=== PATIENT | male | born 1955 | race Caucasian/White ===

== ENCOUNTER → 2017-08-30 14:03 | Outpatient (CLI) | payer OTHER, SELFPAY ==
[2017-08-30 15:52] LABS: AST(SGOT) 28 U/L (15-37); Alanine Aminotransfer ALT/SGPT 42 U/L (16-61); Albumin, Serum 3.8 g/dL (3.2-5.0); Alkaline Phosphatase 78 U/L (45-117); Bilirubin, Direct 0.15 mg/dL (0.00-0.30); Cholesterol 113 mg/dL (200); Globulin 3.4 g/dL (2.2-4.2); High Density Lipoprotein 55 mg/dL; Protein, Total 7.2 g/dL (6.4-8.2); Triglycerides 67 mg/dL; Very Low Density Lipoprotein 13 mg/dL (5-40)
== END ==
PROVIDERS: Family Provider Family Medicine; PCP Family Medicine; Visit Provider Internal Medicine Cardiovascular Disease
DX: E78.5 Hyperlipidemia, unspecified (principal); Z79.899 Other long term (current) drug therapy
CPT/HCPCS: 36415; 80061; 80076

== ENCOUNTER → 2017-11-05 12:56 | Outpatient (CLI) | payer OTHER, SELFPAY ==
--- NOTE | 2017-11-05 12:56 | DT_ITS ---
This patient was seen during an EMR downtime November 01, 2017 - November 08, 2017. This patient may have a combination of paper and electronic documentation or all paper documentation. All documentation is viewable within the e-chart portion of [facility] for each patient visit.
== END ==
PROVIDERS: Family Provider Family Medicine; PCP Family Medicine; Visit Provider Family Medicine
DX: R19.7 Diarrhea, unspecified (principal)
CPT/HCPCS: 87493; 87506

== ENCOUNTER → 2017-11-12 08:32 | Outpatient (CLI) | payer OTHER, SELFPAY ==
[2017-11-12 10:51] LABS: Anion Gap 6 (5-15); BUN 17 mg/dL (7-18); BUN/Creat Ratio 18.3 RATIO (10-20); Calcium,Total 8.8 mg/dL (8.5-10.1); Chloride 107 mmol/L (98-107); Creatinine, Serum 0.93 mg/dL (0.70-1.30); EST Glomerular Filtration Rate 88 mL/min (>60); Est Glom Filt Rate - Afr Amer 106 mL/min (>60); Glucose 110 mg/dL (74-106); Potassium 4.4 mmol/L (3.5-5.1); Sodium Level 142 mmol/L (136-145)
== END ==
PROVIDERS: Family Provider Family Medicine; PCP Family Medicine; Visit Provider Family Medicine
DX: E11.9 Type 2 diabetes mellitus without complications (principal)
CPT/HCPCS: 36415; 80048

== ENCOUNTER → 2018-05-12 08:37 | Outpatient (CLI) | payer OTHER, SELFPAY ==
[2018-04-25 08:34] VITALS: BMI 31.2
[2018-05-12 10:44] LABS: Anion Gap 7 (5-15); BUN 20 mg/dL (7-18); BUN/Creat Ratio 24.1 RATIO (10-20); Calcium,Total 8.5 mg/dL (8.5-10.1); Chloride 107 mmol/L (98-107); Cholesterol 136 mg/dL (200); Creatinine, Serum 0.83 mg/dL (0.70-1.30); EST Glomerular Filtration Rate 100 mL/min (>60); Est Glom Filt Rate - Afr Amer 121 mL/min (>60); Glucose 116 mg/dL (74-106); High Density Lipoprotein 52 mg/dL; Potassium 4.1 mmol/L (3.5-5.1); Sodium Level 140 mmol/L (136-145); Triglycerides 75 mg/dL; Very Low Density Lipoprotein 15 mg/dL (5-40)
--- OUTSIDE RECORDS SUMMARY | 2018-06-28 01:50 | XMS RPT_ITS ---
:1955 Author Organization OHIP Care Team Providers Name Role Phone Duglas Smith Attending Unavailable Smith, Duglas Primary Care Unavailable Brian Espinoza Attending Unavailable Smith, Duglas Primary Care Unavailable Elizabeth, Florence Attending Unavailable Alexis, Brian Attending Unavailable Smith, Duglas Referring Unavailable Smith, Duglas Primary Care Unavailable Brian Espinoza Attending Unavailable Smith, Duglas Referring Unavailable Smith, Duglas Primary Care Unavailable Jolliff, Meghan Attending Unavailable Jolliff, Meghan Referring Unavailable Smith, Duglas Primary Care Unavailable Smith, Duglas Attending Unavailable Smith, uDglas Primary Care Unavailable Alexis, Brian Attending Unavailable Smith, Duglas Referring Unavailable PROBLEMS PROBLEMS DATE TYPE CONDITION / CODE ATTENDING STATUS SOURCE 04/25/2018 Unknown E78.5 - Brian Espinoza Active [place] Hyperlipidemia, Community unspecified / Hospital E78.5(ICD-10) Repository 04/25/2018 Unknown I25.10 - Brian Espinoza Active [place] Atherosclerotic heart Community disease of [facility] coronary artery Repository without angina pectoris / I25.10(ICD-10) 11/12/2017 Unknown E11.9 - Type 2 Duglas Smith Active [place] diabetes mellitus [facility] without complications Hospital / E11.9(ICD-10) Repository 10/04/2017 Unknown I10 - Essential Brian Espinoza (primary) Community hypertension / Hospital I10(ICD-10) Repository PROCEDURES PROCEDURES No Procedure Records FoundRESULTS RESULTS BASIC METABOLIC Collected: 05/12/2018 Status: F Source: [place] PROFILE (BMP) 8:[address] [facility]PITAL REPOSITORY TYPE CODE TESTS RESULT OUT OF RANGE REFERENCE UNITS LAB L501.0100 74-106 mg/dL High GLU 116 Result Comment: Fasting Glucose result from 100 to 125 mg/dL suggests IMPAIRED HOMEOSTASIS per A.D.A. criteria. Please note revised GLUCOSE reference range effective 2017. LAB L501.1000 7-18 mg/dL High BUN 20 LAB L501.1100 0.70-1.30 mg/dL Normal CREAT,SERUM 0.83 Result Comment: The validity of the calculated GFR AND GFRAA in patients over 70 years has not been determined. Clinical correlation is essential. LAB L501.1110 >60 mL/min Normal EST GFR 100 Result Comment: Non- GFR Calc LAB L501.1115 >60 mL/min Normal EST GFR - AA 121 Result Comment: GFR Calc LAB L501.1300 10-20 RATIO High BUN/CRE 24.1 LAB L501.2200 8.5-10.1 mg/dL CA Normal 8.5 LAB L501.5300 136-145 mmol/L NA Normal 140 LAB L501.5600 3.5-5.1 mmol/L K Normal 4.1 LAB L501.5900 98-107 mmol/L CL Normal 107 LAB L501.6100 21.0-32.0 mmol/L Normal CO2 26.0 LAB L501.6200 5-15 Normal GAP 7 Performed By: #### L500.2500, L500.4100 #### [facility] [address] [place], [place], [address] LIPID PROFILE Collected: 05/12/2018 Status: F Source: [place] 8:38 AM [facility] REPOSITORY TYPE CODE TESTS RESULT OUT OF RANGE REFERENCE UNITS LAB L501.4900 200 mg/dL Normal CHOL 136 Result Comment: <200 mg/dL Desirable 200-240 mg/dL Borderline >240 mg/dL High Risk LAB L501.5000 mg/dL Normal TRIG 75 Result Comment: The drugs N-Acetylcysteine and Metamizole may falsely depress this assay. Serum Triglycerides Reference Interval Normal <150 mg/dL Borderline high 150 - 199 mg/dL High 200 - 499 mg/dL Very High > or = 500 mg/dL LAB L501.6400 mg/dL Normal HDL 52 Result Comment: The drugs N-Acetylcysteine and Metamizole may falsely depress this assay. Reference Range HDL <40 mg/dL Low HDL Cholesterol HDL >or= 60 mg/dL High HDL Cholesterol LAB L501.6500 0-130 mg/dL Normal LDL 69 LAB L501.6600 5-40 mg/dL Normal VLDL 15 Performed By: #### L500.2500, L500.4100 #### [facility] [address] [place], [place], [address] CARDIOLOGY VISIT Observed: 04/25/2018 Status: F Source: [place] REPORT 8:59 AM [facility] REPOSITORY [facility] [address] [place] [address] OFFICE VISIT Date of Service: 04/25/18 MR#: [id number] Acct: [id number] Name: FLORES CURRY Rep #: [id number] : 1955 Provider: Brian Espinoza MD Age/Sex: 62/M Location: [facility] Status: Signed HPI HPI Chief Complaint: Routine f/u Details: Mr. Curry Is a very pleasant 62-year-old gentleman, non diabetic, with hypertension, hypercholesterolemia, positive premature coronary artery history in his father and paternal uncle, who presented to [facility] on 08/20/13 with acute anterior lateral myocardial infarction. Patient was emergently transported to [facility] where he underwent successful thrombectomy and bare metal stenting of the proximal LAD with 4.50 x 20 bare-metal vision stent. In addition he was found to have a critical lesion in his mid right coronary artery. He returned several weeks later electively to [facility] and underwent successful angioplasty and stenting of the mid RCA with a 4.0X 23 bare-metal stent. His LVEF obtained at the time of his anterior GA demonstrated this to be [id number]%, but repeat echocardiogram done in December 2013 demonstrates an ejection fraction of 65% post-GA. Both procedures were done via the right radial. Patient is taking care of his convalescing ill who recently had a seizure, and is slowly getting back to normal with a walker. He is dissipating stress by walking, exercising, and working on his [employer] truck. He reports that she is getting better, and participating more at home which is improving his stress. His blood pressure is as recorded on his iPhone, are in the 1 teens to 120s on a regular basis. The patient denies any chest pain, angina, shortness of breath or dyspnea on exertion. He is taking and tolerating his medicines well. interoffice today's blood pressure is 140/90 and pulse is 80 and regular. His physical exam is as below. His lipids as of 03/07/16 showed HDL of 49 and LDL of 45. His lipids as of 09/04/16 showed LDL of 46 and an HDL of 57. His lipids as of 02/23/17 showed LDL 37 and HDL of 54. Lipids as of 08/30/17 show an HDL of 55 and LDL of 45. Intake Vital Signs04/25/18 Height 5 ft 8.75 in 04/25/18 Weight: 210 lb 04/25/18 Body Mass Index (BMI) 31.2 04/25/18 Blood Pressure 140/90 H Intake Visit Reasons: 6 M [employer] Developer Required: No Is patient in pain?: No Allergies Tetanus Vaccines and Toxoid [Tetanus Vaccines AND Toxoid] Allergy (Verified 04/19/18 11:06) Unknown Medications Aspirin [Aspirin EC] 81 mg PO DAILY 03/14/14 [History Confirmed 04/25/18] nitroglycerin 0.4 mg sublingual tablet 0.4 mg SUBLINGUAL Q5- 15M PRN 10/01/17 [History Confirmed 04/25/18] atorvastatin 80 mg tablet 80 mg PO QDAY #90 tab 10/04/17 [Rx Confirmed 04/25/18] carvedilol 12.5 mg tablet 12.5 mg PO BID #180 tab 10/04/17 [Rx Confirmed 04/25/18] lisinopril 20 mg tablet 20 mg PO BID #180 tab 10/04/17 [Rx Confirmed 04/25/18] PFS Medical History Obesity (Chronic) Nonsustained ventricular tachycardia (Chronic) Anterolateral myocardial infarction (Chronic) Hypertension (Chronic) Hyperlipidemia (Chronic) Atherosclerotic heart disease of [place] coronary artery without angina pectoris (Chronic) Surgical History History of coronary artery stent placement (Chronic 08/2013) History of tonsillectomy (Resolved) History of vasectomy (Resolved) Family History Father CAD (coronary artery disease) Myocardial infarction Social History Smoking Status: Never smoker alcohol intake: never substance use type: does not use ROS Const Const: Positive for other (Feels well); negative for fatigue, weakness, body ache, fever(s), headache(s), chills, frequent falls, night sweats, daytime sleepiness, difficulty sleeping, excessive sweating, weight gain, weight loss, increased appetite, poor appetite or anorexia Eyes Eyes: Negative for blind spots, loss of peripheral vision, transient loss of vision, blurry vision, change in vision, double vision, floaters, tunnel vision or other ENT ENT: Negative for headache(s), dizziness, hearing loss, tinnitus, Nosebleed/epistaxis, balance problems, post nasal drip, lip swelling, tongue swelling, bleeding gums, hoarseness, neck pain, dry mouth or other Cardio Chest Pain: No Resp Respiratory: Negative for SOB with activity, SOB at rest, SOB orthopnea\SOB lying down, Coughing up blood/hemoptysis, chest congestion, pain on inspiration, snoring, stridor, wheezing, crackles, paroxysmal nocturnal dyspnea or other GI GI: Negative nausea, vomiting, heartburn, constipation, belching, bloating, cramping, vomiting blood/hematemesis, bright, red blood in stools, black,tarry stools, loose stools, Difficulty Swallowing or other : Negative for hematuria, frequent nighttime urination/ nocturia, erectile dysfunction or abnormal vaginal bleeding Musc Musc: Negative for balance problems, muscle aches/ myalgia, muscle weakness or joint pain Skin Skin: Negative redness, non-healing lesions, rash, unusual bruising, skin ulcer, wounds, jaundice or other Neuro Neuro: Negative for weakness, headache(s), frequent falls, blurry vision, double vision, dizziness, lightheadedness, near syncope, syncope, orthostatic symptoms, confusion, memory loss, restless legs, vertigo, seizures, lack of coordination or other [place]ashi Hematologic/Lymphatic: Negative for easy bleeding, easy bruising, enlarged lymph nodes or other Endo Endo: Negative for fatigue, excessive sweating, cold intolerance, heat intolerance, flushing, increased thirst/drinking, increased hunger, hair loss, hair growth or other Psych Psych: Negative for anxiety, depression, thoughts of harming anyone, thoughts of harming yourself, visual hallucinations, panic attacks or audible hallucinations Allergy Allergy/Immunology: Negative for lip swelling, Negative for tongue swelling, Negative for rash, Negative for throat swelling, Negative for hives Cardiology Exam Const Appearance: cooperative, healthy appearing and no acute distress Nutritional Appearance: well nourished Orientation: alert, oriented x3 and oriented to person Head Head: normal to inspection, atraumatic and normocephalic Nose: external nose normal Face and Sinus: face symmetric Mouth: oral mucosae normal Eyes General: appearance normal, both eyes and all related structures Eyelids: eyelids normal Conjunctivae: conjunctivae normal Pupils: PERRL and normal by confrontation EOM: EOM intact bilaterally Neck Neck: normal visual inspection and full ROM Carotids: normal carotid upstroke Chest Chest inspection: normal inspection of the chest Auscultation: Bilateral: Clear to Auscultation Cardio Palpation: normal PMI Rate: regular rate Rhythm: regular rhythm Heart sounds: S1 normal and S2 normal GI GI: normal to inspection, no hepatosplenomegaly and bowel sounds present Neuro General: alert, oriented x3, awake, CN's II-XI intact bilaterally and moves all extremities Skin Skin: no rashes or lesions noted Extremities Pulses: Normal: Right Femoral Pulse, Left Femoral Pulse, Right Dorsalis Pedis Pulse, Left Dorsalis Pedis Pulse, Right Posterior Tibial Pulse, Left Posterior Tibial Pulse, Right Radial Pulse, Left Radial Pulse Lower Extremity Edema: None: Bilateral Psych Psychological: normal affect Assessment AND Plan 1. Atherosclerotic heart disease of [place] coronary artery without angina pectoris I25.10 Thrombectomy w/BMS to Prox-Mid LAD 4.5 x 20 mm VeriFlex 08/20/13; and BMS to RCA w/ 4 x 23 mm Vision 09/06/13 @ [facility] Plan 1. Coronary artery disease: No exertional anginal symptoms at this time. No indication for any additional testing. His blood pressure for the most part at home as recorded on his iPhone is under very good control. He is consistently elevated when he comes to see the doctor, but it is actually getting better. Recommend he continue his baby aspirin, Coreg, lisinopril. No indication for stress testing at this time. 2. Hyperlipidemia E78.5 Plan 2. Hyperlipidemia: His LDL and HDL cholesterol are at goal. Continue Lipitor. 3. Return office in 6 months. This note was generated using a voice recognition system and there may be incorrect words, spelling or punctuation that were not noted when reviewing the office note prior to saving. Plan Detail Follow Up +6M (Espinoza) Coding Level of Care Code Off vis,est,level 3 Diagnoses Atherosclerotic heart disease of [place] coronary artery without angina pectoris I25.10 Hyperlipidemia E78.5 Coding Level of Care Code Off vis,est,level 3 Diagnoses Atherosclerotic heart disease of [place] coronary artery without angina pectoris I25.10 Hyperlipidemia E78.5 04/25/18 0859 <Electronically signed by Brian Espinoza MD> Date Brian Espinoza MD [facility] Signature: Date (if applicable) CC: Duglas Smith MD DOWNTIME REPORT Observed: 11/18/2017 Status: F Source: [place] 2:33 PM [facility] REPOSITORY [facility] Medical Records Department [address] [place] [address] Downtime Report MR#: [id number] Acct: [id number] Name: FLORES CURRY Rep #: [id number] : 1955 62 From: Zafar Horton PCP: Duglas Smith MD Status: REG CLI This patient was seen during an EMR downtime November 01, 2017 - November 08, 2017. This patient may have a combination of paper and electronic documentation or all paper documentation. All documentation is viewable within the e-chart portion of [facility] for each patient visit. BASIC METABOLIC Collected: 11/12/2017 Status: F Source: [place] PROFILE (BMP) 8:34 AM [facility] REPOSITORY TYPE CODE TESTS RESULT OUT OF RANGE REFERENCE UNITS LAB L501.0100 74-106 mg/dL High GLU 110 Result Comment: Fasting Glucose result from 100 to 125 mg/dL suggests IMPAIRED HOMEOSTASIS per A.D.A. criteria. Please note revised GLUCOSE reference range effective 2017. LAB L501.1000 7-18 mg/dL Normal BUN 17 LAB L501.1100 0.70-1.30 mg/dL Normal CREAT,SERUM 0.93 Result Comment: The validity of the calculated GFR AND GFRAA in patients over 70 years has not been determined. Clinical correlation is essential. LAB L501.1110 >60 mL/min Normal EST GFR 88 Result Comment: Non- GFR Calc LAB L501.1115 >60 mL/min Normal EST GFR - AA 106 Result Comment: GFR Calc LAB L501.1300 10-20 RATIO Normal BUN/CRE 18.3 LAB L501.2200 8.5-10.1 mg/dL CA Normal 8.8 LAB L501.5300 136-145 mmol/L NA Normal 142 LAB L501.5600 3.5-5.1 mmol/L K Normal 4.4 LAB L501.5900 98-107 mmol/L CL Normal 107 LAB L501.6100 21.0-32.0 mmol/L Normal CO2 29.0 LAB L501.6200 5-15 Normal GAP 6 Performed By: #### L500.2500 #### [facility] [address] [place], [address] Observed: 11/05/2017 Status: C Source: [place] ENTERIC PATHOGEN 12:40 PM [facility] PANEL STOOL REPOSITORY PANEL STOOL FINAL REPORT [facility] IDENTIFICATION Salmonella I 4,[5],12:i:-- TESTING PERFORMED AT [facility]. ORIGINAL REPORT ON FILE IN LAB CONTAINS ADDITIONAL TEST SITE INFORMATION. * This is an amended result. * A prior result that was reported as final has been changed. 11/12/17 1526 by KAMILAH Previously reported as: [facility] REPORT WAS ADDED * This is an amended result. * A prior result that was reported as final has been changed. 12/01/17 1406 by KAMILAH Previously reported as: [facility] REPORT RECIEVED 11/30/17 Salmonella species detected. Susceptibility testing not routinely performed but can be completed at the request by the ordering physician. Treatment is often not needed in many cases. This is an amplified DNA test which makes it both specific and sensitive. Copy of report sent to Infection Control Printer [id number] 11/06/17 0906 [place]TON. RESULTS CALLED TO [place] OFFICE - 11/06/17 0906 Ewelina Castorena. REPORT READ BACK BY SAME. . Normal Reference Range = Not Detected FINAL [facility] REPORT IDENTIFICATION SALMONELLA 4,5,12:i.-- TESTING PERFORMED AT [facility]. ORIGINAL REPORT ON FILE IN LAB CONTAINS ADDITIONAL TEST SITE INFORMATION. CAMPYLOBACTER Not Detected Salmonella Salmonella sp. Detected Shigella sp. Not Detected Shiga Toxin Not Detected Yersinia Not Detected VIBRIO Not Detected Norovirus Not Detected Rotavirus Not Detected ORGANISM 1: Salmonella Sp. Performed By: #### M100.637, M100.6796 #### [facility] [address] [place], [address] Observed: 11/05/2017 Status: F Source: [place] CAPELLAN (MOLECULAR) 12:40 PM [facility] REPOSITORY Cdiff-Molecular C. Diff DNA Negative- No toxigenic C. Diff DNA Detected NAAT METHOD Testing was performed using nucleic acid amplification Performed By: #### M100.637, M100.6796 #### [facility] [address] [place], [address] OFFICE VISIT REPORT Observed: 10/19/2017 Status: F Source: [place] 12:12 PM [facility] REPOSITORY [facility] [address] [address] OFFICE VISIT Date of Service: 10/19/17 MR#: [id number] Acct: [id number] Patient: FLORES CURRY Rep #: [id number] : 1955 Provider: Brian Espinoza MD Age/Sex: 61/M [place] [facility] [place]: Signed Intake Intake Visit Reasons: 2 wk bp ck per DJN Allergies Tetanus Vaccines and Toxoid [Tetanus Vaccines AND Toxoid] Allergy (Verified 10/04/17 08:21) Unknown Medications Aspirin [Aspirin EC] 81 mg PO DAILY 03/14/14 [History Confirmed 10/04/17] nitroglycerin 0.4 mg sublingual tablet 0.4 mg SUBLINGUAL Q5- 15M PRN 10/01/17 [History Confirmed 10/04/17] atorvastatin 80 mg tablet 80 mg PO QDAY #90 tab 10/04/17 [Rx Confirmed 10/04/17] carvedilol 12.5 mg tablet 12.5 mg PO BID #180 tab 10/04/17 [Rx Confirmed 10/04/17] lisinopril 20 mg tablet 20 mg PO BID #180 tab 10/04/17 [Rx Confirmed 10/04/17] Nursing Note During Office Visit 10/04/2017 pt BP was 148/94, Dr. Espinoza instructed pt to 1.) increase Lisinopril to 20 mg po twice daily, 2.) continue Coreg 12.5 mg po twice daily. Pt denies SOB, chest discomfort, dizziness, no lower extremity edema present. BP 148/94, HR 72, RR 18, home BP readings average 110/72. Reviewed the following with Zbigniew Cutler NP pt is to 1.) continue current medication therapy, 2.) bring BP cuff to next Office visit for correlation. 10/19/17 1212 <Electronically signed by Zbigniew ULLOAC> Date Zbigniew Newberry Omayra FRANCO-C Janeenigner Signature: Date (if applicable) CC: Geetha Bowers CARDIOLOGY VISIT Observed: 10/04/2017 Status: F Source: [place] REPORT 9:07 AM [facility] REPOSITORY [facility] [address] [place] [address] OFFICE VISIT Date of Service: 10/04/17 MR#: [id number] Acct: [id number] Name: FLORES CURRY Rep #: [id number] : 1955 Provider: Brian Espinoza MD Age/Sex: 61/M Location: [facility] Status: Signed HPI HPI Chief Complaint: Routine f/u Details: Mr. Curry Is a very pleasant 61-year-old gentleman, non diabetic, with hypertension, hypercholesterolemia, positive premature coronary artery history in his father and paternal uncle, who presented to [facility] on 08/20/13 with acute anterior lateral myocardial infarction. Patient was emergently transported to [facility] where he underwent successful thrombectomy and bare metal stenting of the proximal LAD with 4.50 x 20 bare-metal vision stent. In addition he was found to have a critical lesion in his mid right coronary artery. He returned several weeks later electively to [facility] and underwent successful angioplasty and stenting of the mid RCA with a 4.0X 23 bare-metal stent. His LVEF obtained at the time of his anterior GA demonstrated this to be [id number]%, but repeat echocardiogram done in December 2013 demonstrates an ejection fraction of 65% post-GA. Both procedures were done via the right radial. Patient is taking care of his convalescing ill who recently had a seizure, and is slowly getting back to normal with a walker. He is dissipating stress by walking, exercising, and working on his [employer] truck. Nonetheless he is quite stressed out, and is looking forward for her illness to be over. interoffice today's blood pressure is 160/98 and recheck it finding it to be 142/92. And pulse is 72 and regular. His physical exam is as below. His lipids as of 03/07/16 showed HDL of 49 and LDL of 45. His lipids as of 09/04/16 showed LDL of 46 and an HDL of 57. His lipids as of 02/23/17 showed LDL 37 and HDL of 54. Lipids as of 08/30/17 show an HDL of 55 and LDL of 45 Intake Vital Signs10/04/17 Blood Pressure 142/92 10/04/17 Pulse Rate 70 Intake Visit Reasons: 6 M FU Allergies Tetanus Vaccines and Toxoid [Tetanus Vaccines AND Toxoid] Allergy (Verified 10/04/17 08:21) Unknown Medications Aspirin [Aspirin EC] 81 mg PO DAILY 03/14/14 [History Confirmed 10/04/17] nitroglycerin 0.4 mg sublingual tablet 0.4 mg SUBLINGUAL Q5- 15M PRN 10/01/17 [History Confirmed 10/04/17] atorvastatin 80 mg tablet 80 mg PO QDAY #90 tab 10/04/17 [Rx Confirmed 10/04/17] carvedilol 12.5 mg tablet 12.5 mg PO BID #180 tab 10/04/17 [Rx Confirmed 10/04/17] lisinopril 20 mg tablet 20 mg PO BID #180 tab 10/04/17 [Rx Confirmed 10/04/17] [facility] Medical History Obesity (Chronic) Nonsustained ventricular tachycardia (Chronic) Anterolateral myocardial infarction (Chronic) Hypertension (Chronic) Hyperlipidemia (Chronic) Atherosclerotic heart disease of te[place] coronary artery without angina pectoris (Chronic) Surgical History History of coronary artery stent placement (Chronic 08/2013) History of tonsillectomy (Resolved) History of vasectomy (Resolved) Family History Father CAD (coronary artery disease) Myocardial infarction Social History Smoking Status: Never smoker alcohol intake: never substance use type: does not use ROS Const Const: Positive for other (Admits to being under a lot of stress); negative for fatigue, weakness, difficulty sleeping, frequent falls, headache(s) or excessive sweating Eyes Eyes: Negative for loss of peripheral vision, transient loss of vision, blurry vision or double vision ENT ENT: Negative for headache(s), dizziness, Nosebleed/epistaxis or balance problems Cardio Chest Pain: No Edema: None Muscle aches with walking: None Resp Respiratory: Negative for SOB with activity, SOB at rest, SOB orthopnea\SOB lying down or paroxysmal nocturnal dyspnea GI GI: Negative nausea or heartburn : Negative for hematuria Musc Musc: Negative for muscle aches/ myalgia, muscle weakness, joint pain or balance problems Skin Skin: Negative non-healing lesions, unusual bruising or rash Neuro Neuro: Negative for weakness, frequent falls, blurry vision, headache(s), dizziness, lightheadedness, orthostatic symptoms or double vision Tashi Hematologic/Lymphatic: Negative for easy bruising Endo Endo: Negative for fatigue, excessive sweating or increased thirst/drinking Psych Psych: Negative for anxiety or depression Allergy Allergy/Immunology: Negative for hives, Negative for rash Cardiology Exam Const Appearance: cooperative, healthy appearing and no acute distress Nutritional Appearance: well nourished Orientation: alert, oriented x3 and oriented to person Head Head: normal to inspection, atraumatic and normocephalic Nose: external nose normal Face and Sinus: face symmetric Mouth: oral mucosae normal Eyes General: appearance normal, both eyes and all related structures Eyelids: eyelids normal Conjunctivae: conjunctivae normal Pupils: PERRL and normal by confrontation EOM: EOM intact bilaterally Neck Neck: normal visual inspection and full ROM Carotids: normal carotid upstroke Chest Chest inspection: normal inspection of the chest Auscultation: Bilateral: Clear to Auscultation Cardio Palpation: normal PMI Rate: regular rate Rhythm: regular rhythm Heart sounds: S1 normal and S2 normal GI GI: normal to inspection, no hepatosplenomegaly and bowel sounds present Neuro General: alert, oriented x3, awake, CN's II-XI intact bilaterally and moves all extremities Skin Skin: no rashes or lesions noted Extremities Pulses: Normal: Right Femoral Pulse, Left Femoral Pulse, Right Dorsalis Pedis Pulse, Left Dorsalis Pedis Pulse, Right Posterior Tibial Pulse, Left Posterior Tibial Pulse, Right Radial Pulse, Left Radial Pulse Lower Extremity Edema: None: Bilateral Psych Psychological: normal affect Assessment AND Plan 1. Atherosclerotic heart disease of tejon coronary artery without angina pectoris I25.10 Thrombectomy w/BMS to Prox-Mid LAD 4.5 x 20 mm VeriFlex 08/20/13; and BMS to RCA w/ 4 x 23 mm Vision 09/06/13 @ [facility] Plan 1. Coronary artery disease: No exertional anginal symptoms at this time. No indication for any additional testing. Recommend he continue baby aspirin, Coreg and lisinopril. 2. Hypertension I10 Plan 2. Hypertension: His blood pressure is not optimized and has not been optimized on each visit. Although he is somewhat stressed out, I am concerned about uncontrolled hypertension at home. I recommended increasing his lisinopril to 20 mrem p.o. twice daily, continue Coreg 12.5 mg p.o. twice daily, and returning in 2 weeks for a blood pressure check. If his blood pressure is still elevated, would recommend hydrochlorothiazide 12.5 mg p.o. daily. 3. Hyperlipidemia E78.5 Plan 3. Hyperlipidemia: His LDL and HDL cholesterol are at goal. Continue Lipitor. 4. Return office in 6 months. This note was generated using a voice recognition system and there may be incorrect words, spelling or punctuation that were not noted when reviewing the office note prior to saving. 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 Hypertension I10 Hyperlipidemia E78.5 Coding Level of Care Code Off vis,est,level 3 Diagnoses Atherosclerotic heart disease of [place] coronary artery without angina pectoris I25.10 Hypertension I10 Hyperlipidemia E78.5 10/04/17 0907 <Electronically signed by Brian Espinoza MD> Date Brian Espinoza MD Cosigner Signature: Date (if applicable) CC: Duglas Smith MD LIVER PROFILE Collected: 08/30/2017 Status: F Source: LEXI 2:04 PM [facility] Order Comment: Order Date: 02/27/17 Order Info: [id number] - *Hepatic Function Panel Order Info: [id number] - *Lipid Profile CC PCP Comments: 12 hours fasting, may have water. TYPE CODE TESTS RESULT OUT OF RANGE REFERENCE UNITS LAB L501.1500 6.4-8.2 g/dL Normal T PROT 7.2 LAB L501.1800 3.2-5.0 g/dL Normal ALB 3.8 LAB L501.1950 2.2-4.2 g/dL Normal GLOB 3.4 LAB L501.4100 15-37 U/L Normal AST 28 LAB L501.4305 45-117 U/L Normal ALK P 78 LAB L501.4405 16-61 U/L Normal ALT 42 Result Comment: Please note revised ALT reference range effective 2017. LAB L501.4600 0.20-1.00 mg/dL Normal T BILI 0.70 LAB L501.4700 0.00-0.30 mg/dL Normal D BILI 0.15 Performed By: #### L500.3400 #### [facility] [address] [place], [place], [address] LIPID PROFILE Collected: 08/30/2017 Status: F Source: LEXI 2:04 PM [facility] Order Comment: Order Date: 02/27/17 Order Info: [id number] - *Hepatic Function Panel Order Info: [id number] - *Lipid Profile CC PCP Comments: 12 hours fasting, may have water. TYPE CODE TESTS RESULT OUT OF RANGE REFERENCE UNITS LAB L501.4900 200 mg/dL Normal CHOL 113 Result Comment: <200 mg/dL Desirable 200-240 mg/dL Borderline >240 mg/dL High Risk LAB L501.5000 mg/dL Normal TRIG 67 Result Comment: The drugs N-Acetylcysteine and Metamizole may falsely depress this assay. Serum Triglycerides Reference Interval Normal <150 mg/dL Borderline high 150 - 199 mg/dL High 200 - 499 mg/dL Very High > or = 500 mg/dL LAB L501.6400 mg/dL Normal HDL 55 Result Comment: The drugs N-Acetylcysteine and Metamizole may falsely depress this assay. Reference Range HDL <40 mg/dL Low HDL Cholesterol HDL >or= 60 mg/dL High HDL Cholesterol LAB L501.6500 0-130 mg/dL Normal LDL 45 LAB L501.6600 5-40 mg/dL Normal VLDL 13 Performed By: #### L500.4100 #### [facility] [address] [place], [address] ALLERGIES ALLERGIES DATE TYPE / CODE NAME / CODE REACTION SEVERITY SOURCE 04/19/2018 Drug Tetanus Unknown Unknown [facility] Allergy/[facility] 972391(SNOM Toxoid/[id number] Repository ED CT) 19(RXNORM) ENCOUNTERS ENCOUNTERS ADMIT/DISCHARGE ACCOUNT ADMITTING ENCOUNTER LOCATION SOURCE NUMBER CLASS 05/12/2018 [id number] Ambulatory [facility] 6 [facility] ing:MFPLAB Repository 04/25/2018/ [id number] Ambulatory BMSBuilding:B [place] 8 3 [facility] Repository 11/12/2017 [id number] Ambulatory [facility] 3 [facility] ing:MFPLAB Repository 11/05/2017 [id number] Ambulatory [facility] 2 [facility] ing:LAB Repository 10/19/2017/ [id number] Ambulatory BMSBuilding:B [place] 8 1 [facility] Repository 10/04/2017/ [id number] Ambulatory BMSBuilding:B [place] 8 1 [facility] Repository 10/01/2017 [id number] Ambulatory BMSBuilding:B [place] 1 [facility] Repository 08/30/2017 [id number] Ambulatory [facility] 5 [facility] ing:MFPLAB Repository PAYERS PAYERS ENCOUNTER GUARANTOR PAYER SUBSCRIBER SOURCE 05/12/2018 FLORES [id number] Primary Insurance:MED FLORES KRISHNA: [place] [facility]ON [facility] [id number] Number: [facility] [address]Sdz: [phone]) [id number] Repository [phone] () Date:1155-90-86[address] [address], [place] [address]EV: CHECK WEBSITE 05/12/2018 Secondary NOT GIVENUNK [place] Insurance:SELF PAY [facility]: Effective Repository Date:2018-05-12 04/25/2018 FLORES Jaspal [id number] Primary Insurance:MED FLORES Jaspal MIRELLADOB: Lexi CHIVO [employer] TPAPolicy [id number], [place] Number: [facility] [address]Lug: 330 [id number] Repository [phone] () Date:1148-78-64IE [address] [address], [place] [address]CJ: CHECK WEBSITE 04/25/2018 Secondary NOT GIVENUNK [place] Insurance:SELF PAY [facility] Number: Effective Repository Date:2018-04-25 11/12/2017 FLORES Jaspal [id number] Primary Insurance:MED FLORES JENNINGSB: [place] CHIVO [employer] TPAP[employer]icy [id number], [place] Number: Hospital [address]Xdh: 330 [id number] Repository [phone] () Date:1801-97-40CU [address] [address]DSVGXLPD[place], [place] [address]GI: CHECK WEBSITE 11/12/2017 Secondary NOT GIVENUNK [place] Insurance:SELF PAY [facility] Number: Effective Repository Date:2017-11-12 11/05/2017 FLORES Jaspal [id number] Primary Insurance:MED FLORES Jaspal MIRELLADOB: Lexi CHIVO [employer] TP[employer] [id number], [place] Number: [facility] [address]Ljs: 330 [id number] Repository [phone] () Date:1404-50-96SY [address] [address], [place] [address]DK: CHECK WEBSITE 11/05/2017 Secondary NOT GIVENUNK [place] Insurance:SELF PAY [facility] Number: Effective Repository Date:2017-11-05 10/19/2017 FLORES [id number] Primary Insurance:MED FLORES CURRYDOB: [place] CHIVO M[employer] TPAP[employer]icy [id number] [place] Number: Hospital [address]Tui: [phone] [id number] Repository [phone] (HP) Date:6571-74-71RY [address] [address], [place] [address]VR: CHECK WEBSITE 10/19/2017 Secondary NOT GIVENUNK [place] Insurance:SELF PAY [facility] Number: Effective Repository Date:2017-10-19 10/04/2017 FLORES [id number] Primary Insurance:MED FLORES CURRYDOB: [place] CHIVO [employer] TPAP[employer] [id number] [place] Number: [facility] [id number]: 330 [id number] Repository [phone] (HP) Date:1123-61-61UI [address] [address], [place] [address]CP: CHECK WEBSITE 10/04/2017 Secondary NOT GIVENUNK [place] Insurance:SELF PAY [facility] Number: Effective Repository Date:2017-05-11 10/01/2017 FLORES [id number] Primary Insurance:MED Flores JenningsB: Lexi SYLVIAN M[employer] TPAP[employer]icy [id number], [place] Number: Hospital [id number]: 330 [id number] Repository [phone] () Date:9667-63-81RT [address] [address]YOUJBX[place], [place] [address]MR: CHECK WEBSITE 10/01/2017 Secondary NOT GIVENUNK [place] Insurance:SELF PAY [facility] Number: Effective Repository Date:2017-10-01 08/30/2017 FLORES [id number] Primary Insurance:MED Flores JenningsB: [place] SYLVIAN MUT[employer] TPAPolicy [id number], [place] Number: Hospital [id number]: 330 [id number] Repository [phone] () Date:0608-33-01PS [address] [address], [place] [address]YX: CHECK WEBSITE 08/30/2017 Secondary NOT GIVENUNK [place] Insurance:SELF PAY [facility] Number: Effective Repository Date:2017-08-30
== END ==
PROVIDERS: Family Provider Family Medicine; PCP Family Medicine; Visit Provider Family Medicine
DX: I10 Essential (primary) hypertension (principal)
CPT/HCPCS: 36415; 80048; 80061

== ENCOUNTER → 2018-11-11 | Outpatient (CLI) | payer OTHER, SELFPAY ==
[2018-04-25 08:34] VITALS: BMI 31.2
[2018-11-11 10:34] LABS: Anion Gap 10 (5-15); BUN 18 mg/dL (7-18); BUN/Creat Ratio 21.9 RATIO (10-20); Calcium,Total 8.6 mg/dL (8.5-10.1); Chloride 108 mmol/L (98-107); Cholesterol 116 mg/dL (200); Creatinine, Serum 0.82 mg/dL (0.70-1.30); EST Glomerular Filtration Rate 101 mL/min (>60); Est Glom Filt Rate - Afr Amer 122 mL/min (>60); Glucose 109 mg/dL (74-106); High Density Lipoprotein 50 mg/dL; Potassium 4.2 mmol/L (3.5-5.1); Sodium Level 143 mmol/L (136-145); Triglycerides 81 mg/dL; Very Low Density Lipoprotein 16 mg/dL (5-40)
== END | disposition home or self-care (01) ==
LOC: MFPLAB 08:32
PROVIDERS: Family Provider Family Medicine; PCP Family Medicine; Referring Provider Family Medicine; Visit Provider Family Medicine
DX: I10 Essential (primary) hypertension (principal)
CPT/HCPCS: 36415; 80048; 80061

== ENCOUNTER → 2019-01-12 | Outpatient (CLI) | payer OTHER, SELFPAY ==
[2018-12-29 08:58] VITALS: BMI 34.1
--- NOTE | 2019-01-12 12:43 | ECHOCS_ITS ---
Reason For Study: CAD Procedure This was a 2D Doppler, Color Flow transthoracic echocardiogram. The study was technically difficult. Contrast injection was performed. Exam performed in department. Left Ventricle Normal size and thickness. The estimated ejection fraction is 65 %. Stage 1 diastolic dysfunction. No regional wall motion abnormalities noted. Right Ventricle Moderately dilated right ventricle. Normal systolic function. Atria Normal left atrium. Normal right atrium. Normal atrial septum. Bubble contrast study negative for right to left interatrial shunt. Mitral Valve The mitral valve is structurally normal. No prolapse or stenosis seen. Tricuspid Valve Normal tricuspid valve. Trivial tricuspid valve insufficiency. Right ventricular systolic pressure estimated to be 20 mmHg. Aortic Valve Normal aortic valve. Trisinus/trileaflet aortic valve. Pulmonic Valve Normal pulmonic valve. Great Vessels Normal aortic root. Normal arch. Normal inferior vena cava. Inferior vena cava collapse with sniff. Pericardium/Pleural No pericardial effusion. Medication 22 gauge I.V. with prn adaptor inserted into right arm. Diluted definity 3.5ml given slow IV push to enhance endocardial definition. MMode/2D Measurements & Calculations LVIDd: 4.6 cm IVSd: 0.71 cm Ao root diam: 3.3 cm LVIDs: 3.2 cm LVPWd: 0.78 cm RVDd: 4.2 cm FS: 30.2 % LAV(MOD-bp): 39.7 ml LVAd ap4: 33.6 cm2 SV(MOD-sp4): 52.3 ml LAV(MOD-bp) Indexed: 19.2 ml/m2 EDV(MOD-sp4): 105.6 ml LAV(MOD-sp2): 30.4 ml EDV(sp4-el): 108.1 ml LAV(MOD-sp4): 48.8 ml LVAs ap4: 22.5 cm2 ESV(MOD-sp4): 53.3 ml ESV(sp4-el): 55.8 ml EF(MOD-sp4): 49.5 % EF(sp4-el): 48.4 % SV(sp4-el): 52.3 ml LA A4 area: 17.1 cm2 LA dimension(2D): 4.0 cm RA A4 area: 10.2 cm2 Time Measurements MV dec time: 0.17 sec Doppler Measurements & Calculations MV E max donavon: 63.2 cm/sec Lat Peak E' Donavon: 7.9 cm/sec Med Peak E' Donavon: 4.8 cm/sec MV A max donavon: 77.1 cm/sec E/E' lat: 8.0 E/E' med: 13.2 MV E/A: 0.82 Ao V2 max: 112.8 cm/sec LV V1 max: 90.3 cm/sec PA V2 max: 124.3 cm/sec Ao max P.1 mmHg LV V1 max P.3 mmHg TR max donavon: 200.4 cm/sec TR max P.1 mmHg Interpretation Summary The estimated ejection fraction is 65 %. Stage 1 diastolic dysfunction. Moderately dilated right ventricle. Bubble contrast study negative for right to left interatrial shunt. Trivial tricuspid valve insufficiency. Right ventricular systolic pressure estimated to be 20 mmHg. Compared to echo report dated 01/17/2014, no appreciable changes noted. The study was technically difficult. Contrast injection was performed. Ordering Physician: Brian Espinoza Referring Physician: Brian Espinoza Performed By: Anitha Bettencourt, LEONARDO, RVT
== END | disposition home or self-care (01) ==
LOC: CVS 12:42
PROVIDERS: Family Provider Family Medicine; PCP Family Medicine; Referring Provider Internal Medicine Cardiovascular Disease; Visit Provider Internal Medicine Cardiovascular Disease
DX: I21.09 ST elevation (STEMI) myocardial infarction involving other coronary artery of anterior wall (principal); I47.2 Ventricular tachycardia; I10 Essential (primary) hypertension; Z95.5 Presence of coronary angioplasty implant and graft
CPT/HCPCS: 93306; Q9957; A4216; C8929

== ENCOUNTER → 2019-01-17 08:50 | Outpatient (CLI) | payer OTHER, SELFPAY ==
[2018-12-29 08:58] VITALS: BMI 34.1
--- NOTE | 2019-01-17 08:51 | STEWCON_ITS ---
Reason For Study: DYSPNEA/SOB Stress Results Protocol: Stress Echocardiogram Maximum Predicted HR: 158 bpm Target HR: 134 bpm % Maximum Predicted HR: 92 % DurationHeart Rate Stage (mm:ss) (bpm) BP Comment BASELINE 83 152/94DILUTED DEFINITY 2 CC USED YVAN PROTOCOL- STAGE 1 3:00 111 150/88NO CP, NO SOB YVAN PROTOCOL- STAGE 2 3:00 125 164/80NO CP, NO SOB YVAN PROTOCOL- STAGE 3 3:00 137 168/84NO CP, SL SOB YVAN PROTOCOL- STAGE 4 0:30 146 / NO CP, SL SOB, LEG FATIGUE RECOVERY 103 120/80 Stress Duration: 9:30 mm:ss Maximum Stress HR: 146 bpm Baseline Echocardiogram Findings The estimated ejection fraction is 65 %. Stress Echo Wall motion Data Resting WM Intermediate WM Stress WM Resting Wall Motion Wall Motion Stress No regional wall motion No regional wall motion abnormalities noted. abnormalities noted. EKG Data The baseline ECG displays normal sinus rhythm. The patient exercised according to the regular Yvan protocol for a total duration of 10:08. The maximum heart rate attained was 146 beats per minute. This was 92% of maximum predicted heart rate. The patient exercised into stage 4 of the Yvan protocol. During stress, there were no ST or T wave changes noted to suggest ischemia. No clinical angina was noted. Interpretation Summary The estimated ejection fraction is 65 %. Normal, adequate, treadmill echocardiogram. Negative for ischemia by EKG and echocardiographic criteria. No anginal symptoms noted. Rare PVC noted. Appropriate blood pressure response to exercise. Average exercise capacity for age. Test terminated due to the attainment target heart rate and leg discomfort. Decreased sensitivity due to poor echo windows requiring Definity agent. Test terminated final LVEF of 75%. No complications. The study was technically difficult. Contrast injection was performed. Ordering Physician: Brian Espinoza Referring Physician: Brian Espinoza Performed By: Cindy Gotti RDCS
== END ==
PROVIDERS: Family Provider Family Medicine; PCP Family Medicine; Referring Provider Internal Medicine Cardiovascular Disease; Visit Provider Internal Medicine Cardiovascular Disease
DX: R06.09 Other forms of dyspnea (principal); R06.02 Shortness of breath; I25.10 Atherosclerotic heart disease of native coronary artery without angina pectoris; I10 Essential (primary) hypertension; E78.5 Hyperlipidemia, unspecified; I25.2 Old myocardial infarction; I47.2 Ventricular tachycardia; Z95.5 Presence of coronary angioplasty implant and graft
CPT/HCPCS: 93017; 93350; Q9957; A4216; C8928

== ENCOUNTER → 2019-05-08 08:35 | Outpatient (CLI) | payer OTHER, SELFPAY ==
[2018-12-29 08:58] VITALS: BMI 34.1
[2019-05-08 10:53] LABS: Anion Gap 6 (5-15); BUN 21 mg/dL (7-18); BUN/Creat Ratio 21.5 RATIO (10-20); Calcium,Total 8.6 mg/dL (8.5-10.1); Chloride 110 mmol/L (98-107); Cholesterol 142 mg/dL (200); Creatinine, Serum 0.98 mg/dL (0.70-1.30); EST Glomerular Filtration Rate 83 mL/min (>60); Est Glom Filt Rate - Afr Amer 100 mL/min (>60); Glucose 119 mg/dL (74-106); High Density Lipoprotein 54 mg/dL; Potassium 4.4 mmol/L (3.5-5.1); Sodium Level 141 mmol/L (136-145); Triglycerides 94 mg/dL; Very Low Density Lipoprotein 19 mg/dL (5-40)
== END ==
PROVIDERS: Family Provider Family Medicine; PCP Family Medicine; Visit Provider Family Medicine
DX: I10 Essential (primary) hypertension (principal)
CPT/HCPCS: 36415; 80048; 80061

== ENCOUNTER → 2020-01-09 09:49 | Outpatient (CLI) | payer OTHER, SELFPAY ==
[2020-01-09 08:13] VITALS: BMI 31.6
[2020-01-09 12:25] LABS: Absolute Lymphocyte Count 1.37 X10^3/uL (0.83-4.51); Absolute Neutrophil Count 4.5 X10^3/uL (2.0-7.7); Basophil# 0.05 X10^3/uL; Basophil% 0.7 % (0-1); Eosinophil# 0.33 X10^3/uL; Eosinophils% 4.8 % (0-5); Hematocrit 47.3 % (40-54); Hemoglobin 15.7 g/dL (13.0-16.5); Lymphocyte # 1.37 X10^3/ul (4.0); Lymphocyte % 19.8 % (19-41); Mean Corp Hgb Conc 33.2 g/dL (32-36); Mean Corpuscular Hgb 30.5 pg (27.0-32.0); Mean Platelet Vol. 10.3 fl (6.2-12.0); Monocyte# 0.61 X10^3/uL; Monocyte% 8.8 % (0-10); NRBC Flagged by Analyzer 0 % (0-5); Neutrophil # 4.54 X10^3/uL (2.7-7.7); Neutrophil % 65.5 % (47-70); Platelet Count 264 K/mm3 (150-450); RBC Distribution Width CV 13.4 % (11.6-14.6); RBC Distribution Width SD 45.9 fl (35.1-43.9); Red Blood Count 5.14 M/mm3 (4.6-6.2); White Blood Count 6.9 K/mm3 (4.4-11.0)
[2020-01-09 12:48] LABS: ALB/GLOB Ratio 1.1 RATIO (0.9-2.4); AST(SGOT) 28 U/L (15-37); Alanine Aminotransfer ALT/SGPT 40 U/L (16-61); Albumin, Serum 3.9 g/dL (3.2-5.0); Alkaline Phosphatase 83 U/L (45-117); Anion Gap 7 (5-15); BUN 22 mg/dL (7-18); BUN/Creat Ratio 24.1 RATIO (10-20); Calcium,Total 9.1 mg/dL (8.5-10.1); Chloride 104 mmol/L (98-107); Cholesterol 144 mg/dL (200); Creatinine, Serum 0.91 mg/dL (0.70-1.30); EST Glomerular Filtration Rate 89 mL/min (>60); Est Glom Filt Rate - Afr Amer 108 mL/min (>60); Globulin 3.6 g/dL (2.2-4.2); Glucose 116 mg/dL (74-106); High Density Lipoprotein 61 mg/dL; Potassium 3.9 mmol/L (3.5-5.1); Protein, Total 7.5 g/dL (6.4-8.2); Sodium Level 138 mmol/L (136-145); Triglycerides 92 mg/dL; Very Low Density Lipoprotein 18 mg/dL (5-40)
[2020-01-09 17:04] LABS: Hemoglobin A1c 6.3 % (3.8-5.6)
== END ==
PROVIDERS: PCP Internal Medicine; Referring Provider Internal Medicine; Visit Provider Internal Medicine
DX: E78.5 Hyperlipidemia, unspecified (principal); I10 Essential (primary) hypertension; R73.9 Hyperglycemia, unspecified
CPT/HCPCS: 36415; 80053; 80061; 83036; 85025

== ENCOUNTER → 2020-04-10 09:55 | Outpatient (CLI) | payer OTHER, SELFPAY ==
[2020-04-10 09:55] VITALS: BMI 31.6
[2020-04-10 12:41] LABS: Anion Gap 4 (5-15); BUN 19 mg/dL (7-18); BUN/Creat Ratio 19.8 RATIO (10-20); Calcium,Total 9.1 mg/dL (8.5-10.1); Chloride 109 mmol/L (98-107); Creatinine, Serum 0.96 mg/dL (0.70-1.30); EST Glomerular Filtration Rate 84 mL/min (>60); Est Glom Filt Rate - Afr Amer 102 mL/min (>60); Glucose 117 mg/dL (74-106); Potassium 3.9 mmol/L (3.5-5.1); Sodium Level 140 mmol/L (136-145)
[2020-04-10 12:47] LABS: Hemoglobin A1c 6.3 % (3.8-5.6)
== END ==
PROVIDERS: PCP Internal Medicine; Referring Provider Internal Medicine; Visit Provider Internal Medicine
DX: I10 Essential (primary) hypertension (principal); R73.03 Prediabetes
CPT/HCPCS: 36415; 80048; 83036

== ENCOUNTER → 2020-08-30 08:59 | Outpatient (CLI) | payer OTHER, SELFPAY ==
[2020-08-30 08:08] VITALS: BMI 31.7
[2020-08-30 12:29] LABS: Hemoglobin A1c 6.1 % (3.8-5.6)
[2020-08-30 12:46] LABS: ALB/GLOB Ratio 1.1 RATIO (0.9-2.4); AST(SGOT) 30 U/L (15-37); Alanine Aminotransfer ALT/SGPT 51 U/L (16-61); Albumin, Serum 3.9 g/dL (3.2-5.0); Alkaline Phosphatase 81 U/L (45-117); Anion Gap 5 (5-15); BUN 19 mg/dL (7-18); BUN/Creat Ratio 20.7 RATIO (10-20); Calcium,Total 9.2 mg/dL (8.5-10.1); Chloride 104 mmol/L (98-107); Creatinine, Serum 0.92 mg/dL (0.70-1.30); EST Glomerular Filtration Rate 88 mL/min (>60); Est Glom Filt Rate - Afr Amer 107 mL/min (>60); Globulin 3.6 g/dL (2.2-4.2); Glucose 125 mg/dL (74-106); Potassium 4.1 mmol/L (3.5-5.1); Protein, Total 7.5 g/dL (6.4-8.2); Sodium Level 137 mmol/L (136-145)
== END ==
PROVIDERS: PCP Internal Medicine; Referring Provider Internal Medicine; Visit Provider Internal Medicine
DX: I10 Essential (primary) hypertension (principal); R73.03 Prediabetes
CPT/HCPCS: 36415; 80053; 83036

== ENCOUNTER → 2020-11-29 09:04 | Outpatient (CLI) | payer OTHER, SELFPAY ==
[2020-11-29 08:21] VITALS: BMI 31.7
[2020-11-29 12:21] LABS: Absolute Lymphocyte Count 1.34 X10^3/uL (0.83-4.51); Absolute Neutrophil Count 4.3 X10^3/uL (2.0-7.7); Basophil# 0.06 X10^3/uL; Basophil% 0.9 % (0-1); Eosinophil# 0.37 X10^3/uL; Eosinophils% 5.5 % (0-5); Hematocrit 47.5 % (40-54); Hemoglobin 15.8 g/dL (13.0-16.5); Lymphocyte # 1.34 X10^3/ul (0.83-4.51); Lymphocyte % 19.9 % (19-41); Mean Corp Hgb Conc 33.3 g/dL (32-36); Mean Corpuscular Hgb 30.2 pg (27.0-32.0); Mean Corpuscular Volume 90.6 fL (80-94); Mean Platelet Vol. 10.1 fl (6.2-12.0); Monocyte# 0.63 X10^3/uL; Monocyte% 9.3 % (0-10); NRBC Flagged by Analyzer 0 % (0-5); Neutrophil # 4.33 X10^3/uL (2.7-7.7); Neutrophil % 64.1 % (47-70); Platelet Count 269 K/mm3 (150-450); RBC Distribution Width CV 13.3 % (11.6-14.6); RBC Distribution Width SD 44.4 fl (35.1-43.9); Red Blood Count 5.24 M/mm3 (4.6-6.2); White Blood Count 6.8 K/mm3 (4.4-11.0)
[2020-11-29 12:32] LABS: Hemoglobin A1c 6.4 % (3.8-5.6)
[2020-11-29 12:44] LABS: ALB/GLOB Ratio 1.1 RATIO (0.9-2.4); AST(SGOT) 25 U/L (15-37); Alanine Aminotransfer ALT/SGPT 37 U/L (16-61); Albumin, Serum 3.8 g/dL (3.2-5.0); Alkaline Phosphatase 87 U/L (45-117); Anion Gap 7 (5-15); BUN 20 mg/dL (7-18); BUN/Creat Ratio 20.4 RATIO (10-20); Calcium,Total 9.2 mg/dL (8.5-10.1); Chloride 106 mmol/L (98-107); Cholesterol 138 mg/dL (200); Creatinine, Serum 0.98 mg/dL (0.70-1.30); EST Glomerular Filtration Rate 82 mL/min (>60); Est Glom Filt Rate - Afr Amer 99 mL/min (>60); Globulin 3.5 g/dL (2.2-4.2); Glucose 116 mg/dL (74-106); High Density Lipoprotein 53 mg/dL; Potassium 4.1 mmol/L (3.5-5.1); Protein, Total 7.3 g/dL (6.4-8.2); Sodium Level 140 mmol/L (136-145); Triglycerides 92 mg/dL; Very Low Density Lipoprotein 18 mg/dL (5-40)
== END ==
PROVIDERS: PCP Internal Medicine; Referring Provider Internal Medicine; Visit Provider Internal Medicine
DX: E11.9 Type 2 diabetes mellitus without complications (principal); I10 Essential (primary) hypertension
CPT/HCPCS: 36415; 80053; 80061; 83036; 85025

== ENCOUNTER → 2020-12-03 16:01 | Outpatient (CLI) | payer OTHER, SELFPAY ==
[2020-11-29 08:21] VITALS: BMI 31.7
--- NOTE | 2020-12-03 16:02 | RAD_ITS ---
STUDY: X-RAY - PELVIS AND RIGHT HIP REASON FOR EXAM: Male, 65 years old. Right hip pain. TECHNIQUE: 3 views of the pelvis and hip. COMPARISON: None. FINDINGS: There is a non-specific bowel gas pattern. Phleboliths. Mild generalized osteopenia. Normal bilateral iliac wings, sacroiliac joints and visualized sacrum. Normal bilateral superior and inferior pubic rami. Normal pubic symphysis. Normal bilateral ischial tuberosities. Normal visualized femoral head. Normal acetabulum. Normal hip joint. RAD/HIP, UNI W/ Pelvis 2-3 Views IMPRESSION: Osteopenia with no abnormality of the pelvis or either hip. Electronically Signed: Abraham Espino MD at 10:21 EDT , Service support ,
== END ==
PROVIDERS: PCP Internal Medicine; Referring Provider Internal Medicine; Visit Provider Internal Medicine
DX: M25.551 Pain in right hip (principal)
CPT/HCPCS: 73502

== ENCOUNTER → 2020-12-26 09:03 | Outpatient (CLI) | payer OTHER, SELFPAY ==
[2020-11-29 08:21] VITALS: BMI 31.7
--- NOTE | 2020-12-26 09:15 | BD_ITS ---
STUDY: DUAL ENERGY X-RAY ABSORPTIOMETRY / DXA REASON FOR EXAM: Male, 65 years old. Osteopenia TECHNIQUE: Bone Mineral Density (BMD) measurements of lumbar spine and bilateral hips were obtained. COMPARISON: None. FINDINGS: Lumbar Spine (L1-L4): g/cm2 (1.015) / T-score (-0.3) / Z-score (0.4) Findings are suggestive of normal bone density with a low fracture risk. Left Femur Total: g/cm2 (0.769) / T-score (-1.7) / Z-score (-1.3) Left Femoral Neck: g/cm2 (0.722) / T-score (-1.5) / Z-score (-0.5) Right Femur Total: g/cm2 (0.889) / T-score (-1.0) / Z-score (-0.5) Right Femoral Neck: g/cm2 (0.893) / T-score (-0.3) / Z-score (0.7) BD/Dexa Bone Density Study IMPRESSION: The patient is considered osteopenic as outlined below according to World [place] Organization (WHO) criteria with a moderate fracture risk. Reference Information: The T-score is the number of standard deviations above or below the standard which is normal for young adults at their peak bone mineral density. The World Health Organization (WHO) interprets the T-scores as follows: Above -1 Normal bone density Between -1 and -2.5 Osteopenia Equal to / or below -2.5 Osteoporosis As a practical clinical guideline, osteopenia may be graded as follows: Mild -1 through -1.5 Moderate -1.6 through -2.0 Severe -2.1 through -2.4 The Z-score is the number of standard deviations above or below age-matched controls. A Z-score of less than -1.5 would be considered abnormal. References: 1. NIH Osteoporosis and Related Bone Diseases www osteo.org 2. International Society for Clinical Densitometry www iscd.org 3. National Osteoporosis Foundation www nof.org Electronically Signed: Amrit Weaver MD at 14:23 EDT , Service support ,
== END ==
PROVIDERS: PCP Internal Medicine; Referring Provider Internal Medicine; Visit Provider Internal Medicine
DX: M85.80 Other specified disorders of bone density and structure, unspecified site (principal)
CPT/HCPCS: 77080

== ENCOUNTER → 2021-10-14 | Outpatient (CLI) | payer OTHER, SELFPAY ==
[2021-10-14 12:20] LABS: Absolute Neutrophil Count 4.7 X10^3/uL (2.0-7.7); Basophil# 0.07 X10^3/uL; Eosinophil# 0.39 X10^3/uL; Eosinophils% 5.5 % (0-5); Hematocrit 46.9 % (40-54); Hemoglobin 15.3 g/dL (13.0-16.5); Lymphocyte % 19.6 % (19-41); Mean Corp Hgb Conc 32.6 g/dL (32-36); Mean Corpuscular Hgb 30.2 pg (27.0-32.0); Mean Corpuscular Volume 92.7 fL (80-94); Mean Platelet Vol. 10.7 fl (6.2-12.0); Monocyte# 0.57 X10^3/uL; NRBC Flagged by Analyzer 0 % (0-5); Neutrophil % 65.6 % (47-70); Platelet Count 255 K/mm3 (150-450); RBC Distribution Width CV 13.1 % (11.6-14.6); RBC Distribution Width SD 44.7 fl (35.1-43.9); Red Blood Count 5.06 M/mm3 (4.6-6.2); White Blood Count 7.2 K/mm3 (4.4-11.0)
[2021-10-14 12:41] LABS: AST(SGOT) 27 U/L (15-37); Alanine Aminotransfer ALT/SGPT 38 U/L (16-61); Albumin, Serum 3.5 g/dL (3.2-5.0); Alkaline Phosphatase 77 U/L (45-117); Anion Gap 5 (5-15); BUN 17 mg/dL (7-18); Chloride 105 mmol/L (98-107); Cholesterol 135 mg/dL (200); Creatinine, Serum 1.06 mg/dL (0.70-1.30); EST Glomerular Filtration Rate 75 mL/min (>60); Est Glom Filt Rate - Afr Amer 90 mL/min (>60); Globulin 3.5 g/dL (2.2-4.2); Glucose 129 mg/dL (74-106); High Density Lipoprotein 51 mg/dL; PSA,Total - Annual Screen 3.84 ng/mL (0.00-4.00); Potassium 4.2 mmol/L (3.5-5.1); Sodium Level 138 mmol/L (136-145); Triglycerides 102 mg/dL; Very Low Density Lipoprotein 20 mg/dL (5-40)
== END | disposition home or self-care (01) ==
LOC: BIMLAB 09:02
PROVIDERS: PCP Internal Medicine; Referring Provider Internal Medicine; Visit Provider Internal Medicine
DX: Z00.00 Encounter for general adult medical examination without abnormal findings (principal); Z12.5 Encounter for screening for malignant neoplasm of prostate
CPT/HCPCS: 36415; 80053; 80061; 84153; 85025; G0103

== ENCOUNTER → 2022-04-10 | Outpatient (CLI) | payer OTHER, SELFPAY ==
[2022-04-10 10:59] LABS: AST(SGOT) 39 U/L (15-37); Alanine Aminotransfer ALT/SGPT 51 U/L (16-61); Albumin, Serum 3.5 g/dL (3.2-5.0); Alkaline Phosphatase 75 U/L (45-117); Bilirubin, Direct 0.21 mg/dL (0.00-0.30); Cholesterol 143 mg/dL (200); Globulin 3.5 g/dL (2.2-4.2); High Density Lipoprotein 59 mg/dL; Triglycerides 109 mg/dL; Very Low Density Lipoprotein 22 mg/dL (5-40)
== END | disposition home or self-care (01) ==
PROVIDERS: PCP Internal Medicine; Referring Provider Internal Medicine Cardiovascular Disease; Visit Provider Internal Medicine Cardiovascular Disease
DX: E78.00 Pure hypercholesterolemia, unspecified (principal)
CPT/HCPCS: 36415; 80061; 80076

== ENCOUNTER → 2022-09-16 | Outpatient (CLI) | payer OTHER, SELFPAY ==
[2022-09-16 12:43] LABS: Absolute Lymphocyte Count 1.44 X10^3/uL (0.83-4.51); Absolute Neutrophil Count 4.7 X10^3/uL (2.0-7.7); Basophil# 0.06 X10^3/uL; Basophil% 0.8 % (0-1); Eosinophil# 0.36 X10^3/uL; Hematocrit 44.1 % (40-54); Lymphocyte # 1.44 X10^3/ul (0.83-4.51); Mean Corpuscular Hgb 31.4 pg (27.0-32.0); Mean Corpuscular Volume 92.3 fL (80-94); Mean Platelet Vol. 10.2 fl (6.2-12.0); Monocyte# 0.63 X10^3/uL; Monocyte% 8.8 % (0-10); NRBC Flagged by Analyzer 0 % (0-5); Neutrophil # 4.69 X10^3/uL (2.7-7.7); Neutrophil % 65.1 % (47-70); Platelet Count 262 K/mm3 (150-450); RBC Distribution Width CV 13.8 % (11.6-14.6); RBC Distribution Width SD 47.1 fl (35.1-43.9); Red Blood Count 4.78 M/mm3 (4.6-6.2); White Blood Count 7.2 K/mm3 (4.4-11.0)
[2022-09-16 13:49] LABS: ALB/GLOB Ratio 1.1 RATIO (0.9-2.4); AST(SGOT) 48 U/L (15-37); Alanine Aminotransfer ALT/SGPT 70 U/L (16-61); Albumin, Serum 3.7 g/dL (3.2-5.0); Alkaline Phosphatase 73 U/L (45-117); Anion Gap 5 (5-15); BUN 20 mg/dL (7-18); BUN/Creat Ratio 21.5 RATIO (10-20); Calcium,Total 8.8 mg/dL (8.5-10.1); Chloride 107 mmol/L (98-107); Cholesterol 146 mg/dL (200); Creatinine, Serum 0.93 mg/dL (0.70-1.30); EST Glomerular Filtration Rate 86 mL/min (>60); Est Glom Filt Rate - Afr Amer 104 mL/min (>60); Globulin 3.5 g/dL (2.2-4.2); Glucose 129 mg/dL (74-106); High Density Lipoprotein 52 mg/dL; Potassium 4.1 mmol/L (3.5-5.1); Protein, Total 7.2 g/dL (6.4-8.2); Sodium Level 137 mmol/L (136-145); Thyroid Stim Hormone (TSH) 3.04 uIU/mL (0.358-3.74); Triglycerides 130 mg/dL; Very Low Density Lipoprotein 26 mg/dL (5-40)
== END | disposition home or self-care (01) ==
LOC: BIMLAB 08:56
PROVIDERS: PCP Internal Medicine; Referring Provider Nurse Practitioner Family; Visit Provider Nurse Practitioner Family
DX: Z00.00 Encounter for general adult medical examination without abnormal findings (principal)
CPT/HCPCS: 36415; 80053; 80061; 84443; 85025

== ENCOUNTER → 2022-12-19 | Outpatient (CLI) | payer OTHER, SELFPAY ==
[2022-12-19 08:28] LABS: AST(SGOT) 28 U/L (15-37); Alanine Aminotransfer ALT/SGPT 47 U/L (16-61); Albumin, Serum 3.4 g/dL (3.2-5.0); Alkaline Phosphatase 76 U/L (45-117); Anion Gap 4 (5-15); BUN 20 mg/dL (7-18); BUN/Creat Ratio 20.6 RATIO (10-20); Calcium,Total 8.6 mg/dL (8.5-10.1); Chloride 107 mmol/L (98-107); Creatinine, Serum 0.97 mg/dL (0.70-1.30); EST Glomerular Filtration Rate 82 mL/min (>60); Est Glom Filt Rate - Afr Amer 100 mL/min (>60); Globulin 3.4 g/dL (2.2-4.2); Glucose 135 mg/dL (74-106); Protein, Total 6.8 g/dL (6.4-8.2); Sodium Level 138 mmol/L (136-145)
== END | disposition home or self-care (01) ==
LOC: LAB 07:17
PROVIDERS: PCP Internal Medicine; Referring Provider Nurse Practitioner Family; Visit Provider Nurse Practitioner Family
DX: R79.89 Other specified abnormal findings of blood chemistry (principal)
CPT/HCPCS: 36415; 80053

== ENCOUNTER → 2023-07-03 | Outpatient (CLI) | payer OTHER, SELFPAY ==
--- OUTSIDE RECORDS SUMMARY | 2023-07-03 08:43 | XMS RPT_ITS | CCD ---
Author Name Unknown Address [address] [place] [address] Organization [facility] Care Team Providers Care Mobile Battery Technician Name Role Phone DeFinis, Harumi Y Unavailable Unavailable DeFinis, Harumi Y Unavailable Unavailable DeFinis, Harumi Y Unavailable Unavailable ABE Carr Phyllis M Unavailable Unavailabl e DeFinis, Harumi Y Unavailable Unavailable DeFinis, Harumi Y Unavailable Unavailable Mary Jo Grace Unavailable Unavailable Clara FISH, Florence Oro Unavailable [phone] Mary Jo Grace Unavailable Unavailable DeFinis, Harumi Y Unavailable Unavailable DeFinis, Harumi Y Unavailable Unavailable Allergies Allergy Classification Reported Allergen(s) Allergy Type Date of Onset Reaction(s) Facility (11 sources) TETNUS drug allergy 09-18-2013 Nausea [facility] Work Phone: Medications Completed/Discontinued Medications Medication Drug Class(es) Dates Sig (Normalized) Sig (Original) aspirin (20 sources) Nonsteroidal Anti-inflammatory Drug Start: 09-15-2013 ADULT ASPIRIN EC LOW STRENGTH 81 MG [employer] [facility] [employer] ASPIRIN [phone] Dayan Parra RN Problems Active Problems Problem Classification Problem Date Documented Date Episodic/Chronic Acute myocardial infarction (20 sources) Myocardial infarction; Translations: [ST elevation (STEMI) myocardial infarction involving other coronary artery of anterior wall] Onset: 09-15-2013 03-19-2015 Chronic Coronary atherosclerosis and other heart disease (17 sources) Coronary arteriosclerosis in saxman artery; Translations: [Coronary arteriosclerosis] Onset: 03-19-2015 03-19-2015 Chronic Disorders of lipid metabolism (11 sources) Hyperlipidemia; Translations: [Hyperlipidemia, unspecified] Onset: 09-15-2013 09-15-2013 Chronic Essential hypertension (11 sources) Hypertensive disorder; Translations: [Essential (primary) hypertension] Onset: 09-15-2013 09-15-2013 Chronic Unclassified (18 sources) Long-term drug therapy; Translations: [Long-term (current) use of other medications] Onset: 10-04-2013 Resolved: 03-12-2015 10-04-2013 Past or Other Problems Problem Classification Problem Date Documented Da te Episodic/Chronic Coronary atherosclerosis and other heart disease (20 sources) Presence of coronary angioplasty implant and graft; Translations: [Coronary angioplasty status] Onset: 09-15-2013 03-19-2015 Episodic Other aftercare (15 sources) Long-term (current) use of other medications; Translations: [Other longterm (current) drug therapy] Onset: 10-04-2013 Resolved: 03-12-2015 10-04-2013 Episodic Other nutritional; endocrine; and metabolic disorders (11 sources) Body mass index (BMI) 27.0-27.9, adult; Translations: [Body mass index (BMI) 27.0-27.9, adult] Onset: 03-20-2014 03-20-2014 Episodic Results Test Name Value Interpretation Reference Range Facil ity Vital Signs Date Time Vital Sign Value Performing Clinician Delisa marroquin 03-22-2017 08:51-0400 BP Di[facility] 88 mm[Hg] [facility] 03-22-2017 08:51-0400 BP Systolic 130 mm[Hg] [facility] Work Phone: 03-22-2017 08:51-0400 Pulse (Heart Rate) 72 /min [facility] Work Phone: 03-22-2017 08:51-0400 Respiratory Rate 16 /min [facility] Work Phone: 03-08-2017 14:32-0400 BMI (Body Mass Index) 31.01 kg/m2 [facility] Work Phone: 03-08-2017 14:32-0400 BP Diastolic 100 mm[Hg] [facility] Work Phone: 03-08-2017 14:32-0400 BP Systolic 146 mm[Hg] Mary Joramu Grace [facility] Work Phone: 03-08-2017 14:32-0400 Height 170.18 cm [facility] Work Phone: 03-08-2017 14:32-0400 Pulse (Heart Rate) 80 /min [facility] Work Phone: 03-08-2017 14:32-0400 Respiratory Rate 18 /min [facility] Work Phone: 03-08-2017 14:32-0400 Weight 89.81 kg [facility] Work Phone: 09-21-2016 15:35-0400 BMI (Body Mass Index) 30.73 kg/m2 [facility] Work Phone: 09-21-2016 15:35-0400 BP Diastolic 70 mm[Hg] [facility] Work Phone: 09-21-2016 15:35-0400 BP Systolic 140 mm[Hg] [facility] Work Phone: 09-21-2016 15:35-0400 Height 170.18 cm [facility] Work Phone: 09-21-2016 15:35-0400 Pulse (Heart Rate) 84 /min [facility] Work Phone: 09-21-2016 15:35-0400 Respiratory Rate 20 /min [facility] Work Phone: 09-21-2016 15:35-0400 Weight 89 kg [facility] Work Phone: 03-17-2016 09:40-0400 BSA (Body Surface Area) 2 m2 [facility] Work Phone: 09-18-2013 11:10-0400 Heart rate 75 /min [facility] Work Phone: 09-18-2013 11:10-0400 Heart rate 348 ms Florence Elizabeth RN [facility] Work Phone: Procedures Date Procedure Procedure Detail Performing Clinician Start: 03-08-2017 End: 03-08-2017 HYUN Espinoza MD Work Phone: Start: 03-08-2017 End: 03-08-2017 Follow Up Appt 6 months Brian Espinoza MD Work Phone: Start: 03-08-2017 End: 03-08-2017 Follow Up BP Check Brian Espinoza MD Work Phone: Start: 12-21-2016 End: 12-21-2016 *Hepatic Function Panel Brian Espinoza MD Work Phone: Start: 12-21-2016 End: 12-21-2016 Lipid 1996 panel - Serum or Plasma Brian Espinoza MD Work Phone: Start: 12-21-2016 End: 12-21-2016 *Hepatic Function Panel Brian Espinoza MD Work Phone: Start: 12-21-2016 End: 12-21-2016 Lipid panel [AGGREGATE] Brian Espinoza MD Work Phone: Start: 09-21-2016 End: 09-21-2016 HYUN Espinoza MD Work Phone: Start: 09-21-2016 End: 09-21-2016 Follow Up Appt 6 months Brian Espinoza MD Work Phone: Start: 09-21-2016 End: 09-21-2016 HYUN Espinoza MD Work Phone: Start: 09-21-2016 End: 09-21-2016 Follow Up Appt 6 months Brian Espinoza MD Work Phone: Start: 09-04-2016 End: 09-04-2016 *CMP Complete Metabolic Panel Brian diana MD Work Phone: Start: 09-04-2016 End: 09-04-2016 Hemoglobin A1c/Hemoglobin.total in Blood Brian Espinoza MD Work Phone: Start: 09-04-2016 End: 09-04-2016 Lipid 1996 panel - Serum or Plasma Brian Espinoza MD Work Phone: Start: 09-04-2016 End: 09-04-2016 *CMP Complete Metabolic Panel Brian diana MD Work Phone: Start: 09-04-2016 End: 09-04-2016 HbA1c Brian Espinoza MD Work Phone: Start: 09-04-2016 End: 09-04-2016 Lipid panel [AGGREGATE] Brian Espinoza MD Work Phone: Start: 03-17-2016 End: 03-18-2016 *CMP Complete Metabolic Panel Brian diana MD Work Phone: Start: 03-17-2016 End: 03-17-2016 DJN Brian Espinoza MD Work Phone: Start: 03-17-2016 End: 03-17-2016 Follow Up Appt 6 months Brian Espinoza MD Work Phone: Start: 03-17-2016 End: 03-18-2016 Hemoglobin A1c/Hemoglobin.total in Blood Brian Espinoza MD Work Phone: Start: 03-17-2016 End: 03-18-2016 *CMP Complete Metabolic Panel Brian diana MD Work Phone: Start: 03-17-2016 End: 03-17-2016 DJN Brian Espinoza MD Work Phone: Start: 03-17-2016 End: 03-17-2016 Follow Up Appt 6 months Brian Espinoza MD Work Phone: Start: 03-17-2016 End: 03-18-2016 HbA1c Brian Espinoza MD Work Phone: Start: 03-02-2016 End: 03-12-2016 *Hepatic Function Panel Brian Espinzoa MD Work Phone: Start: 03-02-2016 End: 03-12-2016 Lipid 1996 panel - Serum or Plasma Brian Espinoza MD Work Phone: Start: 03-02-2016 End: 03-12-2016 *Hepatic Function Panel Brian Espinoza MD Work Phone: Start: 03-02-2016 End: 03-12-2016 HbA1c Brian Espinoza MD Work Phone: Start: 03-02-2016 End: 03-12-2016 Lipid panel [AGGREGATE] Brian Espinoza MD Work Phone: Start: 09-11-2015 End: 09-13-2015 *Hepatic Function Panel Brian Espinoza MD Work Phone: Start: 09-11-2015 End: 09-13-2015 Lipid 1996 panel - Serum or Plasma Brian Espinoza MD Work Phone: Start: 09-11-2015 End: 09-13-2015 *Hepatic Function Panel Brian Espinoza MD Work Phone: Start: 09-11-2015 End: 09-13-2015 Lipid panel [AGGREGATE] Brian Espinoza MD Work Phone: Start: 03-25-2015 End: 03-25-2015 DJN Brian Espinoza MD Work Phone: Start: 03-25-2015 End: 03-25-2015 Follow Up Appt 1 year Gasper Forrest Work Phone: Start: 03-25-2015 End: 03-25-2015 Dietary management education, guidance, and counseling Florence Elizabeth RN Start: 03-25-2015 End: 03-25-2015 HYUN Espinoza MD Work Phone: Start: 03-25-2015 End: 03-25-2015 Follow Up Appt 1 year Gasper Forrest Work Phone: Start: 03-12-2015 End: 03-12-2015 *Hepatic Function Panel Brian Espinoza MD Work Phone: Start: 03-12-2015 End: 03-12-2015 Lipid 1996 panel - Serum or Plasma Brian Espinoza MD Work Phone: Start: 03-12-2015 End: 03-12-2015 *Hepatic Function Panel Brian Espinoza MD Work Phone: Start: 03-12-2015 End: 03-12-2015 Lipid panel [AGGREGATE] Brian Espinoza MD Work Phone: Start: 09-18-2014 End: 09-24-2014 *Hepatic Function Panel Brian Espinoza MD Work Phone: Start: 09-18-2014 End: 09-24-2014 Lipid 1996 panel - Serum or Plasma Brian Espinoza MD Work Phone: Start: 09-18-2014 End: 09-24-2014 *Hepatic Function Panel Brian Espinoza MD Work Phone: Start: 09-18-2014 End: 09-24-2014 Lipid panel [AGGREGATE] Brian Espinoza MD Work Phone: Start: 03-20-2014 End: 03-20-2014 RONYN Brian Espinoza MD Work Phone: Start: 03-20-2014 End: 03-20-2014 Follow Up Appt 1 year Gasper Forrest Work Phone: Start: 03-20-2014 End: 03-20-2014 HYUN Espinoza MD Work Phone: Start: 03-20-2014 End: 03-20-2014 Follow Up Appt 1 year Gasper Forrest Work Phone: Start: 02-28-2014 End: 03-20-2014 *Hepatic Function Panel Brian Espinoza MD Work Phone: Start: 02-28-2014 End: 03-20-2014 Lipid 1996 panel - Serum or Plasma Brian Espinoza MD Work Phone: Start: 02-28-2014 End: 03-20-2014 *Hepatic Function Panel Brian Espinoza MD Work Phone: Start: 02-28-2014 End: 03-20-2014 Lipid panel [AGGREGATE] Brian Espinoza MD Work Phone: Start: 12-29-2013 End: 01-17-2014 Echocardiography Brian Espinoza MD Work Phone: Start: 12-29-2013 End: 01-17-2014 Echocardiography Brian Espinoza MD Work Phone: Start: 09-18-2013 End: 12-11-2013 Cardiac Rehab Brian Espinoza MD Work Phone: Start: 09-18-2013 End: 09-18-2013 RONYN Brian Espinoza MD Work Phone: Start: 09-18-2013 End: 03-20-2014 Echocardiography Brian Espinoza MD Work Phone: Start: 09-18-2013 End: 09-18-2013 Follow Up Appt 1 year Gasper Forrest Work Phone: Start: 09-18-2013 End: 03-20-2014 Lipid 1996 panel - Serum or Plasma Brian Espinoza MD Work Phone: Start: 09-18-2013 End: 12-11-2013 Cardiac Rehab Brian Espinoza MD Work Phone: Start: 09-18-2013 End: 09-18-2013 HYUN Espinoza MD Work Phone: Start: 09-18-2013 End: 03-20-2014 Echocardiography Brian Espinoza MD Work Phone: Start: 09-18-2013 End: 09-18-2013 Follow Up Appt 1 year Gasper Forrest Work Phone: Start: 09-18-2013 End: 03-20-2014 Lipid panel [AGGREGATE] Brian Espinoza MD Work Phone: Plan of Treatment Date Care Activity Detail Author Start: 10-04-2017 End: 10-04-2017 Appointment Appointment [facility] Work Phone: Start: 08-23-2017 End: 02-27-2017 *Hepatic Function Panel *Hepatic Function Panel [facility] Work Phone: Start: 08-23-2017 End: 02-27-2017 Lipid panel [AGGREGATE] *Lipid Profile CC PCP [facility] Work Phone: Start: 08-23-2017 End: 02-27-2017 *Hepatic Function Panel *Hepatic Function Panel [facility] Work Phone: Start: 08-23-2017 End: 02-27-2017 Lipid panel [AGGREGATE] *Lipid Profile CC PCP [facility] Work Phone: Start: 06-21-2017 End: 12-30-2016 *Hepatic Function Panel *Hepatic Function Panel [facility] Work Phone: Start: 06-21-2017 End: 12-30-2016 Lipid panel [AGGREGATE] *Lipid Profile CC PCP [facility] Work Phone: Start: 03-22-2017 End: 03-22-2017 Appointment Appointment [facility] Work Phone: Start: 03-08-2017 End: 03-08-2017 Appointment Appointment [facility] Work Phone: Start: 03-08-2017 End: 12-21-2016 *Hepatic Function Panel *Hepatic Function Panel [facility] Work Phone: Start: 03-08-2017 End: 03-08-2017 RONYN RONYN [facility] Work Phone: Start: 03-08-2017 End: 03-08-2017 Follow Up Appt 6 months Follow Up Appt 6 months [facility] Work Phone: Start: 03-08-2017 End: 03-08-2017 Follow Up BP Check Follow Up BP Check [facility] Work Phone: Start: 03-08-2017 End: 12-21-2016 Lipid panel [AGGREGATE] *Lipid Profile CC PCP [facility] Work Phone: Start: 03-08-2017 End: 12-21-2016 *Hepatic Function Panel *Hepatic Function Panel [facility] Work Phone: Start: 03-08-2017 End: 12-21-2016 Lipid panel [AGGREGATE] *Lipid Profile CC PCP [facility] Work Phone: Start: 09-21-2016 End: 09-21-2016 DJN DJN [facility] Work Phone: Start: 09-21-2016 End: 09-21-2016 Follow Up Appt 6 months Follow Up Appt 6 months [facility] Work Phone: Start: 09-21-2016 End: 09-21-2016 DJN DJN [facility] Work Phone: Start: 09-21-2016 End: 09-21-2016 Follow Up Appt 6 months Follow Up Appt 6 months [facility] Work Phone: Start: 09-07-2016 End: 09-04-2016 *CMP Complete Metabolic Panel *CMP Complete Metabolic Panel [facility] Work Phone: Start: 09-07-2016 End: 09-04-2016 Hemoglobin A1c/Hemoglobin.total mass fraction (Bld) *HgA1C [facility] Work Phone: Start: 09-07-2016 End: 09-04-2016 Lipid panel [AGGREGATE] *Lipid Profile CC PCP [facility] Work Phone: Start: 09-07-2016 End: 09-04-2016 *CMP Complete Metabolic Panel *CMP Complete Metabolic Panel [facility] Work Phone: Start: 09-07-2016 End: 09-04-2016 HbA1c *HgA1C [facility] Work Phone: Start: 09-07-2016 End: 09-04-2016 Lipid panel [AGGREGATE] *Lipid Profile CC PCP [facility] Work Phone: Start: 03-17-2016 End: 03-18-2016 *CMP Complete Metabolic Panel *CMP Complete Metabolic Panel [facility] Work Phone: Start: 03-17-2016 End: 03-17-2016 DJN DJN [facility] Work Phone: Start: 03-17-2016 End: 03-17-2016 Follow Up Appt 6 months Follow Up Appt 6 months [facility] Work Phone: Start: 03-17-2016 End: 03-18-2016 Hemoglobin A1c/Hemoglobin.total mass fraction (Bld) *HgA1C [facility] Work Phone: Start: 03-17-2016 End: 03-18-2016 *CMP Complete Metabolic Panel *CMP Complete Metabolic Panel [facility] Work Phone: Start: 03-17-2016 End: 03-17-2016 DJN DJN [facility] Work Phone: Start: 03-17-2016 End: 03-17-2016 Follow Up Appt 6 months Follow Up Appt 6 months [facility] Work Phone: Start: 03-17-2016 End: 03-18-2016 HbA1c *HgA1C [facility] Work Phone: Start: 03-02-2016 End: 03-12-2016 *Hepatic Function Panel *Hepatic Function Panel [facility] Work Phone: Start: 03-02-2016 End: 03-12-2016 Lipid panel [AGGREGATE] *Lipid Profile CC PCP [facility] Work Phone: Start: 03-02-2016 End: 03-12-2016 *Hepatic Function Panel *Hepatic Function Panel [facility] Work Phone: Start: 03-02-2016 End: 03-12-2016 Lipid panel [AGGREGATE] *Lipid Profile CC PCP [facility] Work Phone: Start: 09-11-2015 End: 09-13-2015 *Hepatic Function Panel *Hepatic Function Panel [facility] Work Phone: Start: 09-11-2015 End: 09-13-2015 Lipid panel [AGGREGATE] *Lipid Profile CC PCP [facility] Work Phone: Start: 09-11-2015 End: 09-13-2015 *Hepatic Function Panel *Hepatic Function Panel [facility] Work Phone: Start: 09-11-2015 End: 09-13-2015 Lipid panel [AGGREGATE] *Lipid Profile CC PCP [facility] Work Phone: Start: 03-26-2015 End: 03-12-2015 *Hepatic Function Panel *Hepatic Function Panel [facility] Work Phone: Start: 03-26-2015 End: 03-12-2015 Lipid panel [AGGREGATE] *Lipid Profile CC PCP [facility] Work Phone: Start: 03-26-2015 End: 03-12-2015 *Hepatic Function Panel *Hepatic Function Panel [facility] Work Phone: Start: 03-26-2015 End: 03-12-2015 Lipid panel [AGGREGATE] *Lipid Profile CC PCP [facility] Work Phone: Start: 03-25-2015 End: 03-25-2015 RONYN DJN [facility] Work Phone: Start: 03-25-2015 End: 03-25-2015 Follow Up Appt 1 year Follow Up Appt 1 year [facility] Work Phone: Start: 03-25-2015 End: 03-25-2015 DJN DJN [facility] Work Phone: Start: 03-25-2015 End: 03-25-2015 Follow Up Appt 1 year Follow Up Appt 1 year [facility] Work Phone: Start: 09-18-2014 End: 09-24-2014 *Hepatic Function Panel *Hepatic Function Panel [facility] Work Phone: Start: 09-18-2014 End: 09-24-2014 Lipid panel [AGGREGATE] *Lipid Profile CC PCP [facility] Work Phone: Start: 09-18-2014 End: 09-24-2014 *Hepatic Function Panel *Hepatic Function Panel [facility] Work Phone: Start: 09-18-2014 End: 09-24-2014 Lipid panel [AGGREGATE] *Lipid Profile CC PCP [facility] Work Phone: Start: 03-20-2014 End: 03-20-2014 RONYN DJN [facility] Work Phone: Start: 03-20-2014 End: 03-20-2014 Follow Up Appt 1 year Follow Up Appt 1 year [facility] Work Phone: Start: 03-20-2014 End: 03-20-2014 HYUN PURVIS [facility] Work Phone: Start: 03-20-2014 End: 03-20-2014 Follow Up Appt 1 year Follow Up Appt 1 year [facility] Work Phone: Start: 02-28-2014 End: 03-20-2014 *Hepatic Function Panel *Hepatic Function Panel [facility] Work Phone: Start: 02-28-2014 End: 03-20-2014 Lipid panel [AGGREGATE] *Lipid Profile CC PCP [facility] Work Phone: Start: 02-28-2014 End: 03-20-2014 *Hepatic Function Panel *Hepatic Function Panel [facility] Work Phone: Start: 02-28-2014 End: 03-20-2014 Lipid panel [AGGREGATE] *Lipid Profile CC PCP [facility] Work Phone: Start: 12-29-2013 End: 09-18-2013 Echocardiography Echocardiogram (complete) [facility] Work Phone: Start: 12-29-2013 End: 09-18-2013 Echocardiography Echocardiogram (complete) [facility] Work Phone: Start: 09-18-2013 End: 09-19-2013 *Hepatic Function Panel *Hepatic Function Panel [facility] Work Phone: Start: 09-18-2013 End: 09-18-2013 Cardiac Rehab Cardiac Rehab [facility] Work Phone: Start: 09-18-2013 End: 09-18-2013 HYUN PURVIS [facility] Work Phone: Start: 09-18-2013 End: 09-18-2013 Follow Up Appt 1 year Follow Up Appt 1 year [facility] Work Phone: Start: 09-18-2013 End: 09-19-2013 Lipid panel [AGGREGATE] *Lipid Profile CC PCP [facility] Work Phone: Start: 09-18-2013 End: 09-19-2013 *Hepatic Function Panel *Hepatic Function Panel [facility] Work Phone: Start: 09-18-2013 End: 09-18-2013 Cardiac Rehab Cardiac Rehab [facility] Work Phone: Start: 09-18-2013 End: 09-18-2013 DJN DJN [facility] Work Phone: Start: 09-18-2013 End: 09-18-2013 Follow Up Appt 1 year Follow Up Appt 1 year [facility] Work Phone: Start: 09-18-2013 End: 09-19-2013 Lipid panel [AGGREGATE] *Lipid Profile CC PCP [facility] Work Phone: [facility] Education [facility] Work Phone: Additional Source Comments FOR RECORDS PERTAINING TO PATIENTS WHO ARE OR HAVE BEEN ENROLLED IN A CHEMICAL DEPENDENCY/SUBSTANCEABUSE PROGRAM, SOME INFORMATION MAY BE OMITTED. This clinical summary was aggregated from multiple sources. Caution should be exercised in using it in the provision of clinical care. This summary normalizes information from multiple sources, and as a consequence, information in this document may materially change the coding, format and clinical context of patient data. In addition, data may be omitted in some cases. CLINICAL DECISIONS SHOULD BE BASED ON THE PRIMARY CLINICAL RECORDS. [facility]. provides no warranty or guarantee of the accuracy or completeness of information in this document.
[2023-07-03 09:18] LABS: Absolute Lymphocyte Count 1.43 X10^3/uL (0.83-4.51); Absolute Neutrophil Count 4.7 X10^3/uL (2.0-7.7); Basophil# 0.06 X10^3/uL; Basophil% 0.8 % (0-1); Eosinophil# 0.34 X10^3/uL; Eosinophils% 4.7 % (0-5); Hematocrit 46.6 % (40-54); Hemoglobin 15.4 g/dL (13.0-16.5); Lymphocyte # 1.43 X10^3/ul (0.83-4.51); Lymphocyte % 19.6 % (19-41); Mean Corpuscular Hgb 30.7 pg (27.0-32.0); Mean Platelet Vol. 9.7 fl (6.2-12.0); Monocyte% 9.6 % (0-10); NRBC Flagged by Analyzer 0 % (0-5); Neutrophil # 4.74 X10^3/uL (2.7-7.7); Platelet Count 248 K/mm3 (150-450); RBC Distribution Width CV 13.3 % (11.6-14.6); RBC Distribution Width SD 45.1 fl (35.1-43.9); Red Blood Count 5.01 M/mm3 (4.6-6.2); White Blood Count 7.3 K/mm3 (4.4-11.0)
[2023-07-03 10:07] LABS: AST(SGOT) 30 U/L (15-37); Alanine Aminotransfer ALT/SGPT 42 U/L (16-61); Albumin, Serum 3.5 g/dL (3.2-5.0); Alkaline Phosphatase 70 U/L (45-117); Anion Gap 5 (5-15); BUN 15 mg/dL (7-18); BUN/Creat Ratio 15.8 RATIO (10-20); Chloride 107 mmol/L (98-107); Cholesterol 134 mg/dL (200); Creatinine, Serum 0.95 mg/dL (0.70-1.30); EST Glomerular Filtration Rate 84 mL/min (>60); Est Glom Filt Rate - Afr Amer 102 mL/min (>60); Globulin 3.5 g/dL (2.2-4.2); Glucose 123 mg/dL (74-106); High Density Lipoprotein 57 mg/dL; PSA,Total - Annual Screen 3.57 ng/mL (0.00-4.00); Potassium 4.2 mmol/L (3.5-5.1); Sodium Level 139 mmol/L (136-145); Triglycerides 92 mg/dL; Very Low Density Lipoprotein 18 mg/dL (5-40)
[2023-07-03 11:11] LABS: Hemoglobin A1c 6.6 % (3.8-5.6)
== END | disposition home or self-care (01) ==
LOC: LAB 08:41
PROVIDERS: PCP Internal Medicine; Referring Provider Internal Medicine; Visit Provider Internal Medicine
DX: N40.0 Benign prostatic hyperplasia without lower urinary tract symptoms (principal); E11.9 Type 2 diabetes mellitus without complications; E78.5 Hyperlipidemia, unspecified
CPT/HCPCS: 36415; 80053; 80061; 83036; 84153; 85025; G0103

== ENCOUNTER → 2024-01-19 | Outpatient (CLI) | payer OTHER, SELFPAY ==
[2024-01-19 17:21] LABS: Anion Gap 5 (5-15); BUN 16 mg/dL (7-18); BUN/Creat Ratio 17.9 RATIO (10-20); Chloride 106 mmol/L (98-107); Creatinine, Serum 0.89 mg/dL (0.70-1.30); EST Glomerular Filtration Rate 90 mL/min (>60); Est Glom Filt Rate - Afr Amer 109 mL/min (>60); Glucose 134 mg/dL (74-106); Potassium 4.2 mmol/L (3.5-5.1); Sodium Level 139 mmol/L (136-145)
== END | disposition home or self-care (01) ==
LOC: BIMLAB 08:22
PROVIDERS: PCP Internal Medicine; Referring Provider Internal Medicine; Visit Provider Internal Medicine
DX: I10 Essential (primary) hypertension (principal)
CPT/HCPCS: 36415; 80048

== ENCOUNTER → 2024-04-10 | Outpatient (CLI) | payer OTHER, SELFPAY ==
[2024-04-10 10:32] LABS: Hemoglobin A1c 6.8 % (3.8-5.6)
== END | disposition home or self-care (01) ==
PROVIDERS: PCP Internal Medicine; Referring Provider Internal Medicine; Visit Provider Internal Medicine
DX: E11.9 Type 2 diabetes mellitus without complications (principal)
CPT/HCPCS: 36415; 83036

== ENCOUNTER → 2024-05-11 | Outpatient (CLI) | payer OTHER, SELFPAY ==
[2024-05-11 12:19] LABS: AST(SGOT) 32 U/L (15-37); Alanine Aminotransfer ALT/SGPT 44 U/L (16-61); Albumin, Serum 3.6 g/dL (3.2-5.0); Alkaline Phosphatase 73 U/L (45-117); Bilirubin, Direct 0.18 mg/dL (0.00-0.30); Cholesterol 140 mg/dL (200); Globulin 3.9 g/dL (2.2-4.2); High Density Lipoprotein 55 mg/dL; Protein, Total 7.5 g/dL (6.4-8.2); Triglycerides 105 mg/dL; Very Low Density Lipoprotein 21 mg/dL (5-40)
== END | disposition home or self-care (01) ==
LOC: MTLAB 09:31
PROVIDERS: PCP Internal Medicine; Referring Provider Internal Medicine Cardiovascular Disease; Visit Provider Internal Medicine Cardiovascular Disease
DX: E78.5 Hyperlipidemia, unspecified (principal)
CPT/HCPCS: 36415; 80061; 80076

== ENCOUNTER → 2024-05-25 | Outpatient (CLI) | payer OTHER, SELFPAY ==
--- NOTE | 2024-05-25 06:04 | ECHOCS_ITS ---
Version 2 Reason For Study: CAD Procedure This was a 2D Doppler, Color Flow transthoracic echocardiogram. The study was technically difficult. Exam performed in department. Left Ventricle Normal LV size. Left ventricular systolic function is normal. The left ventricular ejection fraction is 55 %. No regional wall motion abnormalities noted. Right Ventricle Normal RV size. Normal systolic function. Atria Normal left atrium. Normal right atrium. Mitral Valve Normal mitral valve. Tricuspid Valve Normal tricuspid valve. Aortic Valve Trisinus/trileaflet aortic valve. Pulmonic Valve Normal pulmonic valve. Great Vessels Normal aortic root. The pulmonary artery is normal size. Normal inferior vena cava. Pericardium/Pleural No pericardial effusion. Medication Diluted definity 1.5ml given slow IV push to enhance endocardial definition. MMode/2D Measurements & Calculations LVIDd: 3.6 cm IVSd: 0.98 cm Ao root diam: 3.2 cm LVIDs: 2.9 cm LVPWd: 1.1 cm RVDd: 3.4 cm FS: 19.0 % LAV(MOD-bp): 25.5 ml LVAd ap4: 27.1 cm2 LVAd ap2: 26.0 cm2 LAV(MOD-bp) Indexed: 12.0 ml/m2 LVLd ap4: 7.5 cm LVLd ap2: 7.9 cm LAV(MOD-sp2): 22.6 ml EDV(MOD-sp4): 78.5 ml EDV(MOD-sp2): 68.7 ml LAV(MOD-sp4): 27.1 ml EDV(sp4-el): 82.9 ml EDV(sp2-el): 72.4 ml LVAs ap4: 17.2 cm2 LVAs ap2: 18.0 cm2 LVLs ap4: 6.7 cm LVLs ap2: 6.9 cm ESV(MOD-sp4): 37.2 ml ESV(MOD-sp2): 38.9 ml ESV(sp4-el): 37.6 ml ESV(sp2-el): 39.9 ml EF(MOD-sp4): 52.6 % EF(MOD-sp2): 43.3 % EF(sp4-el): 54.7 % SV(MOD-sp4): 41.3 ml SV(MOD-sp2): 29.8 ml SV(sp4-el): 45.3 ml SI(MOD-sp4): 19.4 ml/m2 SI(MOD-sp2): 14.0 ml/m2 LA A4 area: 12.1 cm2 LA dimension(2D): 3.8 cm RA A4 area: 11.8 cm2 TAPSE: 1.6 cm Doppler Measurements & Calculations MV E max donavon: 95.4 cm/sec Lat Peak E' Donavon: 15.6 cm/sec Med Peak E' Donavon: 16.3 cm/sec E/E' lat: 6.1 E/E' med: 5.8 Ao V2 max: 97.1 cm/sec LV V1 max: 82.8 cm/sec PA V2 max: 128.1 cm/sec Ao max P.8 mmHg LV V1 max P.7 mmHg ECHO/Echo Complete W/ Contrast Interpretation Summary Normal LV size. Left ventricular systolic function is normal. The left ventricular ejection fraction is 55 %. Contrast injection was performed. Structurally normal valves. Ordering Physician: Percy Horen Referring Physician: Mena Ragland Performed By: Cindy Gotti RDCS
--- NOTE | 2024-05-25 09:35 | STRESSREP ---
Stress Test Report Exercise myocardial perfusion stress test. 68-year-old male with a history of coronary artery disease Stress protocol: Resting EKG demonstrates normal sinus rhythm with a rate of 67 bpm resting blood pressure is 138/80 mmHg. The patient exercised according to the regular Oli protocol for a total duration of 8 minutes attaining a maximum heart rate of 139 bpm which was 90 of maximum predicted heart rate; the maximum workload was 10.1 metabolic equivalents. At rest there were no ST or T wave changes noted to suggest ischemia and at peak exercise upsloping ST changes only were noted which did not meet the criteria for ischemia. No clinical angina was noted the test was terminated due to the target heart rate being achieved/fatigue. The peak blood pressure was 164/72 mmHg. Rate-pressure product was 20,500. Myocardial perfusion protocol. 13.9 mCi of technetium 99m sestamibi was injected at rest. The patient exercised according to regular Oli protocol for total duration of 8 minutes and at peak exercise 44.1 mCi of technetium 99m sestamibi was injected stress images were obtained stress and rest images were reconstructed in comparing the short axis vertical long and horizontal long axis. Gated images were also obtained. Perfusion SPECT analysis: Review of the stress images demonstrate normal uptake of tracer noted in all areas of the myocardium. The resting images similarly demonstrate normal uptake of tracer noted in all areas of the myocardium. No areas of reversibility are noted to suggest ischemia no previous infarct was noted. Gated SPECT analysis: The gated ejection fraction is 74%. Conclusion: Normal exercise myocardial perfusion stress test at a high workload Preserved ejection fraction.
== END | disposition home or self-care (01) ==
LOC: CVS 06:04
PROVIDERS: PCP Internal Medicine; Referring Provider Internal Medicine Cardiovascular Disease; Visit Provider Internal Medicine Cardiovascular Disease
DX: I25.10 Atherosclerotic heart disease of native coronary artery without angina pectoris (principal); Z95.5 Presence of coronary angioplasty implant and graft
CPT/HCPCS: 78452; 93017; 93306; A9500; Q9957; A4216; C8929

== ENCOUNTER → 2024-08-21 | Outpatient (CLI) | payer OTHER, SELFPAY ==
[2024-08-21 06:40] LABS: Absolute Lymphocyte Count 2.08 X10^3/uL (0.83-4.51); Basophil# 0.11 X10^3/uL; Basophil% 1.1 % (0-1); Eosinophil# 0.39 X10^3/uL; Eosinophils% 3.8 % (0-5); Hematocrit 42.9 % (40-54); Hemoglobin 14.8 g/dL (13.0-16.5); Lymphocyte # 2.08 X10^3/ul (0.83-4.51); Lymphocyte % 20.1 % (19-41); Mean Corp Hgb Conc 34.5 g/dL (32-36); Mean Corpuscular Hgb 31.5 pg (27.0-32.0); Mean Corpuscular Volume 91.3 fL (80-94); Mean Platelet Vol. 9.3 fl (6.2-12.0); Monocyte# 0.75 X10^3/uL; Monocyte% 7.3 % (0-10); NRBC Flagged by Analyzer 0 % (0-5); Neutrophil # 6.95 X10^3/uL (2.7-7.7); Neutrophil % 67.1 % (47-70); Platelet Count 310 K/mm3 (150-450); RBC Distribution Width CV 13.4 % (11.6-14.6); RBC Distribution Width SD 45.5 fl (35.1-43.9); White Blood Count 10.3 K/mm3 (4.4-11.0)
[2024-08-21 07:14] LABS: ALB/GLOB Ratio 1.2 RATIO (0.9-2.4); AST(SGOT) 32 U/L (<=37); Alanine Aminotransfer ALT/SGPT 30 U/L (<=46); Alkaline Phosphatase 68 U/L (40-129); Anion Gap 10 (5-15); BUN 16 mg/dL (4-19); BUN/Creat Ratio 17.1 RATIO (10-20); Calcium,Total 9.4 mg/dL (7.6-11.0); Carbon Dioxide 25.9 mmol/L (21.0-32.0); Chloride 102 mmol/L (98-108); Creatinine, Serum 0.95 mg/dL (0.70-1.20); EST Glomerular Filtration Rate 88 (>60); Globulin 3.2 g/dL (2.2-4.2); Glucose 132 mg/dL (70-99); PSA,Total - Annual Screen 4.26 ng/mL (0.02-4.00); Potassium 4.4 mmol/L (3.3-5.1); Protein, Total 7.2 g/dL (5.9-8.4); Sodium Level 138 mmol/L (133-145); Total Bilirubin 0.62 mg/dL (0.00-1.30)
[2024-08-21 08:16] LABS: Cholesterol 135 mg/dL (<=200); High Density Lipoprotein 51 mg/dL; Low Density Lipoprotein Calc. 67 mg/dL; Triglycerides 85 mg/dL; Very Low Density Lipoprotein 17 mg/dL (5-40); cholesterol:hdl ratio screen 2.65
[2024-08-22 15:29] LABS: Hemoglobin A1c 7.1 % (<=5.6)
== END | disposition home or self-care (01) ==
PROVIDERS: PCP Internal Medicine; Referring Provider Internal Medicine; Visit Provider Internal Medicine
DX: Z00.00 Encounter for general adult medical examination without abnormal findings (principal); E11.9 Type 2 diabetes mellitus without complications; Z12.5 Encounter for screening for malignant neoplasm of prostate
CPT/HCPCS: 36415; 80053; 80061; 83036; 84153; 85025; G0103

== ENCOUNTER → 2024-12-08 | Outpatient (CLI) | payer OTHER, SELFPAY ==
--- OUTSIDE RECORDS SUMMARY | 2024-12-08 07:25 | XMS RPT_ITS | CCD ---
Author Organization [facility] Care Team Providers Care Graduate Student Instructor Name Role Phone DeFinis, Harumi Y Unavailable Unavailable DeFinis, Harumi Y Unavailable Unavailable DeFinis, Harumi Y Unavailable Unavailable ABE Carr, Kimberly Jackman Unavailable Unavailabl e DeFinis, Harumi Y Unavailable Unavailable DeFinis, Harumi Y Unavailable Unavailable Mary Jo Grace Unavailable Unavailable Clara FISH, Florence Oro Unavailable Mary Jo Grace Unavailable Unavailable DeFinis, Harumi Y Unavailable Unavailable DeFinis, Harumi Y Unavailable Unavailable Dr. Mena Ragland Primary Care Provider [phone] Dr. Mena Ragland Attending Provider [phone] Dr. Mena Ragland Referring Provider [phone] Dr. Mena Ragland Primary Care Provider [phone] Dr. Mena Ragland Referring Provider [phone] Toya PRODUCTION DESIGNER, PRODUCTION DESIGNER-C Eliot Attending Provider [phone] Omayra PRODUCTION DESIGNER, PRODUCTION DESIGNER-C Zbigniew Newberry Attending Provider [phone] Dr. Mena Ragland Primary Care Provider [phone] Dr. Mena Ragland Attending Provider [phone] Dr. Mena Ragland Referring Provider [phone] Dr. Mena Ragland MD Primary Care Provider Dr. Mena Ragland MD Referring Provider [phone] Coleen SCHROEDER, Dr. Greer Attending Provider [phone] Coleen SCHROEDER, Dr. Greer Referring Provider Navin Marcano Attending Provider [phone] Obie SCHROEDER, Dr. San Attending Provider Oleghe, Efewongbe Primary Care Unavailable Oleghe, Efewongbe Attending Unavailable Oleghe, Efewongbe Referring Unavailable Oleghe, Efewongbe Primary Care Unavailable Oleghe, Efewongbe Attending Unavailable Oleghe, Efewongbe Referring Unavailable Oleghe, Efewongbe Primary Care Unavailable Oleghe, Efewongbe Attending Unavailable Oleghe, Efewongbe Referring Unavailable Oleghe, Efewongbe Primary Care Unavailable Oleghe, Efewongbe Attending Unavailable Oleghe, Efewongbe Referring Unavailable Oleghe, Efewongbe Primary Care Unavailable Navin Marcano Attending Unavailable Oleghe, Efewongbe Referring Unavailable Oleghe, Efewongbe Primary Care Unavailable Coleen, Delbarton Attending Unavailable Oleghe, Efewongbe Primary Care Unavailable Oleghe, Efewongbe Attending Unavailable Oleghe, Efewongbe Referring Unavailable Coleen, Delbarton Attending Unavailable Oleghe, Efewongbe Primary Care Unavailable Oleghe, Efewongbe Referring Unavailable Coleen, Percy Attending Unavailable Coleen, Percy Referring Unavailable Oleghe, Efewongbe Primary Care Unavailable Coleen, Delbarton Attending Unavailable Coleen, Percy Referring Unavailable Oleghe, Efewongbe Primary Care Unavailable Allergies Allergy Classification Reported Allergen(s) Allergy Type Date of Onset Reaction(s) Facility (11 sources) TETNUS drug allergy 09-18-2013 Nausea [facility] Work Phone: (4 sources) Tetanus Vaccines and Toxoid Allergy to substance 09-16-2022 Unknown [facility] (1 source) Tetanus Vaccines and Toxoid Drug allergy (disorder) 08-30-2024 [facility] Repository Medications Current Medications Medication Drug Class(es) Dates Sig (Normalized) Sig (Original) aspirin 81 mg delayed release oral tablet (20 sources) Nonsteroidal Anti-inflammatory Drug Start: 09-15-2013 ADULT ASPIRIN EC LOW STRENGTH 81 MG TBEC ASPIRIN [id number] Dayan Parra RN Start: 09-15-2013 End: 06-09-2024 take 1 tablet by mouth once daily Aspirin 81 mg tablet,delayed release (DR/EC) Active 81 mg PO DAILY June 09, 2024 5:09pm Start: 09-15-2013 take 1 tablet by tito th once daily ASPIRIN 81 MG TABS One tablet by mouth daily ASPIRIN [id number] Florence Rosado PA-C Start: 09-15-2013 take 1 tablet by tito th once daily ADULT ASPIRIN EC LOW STRENGTH 81 MG TBEC One tablet by mouth daily ASPIRIN [id number] Dayan Parra RN atorvastatin 80 mg oral tablet (20 sources) HMG-CoA Reductase Inhibitor Start: 09-09-2017 End: 06-09-2024 take 1 tablet by mouth once daily Atorvastatin 80 mg tablet Active 80 mg PO DAILY June 09, 2024 5:09pm Start: 03-14-2014 End: 09-09-2017 take 1 tablet by mouth at bedtime Atorvastatin 40 MG tablet Discontinued 40 mg PO AT BEDTIME March 14, 2014 12:00am September 09, 2017 10:42am Start: 09-15-2013 take 1 tablet by tito th once daily ATORVASTATIN CALCIUM 80 MG TABS One tablet by mouth daily ATORVASTATIN CALCIUM [id number] Kimberly Carr RN carvedilol 12.5 mg oral tablet (20 sources) alpha-Adrenergic Francisco, beta-Adrenergic Francisco Start: 10-01-2017 End: 06-09-2024 take 1 tablet by mouth twice daily Carvedilol 12.5 mg tablet Active 12.5 mg PO TWICE A DAY June 09, 2024 5:09pm Start: 03-14-2014 End: 10-01-2017 take 1 tablet by mouth once daily Carvedilol 12.5 MG tablet Discontinued 12.5 mg PO DAILY March 14, 2014 12:00am October 01, 2017 10:43am Start: 09-15-2013 take 1 tablet by tito th twice daily COREG 12.5 MG TABS One tablet by mouth twice daily CARVEDILOL [id number] Kimberly Carr RN hydroCHLOROthiazide 12.5 mg / lisinopril 20 mg oral tablet (20 sources) Thiazide Diuretic, Angiotensin Converting Enzyme Inhibitor Start: 12-29-2018 End: 06-09-2024 Lisinopril-Hydrochlorothiazi de 20-12.5 mg tablet Active 2 {tbl} PO DAILY 180 June 09, 2024 5:09pm Start: 12-29-2018 End: 03-09-2023 take 2 tablets by mouth once daily Lisinopril-Hydrochlorothiazide Active 2 TABLET PO DAILY March 09, 2023 8:12am ketorolac tromethamine 5 mg/ml ophthalmic solution (1 source) Nonsteroidal Anti-inflammatory Drug, Cyclooxygenase Inhibitor Start: 08-10-2024 Ketorolac 0.5 % drops Active NMA OPHTHALMIC August 10, 2024 12:00am nitroglycerin 0.4 mg sublingual tablet (20 sources) Nitrate Vasodilator Start: 10-01-2017 End: 05-09-2024 Nitroglycerin 0.4 mg tablet, sublingual Active 0.4 mg SL every 5 to 15 minutes as needed for chest pain May 09, 2024 10:14am Start: 10-01-2017 End: 03-09-2023 Nitroglycerin Active 0.4 MG SL every 5 to 15 minutes March 09, 2023 8:10am Start: 09-15-2013 NITROSTAT 0.4 MG SUBL 1 tablet under tongue every 5 min up to 3 X NITROGLYCERIN [id number] Florence Rosado PA-C ofloxacin 3 mg/ml ophthalmic solution (1 source) Quinolone Antimicrobial Start: 08-10-2024 take 0.3 drop(s) into the eye(s) every six hours Ofloxacin 0.3 % drops Active 2 NMA OPHTHALMIC EVERY 6 HOURS August 10, 2024 12:00am Completed/Discontinued Medications Medication Drug Class(es) Dates Sig (Normalized) Sig (Original) besifloxacin 6 mg/ml ophthalmic suspension (3 sources) Quinolone Antimicrobial Start: 11-22-2022 End: 11-29-2022 Besifloxacin (Besivance) 0.6 % drops,suspension Discontinued 1 NMA OPHTHALMIC THREE TIMES A DAY 5 7 November 22, 2022 12:00am November 28, 2022 12:00am November 29, 2022 12:04am administer doses at least 4 hours apart lisinopril 20 mg oral tablet (20 sources) Angiotensin Converting Enzyme Inhibitor Start: 10-04-2017 End: 12-29-2018 take 1 tablet by mouth twice daily Lisinopril 20 mg tablet Discontinued 20 mg PO TWICE A DAY 180 October 03, 2018 11:23am December 29, 2018 9:02am Start: 10-01-2017 End: 10-04-2017 take 1 tablet by mouth twice daily Lisinopril 10 mg tablet Discontinued 10 mg PO TWICE A DAY 180 October 04, 2017 8:30am October 04, 2017 8:57am Start: 09-15-2013 take 1 tablet by tito th once daily LISINOPRIL 20 MG TABS One tablet by mouth daily LISINOPRIL [id number] Brian Espinoza MD Start: 09-15-2013 take 1 tablet by tito th twice daily LISINOPRIL 10 MG TABS One tablet by mouth twice daily LISINOPRIL [id number] Geetha Bowers Start: 09-15-2013 take 1 tablet by tito th once daily LISINOPRIL 5 MG TABS One tablet by mouth daily LISINOPRIL [id number] Kimberly Carr RN Start: 09-15-2013 take 1 tablet by tito th once daily LISINOPRIL 10 MG TABS One tablet by mouth daily LISINOPRIL [id number] Brian Espinoza MD Start: 08-20-2013 End: 10-01-2017 take 2 tablets by mouth once daily Lisinopril 5 MG tablet Discontinued 10 mg PO DAILY August 20, 2013 12:00am October 01, 2017 10:42am Start: 08-20-2013 End: 10-01-2017 take 10 mg by mouth once daily Lisinopril Discontinued 10 MG PO DAILY August 19, 2013 11:00pm October 01, 2017 9:42am magnesium chloride 535 mg delayed release oral tablet (20 sources) Start: 09-15-2013 End: 10-01-2017 take 1 tablet by mouth once daily Magnesium Chloride 71.5 MG tablet,delayed release (DR/EC) Discontinued 71.5 mg PO DAILY March 14, 2014 12:00am October 01, 2017 10:43am Start: 09-15-2013 take 1 tablet by tito th once daily MAG-SR CR-TABS One tablet by mouth daily MAGNESIUM CHLORIDE CR-TABS [id number] Kimberly Carr RN Start: 09-15-2013 take 1 tablet by tito th once daily MAG-SR CR-TABS One tablet by mouth daily MAGNESIUM CHLORIDE CR-TABS [id number] Kimberly Carr RN MAGNESIUM CHLORIDE CR-TABS (2 sources) Start: 09-15-2013 take 1 tablet by mouth once daily MAG-SR CR-TABS One tablet by mouth daily MAGNESIUM CHLORIDE CR-TABS [id number] Kimberly Carr RN MAGNESIUM CHLORIDE-CALCIUM (10 sources) Start: 09-15-2013 End: 03-20-2014 take 1 tablet by mouth once daily SLOW MAGNESIUM/CALCIUM 64-106 MG TBEC One tablet by mouth daily MAGNESIUM CHLORIDE-CALCIUM [id number] Sita Pal RN Start: 09-15-2013 take 1 tablet by tito th once daily SLOW MAGNESIUM/CALCIUM 64-106 MG TBEC One tablet by mouth daily MAGNESIUM CHLORIDE-CALCIUM [id number] Brian Espinoza MD MAGNESIUM CHLORIDE-CALCIUM (4 sources) Start: 09-15-2013 take 1 tablet by mouth once daily SLOW MAGNESIUM/CALCIUM 64-106 MG TBEC One tablet by mouth daily MAGNESIUM CHLORIDE-CALCIUM [id number] Brian Espinoza MD Start: 09-15-2013 End: 03-20-2014 take 1 tablet by mouth once daily SLOW MAGNESIUM/CALCIUM 64-106 MG TBEC One tablet by mouth daily MAGNESIUM CHLORIDE-CALCIUM [id number] Sita Pal RN metFORMIN hydrochloride 500 mg oral tablet (20 sources) Biguanide Start: 09-15-2013 End: 03-20-2014 take 1 tablet by mouth once daily METFORMIN HCL 500 MG TABS One tablet by mouth daily METFORMIN HCL [id number] Brian Espinoza MD ticagrelor 90 mg oral tablet (20 sources) Start: 09-15-2013 End: 03-17-2016 take 1 tablet by mouth twice daily BRILINTA 90 MG TABS One tablet by mouth twice daily TICAGRELOR [id number] Brian Espinoza MD Problems Active Problems Problem Classification Problem Date Documented Date Episodic/Chronic Acute myocardial infarction (20 sources) Myocardial infarction; Translations: [ST elevation (STEMI) myocardial infarction involving other coronary artery of anterior wall] Onset: 09-15-2013 03-19-2015 Chronic Cardiac dysrhythmias (5 sources) Nonsustained ventricular tachycardia ; Translations: [Ventricular tachycardia] 02-28-2021 Chronic Comment on above: Post PCI-LAD Coronary atherosclerosis and other heart disease (20 sources) Coronary arteriosclerosis in [place] artery; Translations: [Coronary arteriosclerosis] Onset: 08-20-2013 03-19-2015 Chronic Diabetes mellitus without complication (7 sources) Type 2 diabetes mellitus; Translations: [Type 2 diabetes mellitus without complications] Onset: 08-30-2024 05-28-2021 Chronic Disorders of lipid metabolism (19 sources) Hyperlipidemia; Translations: [Hyperlipidemia, unspecified] Onset: 09-15-2013 09-15-2013 Chronic Essential hypertension (19 sources) Hypertensive disorder; Translations: [Essential hypertension] Onset: 09-15-2013 09-15-2013 Chronic Hyperplasia of prostate (3 sources) Benign prostatic hyperplasia; Translations: [Benign prostatic hyperplasia without lower urinary tract symptoms] Onset: 08-30-2024 06-23-2023 Chronic Immunizations and screening for infectious disease (2 sources) Contact with and (suspected) exposure to other viral communicable diseases; Translations: [Contact with or suspected exposure to other viral communicable disease] 08-10-2024 Episodic Other bone disease and musculoskeletal deformities (5 sources) Osteopenia; Translations: [Other specified disorders of bone density and structure, unspecified site] 12-04-2020 Episodic Other circulatory disease (1 source) Elevated blood-pressure reading without diagnosis of hypertension; Translations: [Elevated blood-pressure reading, without diagnosis of hypertension] Episodic Other ear and sense organ disorders (3 sources) Impacted cerumen; Translations: [Impacted cerumen, unspecified ear] 11-22-2022 Episodic Other ear and sense organ disorders (1 source) Impacted cerumen, unspecified ear; Translations: [Impacted cerumen] 11-22-2022 Episodic Other non-traumatic joint disorders (5 sources) Pain in right knee; Translations: [Right knee pain] 03-04-2022 Episodic Other non-traumatic joint disorders (5 sources) Hip pain; Translations: [Pain in right hip] 03-04-2022 Episodic Other nutritional; endocrine; and metabolic disorders (5 sources) Obesity; Translations: [Obesity, unspecified] 10-04-2017 Chronic Other screening for suspected conditions (not mental disorders or infectious disease) (4 sources) Other specified abnormal findings of blood chemistry; Translations: [Elevated liver function tests] 10-20-2022 Episodic Other upper respiratory infections (3 sources) Acute upper respiratory infection; Translations: [Acute upper respiratory infection, unspecified] Onset: 08-10-2024 08-10-2024 Episodic Residual codes; unclassified (5 sources) At risk for injury; Translations: [Other specified personal risk factors, not elsewhere classified] 03-04-2022 Episodic Superficial injury; contusion (4 sources) Corneal abrasion; Translations: [Injury of conjunctiva and corneal abrasion without foreign body, unspecified eye, initial encounter] 11-22-2022 Episodic Unclassified (18 sources) Long-term drug therapy; Translations: [...] (current) use of other medications; Translations: [Other long term care administrator (current) drug therapy] Onset: 10-04-2013 Resolved: 03-12-2015 10-04-2013 Episodic Other nutritional; endocrine; and metabolic disorders (11 sources) Body mass index (BMI) 27.0-27.9, adult; Translations: [Body mass index (BMI) 27.0-27.9, adult] Onset: 03-20-2014 03-20-2014 Episodic Results Test Name Value Interpretation Reference Range Facility Internal Medicine Office Vis tasia 08-30-2024 Internal Medicine Office Visit [facility] [address] [place] [address] A [place], [place] [address] OFFICE VISIT Date of Service: 08/30/24 MR#: [id number] Acct: [id number] Name: MIGEL CURRY Rep #: [id number] : 1955 Provider: Dr. 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 Accompanied by: Self Is patient in pain?: No Allergies Tetanus Vaccines and Toxoid (Tetanus Vaccines Toxoid) Allergy (Verified 08/30/24 14:43) Unknown Medications ???Medication ???Instructions ???Recorded ???Confirmed ???Type nitroglycerin 0.4 mg sublingual 0.4 mg sublingual Q5-15M PRN chest 05/09/24 08/30/24 Rx tablet pain #25 tabs aspirin 81 mg tablet,delayed 81 mg PO DAILY #90 TABLETS 5 08/30/24 Rx release carvedilol 12.5 mg tablet 12.5 mg PO BID #180 TABLETS 08/30/24 Rx lisinopril 20 2 tab PO DAILY #180 TABLETS 08/30/24 Rx mg-hydrochlorothia zide 12.5 mg tablet ketorolac 0.5 % eye drops drp ophthalmic (eye) 08/10/24 04/0 07/25 History ofloxacin 0.3 % eye drops 2 drp ophthalmic (eye) Q6H 5 08/30/24 History atorvastatin 80 mg tablet 80 mg PO DAILY #90 TABLETS 5 08/30/24 Rx metformin 500 mg tablet,extended 500 mg PO BID #60 tabs 08/30/24 Rx release 24 hr Have you fallen in the past year?: No Nurse's Note: refill needed atorvastatin 80mg PFSH Medical History Screening for prostate cancer Health care maintenance BPH (benign prostatic hyperplasia) Elevated LFTs Encounter for preventive health examination Preventative health care Right knee pain Essential hypertension 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) High risk for hip fracture Osteopenia Type 2 diabetes mellitus Right hip pain History of COVID-19 Obesity Nonsustained ventricular tachycardia Hyperlipidemia Atherosclerotic heart disease of [place] coronary artery without angina pectoris Surgical History History of eye surgery History of coronary artery stent placement (09/06/13) History of vasectomy History of tonsillectomy Family History Father CAD (coronary artery disease) Myocardial infarction Other CVA (cerebral vascular accident) Cancer Diabetes Hypertension Social History housing: house Smoking Status: Never smoker alcohol intake: never substance use type: does not use caffeine: Yes Type: coffee what type of physical activity do you participate in: none seatbelt use: always HPI HPI Chief Complaint: physical Details: MIGEL CURRY, is a 68 M who presents to the office today for follow-up/work physical. No acute concerns at this time. A1c is high, up from 6.7- 7.1. Had not been open to medication but is now open to considering/starti ng. He states that he stays active but does not routinely exercise. Blood pressure is stable. Blood pressure today at 122/78 mmHg. Taking his medications consistently. Also on aspirin due to history of CAD. No chest pain, palpitation or shortness of breath. Not open to colon cancer screening. Recent PSA very slightly elevated at 4.26. No significant urinary concerns reported. ROS Const Constitutional: No body ache, excessive sweating, fatigue, fever(s), frequent falls, headache(s), snoring, weakness, weight change, sleep problems or change in appetite Eyes Eyes: No blurry vision, change in vision, floaters, visual disturbances, eye pain or Light sensitivity ENT ENT: No abnormal hearing, ear or mastoid pain, tinnitus, balance problems, nosebleed/epistaxi s, nasal congestion, headache(s), neck pain or sore throat Resp Respiratory: No cough, excessive phlegm production, pain on inspiration, shortness of breath, snoring or wheezing Cardio Cardiology: No chest pain at rest, chest pain with exertion, excessive sweating, shortness of breath, dyspnea on exertion, lightheadedness, orthopnea or palpitations Gastro GI: No abdominal pain, change in bowel habits, constipation, cramping, diarrhea, nausea/dyspepsia or vomiting Genitourinary Male: No burning urination, painful urination, urinary incontinence, urinary frequenc (more content not included)... Normal [facility] Hemoglobin A1con 08-22-2024 HbA1c (Bld) [Mass fraction] 7.1 % Normal <=5.6 [facility] Comment on above: Performed By: #### L 501.9985 #### [facility] [address] [place], [address] Absolute neutrophil countOrd ered By: Mena Ragland on 08-21-2024 Neutrophils (Bld) [#/Vol] 7.0 10*3/uL 2.0-7.7 [facility] Anion gap in Serum or Plasma Ordered By: Mena Ragland on 08-21-2024 Anion gap [Moles/Vol] 10 mmol/L 5-15 [facility] BUN/creatinine ratioOrdered By: Mena Ragland on 08-21-2024 Urea nitrogen/Creatinine [Mass ratio] 17.1 mg/mg 10-20 [facility] Basophil percentageOrdered B y: Mena Ragland on 08-21-2024 Basophils/100 WBC (Bld) 1.1 % High 0-1 [facility] Bilirubin, totalOrdered By: Mena Ragland on 08-21-2024 Bilirubin [Mass/Vol] 0.62 mg/dL 0.00-1.30 [facility] CBC W/Diff, Automatedon 07-30 Absolute Lymph 2.08 X10 3/uL Normal 0.83-4.51 [facility] Comment on above: Performed By: #### L 500.4100, L100.0100, L500.4050, L501.9910 #### [facility] [address] [place], [address] Absolute Neut 7.0 X10 3/uL Normal 2.0-7.7 [facility] Comment on above: Performed By: #### L 500.4100, L100.0100, L500.4050, L501.9910 #### [facility] [address] [place], [address] Basophils/100 WBC (Bld) 1.1 % High 0-1 [facility] Comment on above: Performed By: #### L 500.4100, L100.0100, L500.4050, L501.9910 #### [facility] [address] [place], [address] Eosinophils/100 WBC (Bld) 3.8 % Normal 0-5 [facility] Comment on above: Performed By: #### L 500.4100, L100.0100, L500.4050, L501.9910 #### [facility] [address] [place], [address] Erythrocyte distribution width (RBC) [Ratio] 13.4 % Normal 11.6-14.6 [facility] Comment on above: Performed By: #### L 500.4100, L100.0100, L500.4050, L501.9910 #### [facility] [address] [place], [address] Hematocrit (Bld) [Volume fraction] 42.9 % Normal 40-54 [facility] Comment on above: Performed By: #### L 500.4100, L100.0100, L500.4050, L501.9910 #### [facility] [address] [place], [address] Hemoglobin (Bld) [Mass/Vol] 14.8 g/dL Normal 13.0-16.5 [facility] Comment on above: Performed By: #### L 500.4100, L100.0100, L500.4050, L501.9910 #### [facility] [address] [place], [address] IG% 0.600 Normal 0.0-0.9 [facility] Comment on above: Result Comment: IG% - Immature Granulocytes (promyelocytes, myelocytes and metamyelocytes) > 1% indicates that a LEFT SHIFT is Present. Performed By: #### L 500.4100, L100.0100, L500.4050, L501.9910 #### [facility] [address] [place], [address] Lymphocytes/100 WBC (Bld) 20.1 % Normal 19-41 [facility] Comment on above: Performed By: #### L 500.4100, L100.0100, L500.4050, L501.9910 #### [facility] [address] [place], [address] MCH (RBC) [Entitic mass] 31.5 pg Normal 27.0-32.0 [facility] Comment on above: Performed By: #### L 500.4100, L100.0100, L500.4050, L501.9910 #### [facility] [address] [place], [address] MCHC (RBC) [Mass/Vol] 34.5 g/dL Normal 32-36 [facility] Comment on above: Performed By: #### L 500.4100, L100.0100, L500.4050, L501.9910 #### [facility] [address] [place], [address] MCV (RBC) [Entitic vol] 91.3 fL Normal 80-94 [facility] Comment on above: Performed By: #### L 500.4100, L100.0100, L500.4050, L501.9910 #### [facility] [address] [place], [address] Monocytes/100 WBC (Bld) 7.3 % Normal 0-10 [facility] Comment on above: Performed By: #### L 500.4100, L100.0100, L500.4050, [id number] #### [facility] [address] [place], [address] Neutrophils/100 WBC (Bld) 67.1 % Normal 47-70 [facility] Comment on above: Performed By: #### L 500.4100, L100.0100, L500.4050, [id number] #### [facility] [address] [place], [address] Nucleated RBC (Bld) [#/Vol] 0 10*3/uL Normal 0-5 [facility] Comment on above: Performed By: #### L 500.4100, L100.0100, L500.4050, L501.9910 #### [facility] [address] [place], [address] Platelet mean volume (Bld) [Entitic vol] 9.3 fL Normal 6.2-12.0 [facility] Comment on above: Performed By: #### L 500.4100, L100.0100, L500.4050, L501.9910 #### [facility] [address] [place], [address] Platelets (Bld) [#/Vol] 310 10*3/uL Normal 150-450 [facility] Comment on above: Performed By: #### L 500.4100, L100.0100, L500.4050, L501.9910 #### [facility] [address] [place], [address] RBC (Bld) [#/Vol] 4.70 10*6/uL Normal 4.6-6.2 [facility] Comment on above: Performed By: #### L 500.4100, L100.0100, L500.4050, L501.9910 #### [facility] [address] [place], [address] RDW SD 45.5 fl High 35.1-43.9 [facility] Comment on above: Performed By: #### L 500.4100, L100.0100, L500.4050, L501.9910 #### [facility] [address] [place], [address] WBC (Bld) [#/Vol] 10.3 10*3/uL Normal 4.4-11.0 [facility] Comment on above: Performed By: #### L 500.4100, L100.0100, L500.4050, L501.9910 #### [facility] [address] [place], [address] Calculated very low density lipoprotein (VLDL) cholesterol measurementOrdered By: Mena Ragland on 08-21-2024 VLDL Cholesterol 17 mg/dL 5-40 [facility] Carbon dioxide, total [Moles /volume] in Central venous bloodOrdered By: Mena Ragland on 08-21-2024 CO2 [Moles/Vol] 25.9 mmol/L 21.0-32.0 [facility] Chloride assayOrdered By: Mario Ragland on 08-21-2024 Chloride [Moles/Vol] 102 mmol/L 98-108 [facility] Comprehensive Metabolic Prof ilon 08-21-2024 Albumin [Mass/Vol] 4.0 g/dL Normal 3.4-4.8 [facility] Comment on above: Performed By: #### L 500.4100, L100.0100, L500.4050, L501.9910 #### [facility] [address] [place], [address] Albumin/Globulin [Mass ratio] 1.2 {ratio} Normal 0.9-2.4 [facility] Comment on above: Performed By: #### L 500.4100, L100.0100, L500.4050, L501.9910 #### [facility] [address] [place], [address] ALK PHOS 68 U/L Normal 40-129 [facility] Comment on above: Performed By: #### L 500.4100, L100.0100, L500.4050, L501.9910 #### [facility] [address] [place], [address] ALT [Catalytic activity/Vol] 30 U/L Normal <=46 [facility] Comment on above: Performed By: #### L 500.4100, L100.0100, L500.4050, L501.9910 #### [facility] [address] [place], [address] AST [Catalytic activity/Vol] 32 U/L Normal <=37 [facility] Comment on above: Performed By: #### L 500.4100, L100.0100, L500.4050, L501.9910 #### [facility] [address] [place], [address] Bilirubin [Mass/Vol] 0.62 mg/dL Normal 0.00-1.30 [facility] Comment on above: Performed By: #### L 500.4100, L100.0100, L500.4050, L501.9910 #### [facility] [address] [place], [address] BUN/CRE 17.1 RATIO Normal 10-20 [facility] Comment on above: Performed By: #### L 500.4100, L100.0100, L500.4050, L501.9910 #### [facility] [address] [place], [address] Calcium [Mass/Vol] 9.4 mg/dL Normal 7.6-11.0 [facility] Comment on above: Performed By: #### L 500.4100, L100.0100, L500.4050, L501.9910 #### [facility] [address] [place], [address] Chloride [Moles/Vol] 102 mmol/L Normal 98-108 [facility] Comment on above: Performed By: #### L 500.4100, L100.0100, L500.4050, L501.9910 #### [facility] [address] [place], [address] CO2 [Moles/Vol] 25.9 mmol/L Normal 21.0-32.0 [facility] Comment on above: Performed By: #### L 500.4100, L100.0100, L500.4050, L501.9910 #### [facility] [address] [place], [address] Creatinine [Mass/Vol] 0.95 mg/dL Normal 0.70-1.20 [facility] Comment on above: Performed By: #### L 500.4100, L100.0100, L500.4050, L501.9910 #### [facility] [address] [place], [address] GAP 10 Normal 5-15 [facility] Comment on above: Performed By: #### L 500.4100, L100.0100, L500.4050, L501.9910 #### [facility] [address] [place], [address] GFR/1.73 sq M.predicted among non-blacks MDRD (S/P/Bld) [Vol rate/Area] 88 mL/min/{1.73_m2} Normal >60 [facility] Comment on above: Result Comment: mL/m in/1.73m2 CKD-EPI Creatinine Equation (2020) Performed By: #### L 500.4100, L100.0100, L500.4050, L501.9910 #### [facility] [address] [place], [address] Globulin (S) [Mass/Vol] 3.2 g/dL Normal 2.2-4.2 [facility] Comment on above: Performed By: #### L 500.4100, L100.0100, L500.4050, L501.9910 #### [facility] [address] [place], [address] Glucose [Mass/Vol] 132 mg/dL High 70-99 [facility] Comment on above: Performed By: #### L 500.4100, L100.0100, L500.4050, L501.9910 #### [facility] [address] [place], [address] Potassium [Moles/Vol] 4.4 mmol/L Normal 3.3-5.1 [facility] Comment on above: Performed By: #### L 500.4100, L100.0100, L500.4050, L501.9910 #### [facility] [address] [place], [address] Sodium [Moles/Vol] 138 mmol/L Normal 133-145 [facility] Comment on above: Performed By: #### L 500.4100, L100.0100, L500.4050, L501.9910 #### [facility] [address] [place], [address] T PROT 7.2 g/dL Normal 5.9-8.4 [facility] Comment on above: Performed By: #### L 500.4100, L100.0100, L500.4050, L501.9910 #### [facility] [address] [place], [address] Urea nitrogen [Mass/Vol] 16 mg/dL Normal 4-19 [facility] Comment on above: Performed By: #### L 500.4100, L100.0100, L500.4050, L501.9910 #### [facility] [address] [place], [address] Eosinophil percentageOrdered By: bessie Ragland on 08-21-2024 Eosinophils/100 WBC (Bld) 3.8 % 0-5 [facility] Erythrocyte distribution wid th ratioOrdered By: [facility] Ricajuan Ragland on 08-21-2024 Erythrocyte distribution width (RBC) [Ratio] 13.4 % 11.6-14.6 [facility] Erythrocyte distribution wid th standard deviationOrdered By: kyrieel pasojuan Ragland on 08-21-2024 Erythrocyte distribution width (RBC) [Entitic vol] 45.5 fL High 35.1-43.9 [facility] GFR/1.[address] g non-blacks MDRD (S/P/Bld) [Vol rate/Area]Ordered By: Mena Ragland on 08-21-2024 Estimated GFR (MDRD) Non-Af Amer 88 >60 [facility] Comment on above: mL/min/1.73m2 CKD-EP I Creatinine Equation (2020) Hematocrit Auto (Bld) [Volum e fraction]Ordered By: kyrieel pasojuan Ragland on 08-21-2024 Hematocrit (Bld) [Volume fraction] 42.9 % 40-54 [facility] Hemoglobin A1c percentageOrd ered By: Mena Ragland on 08-21-2024 HbA1c (Bld) [Mass fraction] 7.1 % >5.7 [facility] Hemoglobin measurementOrdere d By: Mena Ragland on 08-21-2024 Hemoglobin (Bld) [Mass/Vol] 14.8 g/dL 13.0-16.5 [facility] Immature granulocytes/100 WB C Auto (Bld)Ordered By: Mena Ragland on 08-21-2024 Immature granulocytes/100 WBC (Bld) 0.600 % 0.0-0.9 [place] [facility] Comment on above: IG% - Immature Granu locytes (promyelocytes, myelocytes and metamyelocytes) > 1% indicates that a LEFT SHIFT is Present. LDL calc ser/plasOrdered By: Mena Ragland on 08-21-2024 LDL Cholesterol, Calculated 67 mg/dL [facility] Comment on above: Eriyrhhpor=355-702 m g/dL & Higher Tjao=702 mg/dL or greater Laboratory - Chemistry and C hemistry - challengeOrdered By: Mena Ragland on 08-21-2024 AST [Catalytic activity/Vol] 32 U/L <38 [facility] Lipid Profileon 08-21-2024 CHOL:HDL 2.65 Normal [facility] Comment on above: Performed By: #### L 500.4100, L100.0100, L500.4050, L501.9910 ####[facility] [address] [place], [address] Cholesterol [Mass/Vol] 135 mg/dL Normal <=200 [facility] Comment on above: Result Comment: Chol esterol level, Desirable <200 mg/dL Borderline high cholesterol 200-239 mg/dL High cholesterol >=240 mg/dL Recommendations of the NCEP Adult Treatment Panel for the following risk-cutoff thresholds for the [place] population. Performed By: #### L 500.4100, L100.0100, L500.4050, L501.9910 ####[facility] [address] [place], [address] Cholesterol in HDL [Mass/Vol] 51 mg/dL Normal [facility] Comment on above: Result Comment: Iris onal Cholesterol Education Program (NCEP) guidelines: <40 mg/dL: Low HDL-cholesterol (major risk factor for CHD) >= 60 mg/dL: High HDL-cholesterol (negative risk factor for CHD) HDL-cholesterol is affected by a number of factors, e.g. smoking, exercise, hormones, sex and age. Performed By: #### L 500.4100, L100.0100, L500.4050, L501.9910 ####[facility] [address] [place], [address] Cholesterol in LDL [Mass/Vol] 67 mg/dL Normal [facility] Comment on above: Result Comment: Bord uyhlzp=456-473 mg/dL Higher Ddpm=318 mg/dL or greater Performed By: #### L 500.4100, L100.0100, L500.4050, L501.9910 ####[facility] [address] [place], [address] Cholesterol in VLDL [Mass/Vol] 17 mg/dL Normal 5-40 [facility] Comment on above: Performed By: #### L 500.4100, L100.0100, L500.4050, L501.9910 ####[facility] [address] [place], [address] Triglyceride [Mass/Vol] 85 mg/dL Normal [facility] Comment on above: Result Comment: The drugs N-Acetylcysteine and Metamizole may falsely depress this assay. Normal range: <150 mg/dL Borderline High: 150-199 mg/dL High: 200-499 mg/dL Very High: >500 mg/dL Performed By: #### L 500.4100, L100.0100, L500.4050, L501.9910 ####[facility] [address] [place], [address] Lymphocytes Auto (Unsp spec) [#/Vol]Ordered By: Mena Ragland on 08-21-2024 Lymphocytes (Bld) [#/Vol] 2.08 10*3/uL 0.83-4.5 1 [facility] Lymphocytes/100 WBC Auto (Un sp spec)Ordered By: Mena Ragland on 08-21-2024 Lymphocytes/100 WBC (Bld) 20.1 % 19-41 [facility] MCV (mean corpuscular volume ) determinationOrdered By: Mena Ragland on 08-21-2024 MCV (RBC) [Entitic vol] 91.3 fL 80-94 [facility] Mean corpuscular hemoglobin (MCH) determinationOrdered By: Mena Ragland on 08-21-2024 MCH (RBC) [Entitic mass] 31.5 pg 27.0-32.0 [facility] Mean corpuscular hemoglobin concentration (MCHC) determinationOrdered By: Mena Ragland on 08-21-2024 MCHC (RBC) [Mass/Vol] 34.5 g/dL 32-36 [facility] Mean platelet volume determi nationOrdered By: Mena Ragland on 08-21-2024 Platelet mean volume (Bld) [Entitic vol] 9.3 fL 6.2-12.0 [facility] Monocyte percentageOrdered B y: Mena Ragland on 08-21-2024 Monocytes/100 WBC (Bld) 7.3 % 0-10 [facility] Neutrophil percentageOrdered By: [facility] Marklesli on 08-21-2024 Neutrophils/100 WBC (Bld) 67.1 % 47-70 [facility] Nucleated red blood cell per centageOrdered By: kyrieel pasojuan Ragland on 08-21-2024 Nucleated RBC/100 WBC (Bld) [Ratio] 0 % 0-5 [facility] PSA, total screeningOrdered By: Mena Ragland on 08-21-2024 Prostate Specific Antigen Screen 4.26 ng/mL High 0.02-4.00 [facility] Comment on above: This test was perfor med using the [employer] [facility] tPSA method. Measured values of a patient sample can vary depending on the testing procedure used. PSA values determined on patient samples by different testing procedures cannot be used interchangeably. If there is a change in PSA assays while monitoring therapy, sequential testing should be performed to confirm baseline values. PSA,Total - Annual Screenon 08-21-2024 PSA,TOT SCREEN 4.26 ng/mL High 0.02-4.00 [facility] Comment on above: Result Comment: This test was performed using the [employer] tPSA method. Measured values of a patient??sample can vary depending on the testing procedure used. PSA values determined on patient samples by different testing procedures cannot be used interchangeably. If there is a change in PSA assays while monitoring therapy, sequential testing should be performed to confirm baseline values. Performed By: #### L 500.4100, L100.0100, L500.4050, L501.9910 ####[facility] [address] [place], [address] Platelet countOrdered By: Mario Ragland on 08-21-2024 Platelets (Bld) [#/Vol] 310 10*3/uL 150-450 [facility] Potassium (Unsp spec) [Mass/ Vol]Ordered By: Mena Ragland on 08-21-2024 Potassium [Moles/Vol] 4.4 mmol/L 3.3-5.1 [facility] RBC Auto (Bld) [#/Vol]Ordere d By: Mena Ragland on 08-21-2024 RBC (Bld) [#/Vol] 4.70 10*6/uL 4.6-6.2 [facility] Screening total cholesterol/ high density lipoprotein (HDL) cholesterol ratioOrdered By: Mena Ragland on 08-21-2024 Cholesterol.total/Cholest storm in HDL [Mass ratio] 2.65 {ratio} [facility] Serum creatinine measurement (mass/volume)Ordered By: Mena Ragland on 08-21-2024 Creatinine [Mass/Vol] 0.95 mg/dL 0.70-1.20 [facility] Serum globulin measurementOr dered By: Mena Ragland on 08-21-2024 Globulin (S) [Mass/Vol] 3.2 g/dL 2.2-4.2 [facility] Serum glucose measurement (m ass/volume)Ordered By: Mena Ragland on 08-21-2024 Glucose [Mass/Vol] 132 mg/dL High 70-99 [facility] Serum or plasma alanine becerra otransferase (ALT) measurementOrdered By: Mena Ragland on 08-21-2024 ALT [Catalytic activity/Vol] 30 U/L <47 [facility] Serum or plasma albumin eduardo urement (mass/volume)Ordered By: Mena Ragland on 08-21-2024 Albumin [Mass/Vol] 4.0 g/dL 3.4-4.8 [facility] Serum or plasma albumin/glob ulin mass ratioOrdered By: Mena Ragland on 08-21-2024 Albumin/Globulin [Mass ratio] 1.2 {ratio} 0.9-2.4 [facility] Serum or plasma alkaline ramiro sphatase measurementOrdered By: Mena Ragland 08-21-2024 ALP [Catalytic activity/Vol] 68 U/L 40-129 [facility] Serum or plasma calcium eduardo urement (mass/volume)Ordered By: Mena Ragland 08-21-2024 Calcium [Mass/Vol] 9.4 mg/dL 7.6-11.0 [facility] Serum or plasma cholesterol in HDL measurement (mass/volume)Ordered By: Mena Ragland 08-21-2024 Cholesterol in HDL [Mass/Vol] 51 mg/dL >40 [facility] Comment on above: National Cholesterol Education Program (NCEP) guidelines:<40 mg/dL: Low HDL-cholesterol (major risk factor for CHD)>= 60 mg/dL: High HDL-cholesterol (negative risk factor for CHD)HDL-cholesterol is affected by a number of factors, e.g. smoking, exercise, hormones, sex and age. Serum or plasma cholesterol measurement (mass/volume)Ordered By: Mena Ragland on 08-21-2024 Cholesterol [Mass/Vol] 135 mg/dL <201 [facility] Comment on above: Cholesterol level, D esirable <200 mg/dLBorderline high cholesterol 200-239 mg/dLHigh cholesterol >=240 mg/dLRecommendations of the NCEP Adult Treatment Panel for the following risk-cutoff thresholds for the [place] population. Serum or plasma urea nitroge n measurement (mass/volume)Ordered By: Mena Ragland 08-21-2024 Urea nitrogen [Mass/Vol] 16 mg/dL 4-19 [facility] Sodium levelOrdered By: Xiang ozunacan Obie 08-21-2024 Sodium [Moles/Vol] 138 mmol/L 133-145 [facility] Total proteinOrdered By: Kingston Ragland 08-21-2024 Protein [Mass/Vol] 7.2 g/dL 5.9-8.4 [facility] Triglycerides measurementOrd ered By: Mena Ragland on 08-21-2024 Triglyceride [Mass/Vol] 85 mg/dL <199 [facility] Comment on above: The drugs N-Acetylcy steine and Metamizole may falsely depress this assay. Normal range: <150 mg/dLBorderline High: 150-199 mg/dLHigh: 200-499 mg/dLVery High: >500 mg/dL White blood cell (WBC) count Ordered By: Mena Ragland on 08-21-2024 WBC (Bld) [#/Vol] 10.3 10*3/uL 4.4-11.0 [facility] - Microbiology an d Antimicrobial susceptibilityOrdered By: Navin Olson on 08-10-2024 SARS-CoV-2 (COVID-19) RNA DASIA+probe Ql (Unsp spec) Not detected [facility] No Panel InformationOrdered By: Navin Olson on 08-10-2024 Influenza Types A,B Rapid (Clinic) Not detected [facility] S. pyogenes Ag IA.rapid Ql ( Throat)Ordered By: Navin Olson on 08-10-2024 S. pyogenes Ag IA Ql (Unsp spec) Negative [facility] Urgent Care Visit Reporton 0 08-10-2024 Urgent Care Visit Report [facility] [address], [address] [place] [address] OFFICE VISIT Date of Service: 08/10/24 MR#: [id number] Acct: [id number] Name: MIGEL CURRY Rep #: [id number] : 1955 Provider: VIVEK Roe Age/Sex: 68/M Location: [facility] Status: Signed Intake Vital Signs 05/09/24 09:10 08/10/24 05:58 Height 5 ft 8 in 5 ft 8 in Weight: 219 lb BMI 33.3 BP 149/92 H 128/78 H Blood Pressure Location Lt brachial Lt brachial Position Sitting Sitting Respiration 16 14 Pulse 86 90 Pulse Source Monitor NIBP Temp 97.9 F Temp Source Oral Pulse Oximetry (%) 94 Oxygen Delivery Method room air Intake Visit Reasons: SORE THROAT Chief Complaint: ST 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 Is patient in pain?: No Allergies Tetanus Vaccines and Toxoid (Tetanus Vaccines Toxoid) Allergy (Verified 08/10/24 06:15) Unknown Medications ???Medication ???Instructions ???Recorded ???Confirmed ???Type nitroglycerin 0.4 mg sublingual 0.4 mg sublingual Q5-15M PRN chest 05/09/24 08/10/24 Rx tablet pain #25 tabs aspirin 81 mg tablet,delayed 81 mg PO DAILY #90 TABLETS 5 08/10/24 Rx release atorvastatin 80 mg tablet 80 mg PO DAILY #90 TABLETS 5 08/10/24 Rx carvedilol 12.5 mg tablet 12.5 mg PO BID #180 TABLETS 08/10/24 Rx lisinopril 20 2 tab PO DAILY #180 TABLETS 08/10/24 Rx mg-hydrochlorothia zide 12.5 mg tablet ketorolac 0.5 % eye drops drp ophthalmic (eye) 08/10/2407/29 History ofloxacin 0.3 % eye drops 2 drp ophthalmic (eye) Q6H 5 08/10/24 History Have you fallen in the past year?: No Nurse's Note: worsening ST since last noc. denies GONZALEZ, BA, cough, congest, fever. pt concerned that he has left eye surgery in 3 days. 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) High risk for hip fracture Osteopenia Type 2 diabetes mellitus Right hip pain History of COVID-19 Obesity Nonsustained ventricular tachycardia Hyperlipidemia Atherosclerotic heart disease of [place] coronary artery without angina pectoris Surgical History (Updated 08/10/24 @ 06:18 by Lluvia Cavanaugh) History of eye surgery History of coronary artery stent placement (09/06/13) History of vasectomy History of tonsillectomy Family History Father CAD (coronary artery disease) Myocardial infarction Other CVA (cerebral vascular accident) Cancer Diabetes Hypertension Social History housing: house Smoking Status: Never smoker alcohol intake: never substance use type: does not use caffeine: Yes Type: coffee what type of physical activity do you participate in: none seatbelt use: always HPI HPI Chief Complaint: ST Details: MIGEL CURRY, is a 68 M who presents to the office today for complaint of sore throat starting last night. Patient states that he has a eye surgery coming up in 3 days and wants to make sure that he does not have strep or influenza/COVID. Patient denies fever, chills or sweats. No nausea, vomiting or diarrhea. No hemoptysis, shortness of breath or difficulty breathing. No other associated symptoms or alleviating/aggrav ating factors. ROS Const Constitutional: Positive for other (See HPI) Exam Const General: cooperative and well developed HENMT Head: normal to inspection and atraumatic Ears: hearing grossly normal bilaterally Nose: nasal discharge clear Face and sinus: normal facial exam Mouth: oral mucosae normal Throat: abnormal tonsil bilaterally hypertrophy 1+ Resp Effort Inspection: normal respiratory effort and no audible wheezes Auscultation: Bilateral: Clear to Auscultation Cardio Rate: regular rate Rhythm: regular rhythm Neuro General: patient alert Psych Appearance: grossly normal Mental Status: mental status grossly normal Results POC Dulce Rapid Strep POC [place]ce Rapid Strep Negative Last Edit by Lluvia Cavanaugh on 08/10/24 06:32 POC DULCE Covid FluAB PCR POC Dulce Covid PCR Not Detected Last Edit by Lluvia Cavanaugh on 08/10/24 06:32 POC DULCE FLU NOT DETECTED FLU A B Last Edit by Lluvia Cavanaugh on 08/10/24 06:32 Coding Level of Care Code Off vis,est,level 3 Diagnoses Acute upper respiratory infection J06.9 Contact with or suspected exposure to other viral communicable disease Z20.828 Assessment and Plan Assessment and Plan (1) Acute upper respiratory inf (more content not included)... Normal [facility] Echo Complete W/ Contraston 05-25-2024 Echo Complete W/ Contrast [facility] [address] [place] [address] Echo Complete W/ Contrast 05/25/24 0748 MR#: [id number] Acct: [id number] Name: MIGEL CURRY Rep #: [id number] : 1955 68 From: Percy Horne MD Attending Dr: Dr. Percy Horne MD Status: REG C Ordering Dr: Percy Horne MD Date: 05/25/24 Location: [facility] Sex: M C Admitted: Version 2 Reason For Study: CAD Procedure This was a 2D Doppler, Color Flow transthoracic echocardiogram. The study was technically difficult. Exam performed in department. Left Ventricle Normal LV size. Left ventricular systolic function is normal. The left ventricular ejection fraction is 55 %. No regional wall motion abnormalities noted. Right Ventricle Normal RV size. Normal systolic function. Atria Normal left atrium. Normal right atrium. Mitral Valve Normal mitral valve. Tricuspid Valve Normal tricuspid valve. Aortic Valve Trisinus/trileafle t aortic valve. Pulmonic Valve Normal pulmonic valve. Great Vessels Normal aortic root. The pulmonary artery is normal size. Normal inferior vena cava. Pericardium/Pleura l No pericardial effusion. Medication Diluted definity 1.5ml given slow IV push to enhance endocardial definition. MMode/2D Measurements Calculations LVIDd: 3.6 cm IVSd: 0.98 cm Ao root diam: 3.2 cm LVIDs: 2.9 cm LVPWd: 1.1 cm RVDd: 3.4 cm FS: 19.0 % LAV(MOD-bp): 25.5 ml LVAd ap4: 27.1 cm2 LVAd ap2: 26.0 cm2 LAV(MOD-bp) Indexed: 12.0 ml/m2 LVLd ap4: 7.5 cm LVLd ap2: 7.9 cm LAV(MOD-sp2): 22.6 ml EDV(MOD-sp4): 78.5 ml EDV(MOD-sp2): 68.7 ml LAV(MOD-sp4): 27.1 ml EDV(sp4-el): 82.9 ml EDV(sp2-el): 72.4 ml LVAs ap4: 17.2 cm2 LVAs ap2: 18.0 cm2 LVLs ap4: 6.7 cm LVLs ap2: 6.9 cm ESV(MOD-sp4): 37.2 ml ESV(MOD-sp2): 38.9 ml ESV(sp4-el): 37.6 ml ESV(sp2-el): 39.9 ml EF(MOD-sp4): 52.6 % EF(MOD-sp2): 43.3 % EF(sp4-el): 54.7 % SV(MOD-sp4): 41.3 ml SV(MOD-sp2): 29.8 ml SV(sp4-el): 45.3 ml SI(MOD-sp4): 19.4 ml/m2 SI(MOD-sp2): 14.0 ml/m2 LA A4 area: 12.1 cm2 LA dimension(2D): 3.8 cm RA A4 area: 11.8 cm2 TAPSE: 1.6 cm Doppler Measurements Calculations MV E max donavon: 95.4 cm/sec Lat Peak E' Donavon: 15.6 cm/sec Med Peak E' Donavon: 16.3 cm/sec E/E' lat: 6.1 E/E' med: 5.8 Ao V2 max: 97.1 cm/sec LV V1 max: 82.8 cm/sec PA V2 max: 128.1 cm/sec Ao max P.8 mmHg LV V1 max P.7 mmHg ECHO/Echo Complete W/ Contrast Interpretation Summary Normal LV size. Left ventricular systolic function is normal. The left ventricular ejection fraction is 55 %. Contrast injection was performed. Structurally normal valves. Ordering Physician: Percy Horne Referring Physician: Mena Ragland Performed By: Cindy Gotti, [facility] 05/25/24 0909 Date Percy Horne MD CC: Dr. Percy Horne MD; Dr. Mena Ragland MD Date Dictated: 05/25/24 0748 Date Transcribed: 05/25/24907 Shoe Repair Cobbler: Signed Normal [facility] Stress Reporton 05-25-2024 Stress Report [facility] Cardiovascular Services [address] [place] [address] MR#: [id number] Acct: [id number] Name: MIGEL CURRY Rep #: [id number] : 1955 68 From: Percy Horne MD Primary Care: Dr. Mena Ragland MD Status: REG CLI Referring Dr: Percy Horne MD Sex: M C Stress Test Report Exercise myocardial perfusion stress test. 68-year-old male with a history of coronary artery disease Stress protocol: Resting EKG demonstrates normal sinus rhythm with a rate of 67 bpm resting blood pressure is 138/80 mmHg. The patient exercised according to the regular Oli protocol for a total duration of 8 minutes attaining a maximum heart rate of 139 bpm which was 90 of maximum predicted heart rate; the maximum workload was 10.1 metabolic equivalents. At rest there were no ST or T wave changes noted to suggest ischemia and at peak exercise upsloping ST changes only were noted which did not meet the criteria for ischemia. No clinical angina was noted the test was terminated due to the target heart rate being achieved/fatigue. The peak blood pressure was 164/72 mmHg. Rate-pressure product was 20,500. Myocardial perfusion protocol. 13.9 mCi of technetium 99m sestamibi was injected at rest. The patient exercised according to regular Oli protocol for total duration of 8 minutes and at peak exercise 44.1 mCi of technetium 99m sestamibi was injected stress images were obtained stress and rest images were reconstructed in comparing the short axis vertical long and horizontal long axis. Gated images were also obtained. Perfusion SPECT analysis: Review of the stress images demonstrate normal uptake of tracer noted in all areas of the myocardium. The resting images similarly demonstrate normal uptake of tracer noted in all areas of the myocardium. No areas of reversibility are noted to suggest ischemia no previous infarct was noted. Gated SPECT analysis: The gated ejection fraction is 74%. Conclusion: Normal exercise myocardial perfusion stress test at a high workload Preserved ejection fraction. 05/25/24 0937 Date Percy Horne MD CC: Dr. Percy Horne MD; Dr. Mena Ragland MD Date Dictated: 05/25/24934 Date Transcribed: 05/25/24934 Shoe Repair Cobbler: CO Signed Normal [facility] Bilirubin directOrdered By: Percy Horne on 05-11-2024 Bilirubin.direct [Mass/Vol] 0.18 mg/dL 0.00-0.30 [facility] Bilirubin, totalOrdered By: Percy Horne on 05-11-2024 Bilirubin [Mass/Vol] 0.70 mg/dL 0.20-1.00 [facility] Comment on above: For patients on eltr ombopag therapy, use of Dimension [place] TBIL is not recommended. High density lipoprotein (HD L) measurementOrdered By: Percy Horne on 05-11-2024 Cholesterol in HDL [Mass/Vol] 55 mg/dL >40 [facility] Comment on above: The drugs N-Acetylcy steine and Metamizole may falsely depress this assay. Reference Range HDL <40 mg/dL Low HDL Cholesterol HDL >or= 60 mg/dL High HDL Cholesterol Laboratory - Chemistry and C hemistry - challengeOrdered By: Percy Horne on 05-11-2024 AST [Catalytic activity/Vol] 32 U/L 15-37 [facility] Lipid Profileon 05-11-2024 Cholesterol [Mass/Vol] 140 mg/dL Normal 200 [facility] Comment on above: Result Comment: <200 mg/dL Desirable 200-240 mg/dL Borderline >240 mg/dL High Risk Performed By: #### L 500.4100, L500.3400 #### [facility] Laboratory [address] [place], [address] Cholesterol in HDL [Mass/Vol] 55 mg/dL Normal [facility] Comment on above: Result Comment: The drugs N-Acetylcysteine and Metamizole may falsely depress this assay. Reference Range HDL <40 mg/dL Low HDL Cholesterol HDL >or= 60 mg/dL High HDL Cholesterol Performed By: #### L 500.4100, L500.3400 #### [facility] Laboratory [address] [place], [address] Cholesterol in LDL [Mass/Vol] 64 mg/dL Normal 0-130 [facility] Comment on above: Performed By: #### L 500.4100, L500.3400 #### [facility] Laboratory [address] [place], [address] Cholesterol in VLDL [Mass/Vol] 21 mg/dL Normal 5-40 [facility] Comment on above: Performed By: #### L 500.4100, L500.3400 #### [facility] Laboratory [address] [place], [address] Triglyceride [Mass/Vol] 105 mg/dL Normal [facility] Comment on above: Result Comment: The drugs N-Acetylcysteine and Metamizole may falsely depress this assay. Serum Triglycerides Reference Interval Normal <150 mg/dL Borderline high 150 - 199 mg/dL High 200 - 499 mg/dL Very High > or = 500 mg/dL Performed By: #### L 500.4100, L500.3400 #### [facility] Laboratory [address] [place], [address] Liver Profileon 05-11-2024 Albumin [Mass/Vol] 3.6 g/dL Normal 3.2-5.0 [facility] Comment on above: Performed By: #### L 500.4100, L500.3400 #### [facility] Laboratory [address] [place], [address] ALK P 73 U/L Normal 45-117 [facility] Comment on above: Performed By: #### L 500.4100, L500.3400 #### [facility] [address] [place], [address] ALT [Catalytic activity/Vol] 44 U/L Normal 16-61 [facility] Comment on above: Performed By: #### L 500.4100, L500.3400 #### [facility] [address] [place], [address] AST [Catalytic activity/Vol] 32 U/L Normal 15-37 [facility] Comment on above: Performed By: #### L 500.4100, L500.3400 #### [facility] [address] [place], [address] Bilirubin [Mass/Vol] 0.70 mg/dL Normal 0.20-1.00 [facility] Comment on above: Result Comment: For patients on eltrombopag therapy, use of Dimension [place] TBIL is not recommended. Performed By: #### L 500.4100, L500.3400 #### [facility] [address] [place], [address] Bilirubin.direct [Mass/Vol] 0.18 mg/dL Normal 0.00-0.30 [facility] Comment on above: Performed By: #### L 500.4100, L500.3400 #### [facility] [address] [place], [address] Globulin (S) [Mass/Vol] 3.9 g/dL Normal 2.2-4.2 [facility] Comment on above: Performed By: #### L 500.4100, L500.3400 #### [facility] [address] [place], [address] T PROT 7.5 g/dL Normal 6.4-8.2 [facility] Comment on above: Performed By: #### L 500.4100, L500.3400 #### [facility] [address] [place], [address] Low density lipoprotein (LDL ) cholesterol measurementOrdered By: Percy Horne on 05-11-2024 Cholesterol in LDL [Mass/Vol] 64 mg/dL 0-130 [facility] Serum globulin measurementOr dered By: Percy Horne on 05-11-2024 Globulin (S) [Mass/Vol] 3.9 g/dL 2.2-4.2 [facility] Serum or plasma alanine becerra otransferase (ALT) measurementOrdered By: Percy Horne on 05-11-2024 ALT [Catalytic activity/Vol] 44 U/L 16-61 [facility] Serum or plasma albumin eduardo urement (mass/volume)Ordered By: Percy Horne on 05-11-2024 Albumin [Mass/Vol] 3.6 g/dL 3.2-5.0 [facility] Serum or plasma alkaline ramiro sphatase measurementOrdered By: Percy Horne on 05-11-2024 ALP [Catalytic activity/Vol] 73 U/L 45-117 [facility] Serum or plasma cholesterol measurement (mass/volume)Ordered By: Percy Horne on 05-11-2024 Cholesterol [Mass/Vol] 140 mg/dL <200 [facility] Comment on above: <200 mg/dL Desirable 200-240 mg/dL Borderline >240 mg/dL High Risk Total proteinOrdered By: Kate Horne on 05-11-2024 Protein [Mass/Vol] 7.5 g/dL 6.4-8.2 [facility] Triglycerides measurementOrd ered By: Percy Horne on 05-11-2024 Triglyceride [Mass/Vol] 105 mg/dL <199 [facility] Comment on above: The drugs N-Acetylcy steine and Metamizole may falsely depress this assay.Serum Triglycerides Reference Interval Normal <150 mg/dL Borderline high 150 - 199 mg/dL High 200 - 499 mg/dL Very High > or = 500 mg/dL Very low density lipoprotein (VLDL) cholesterol measurementOrdered By: Percy Horne on 05-11-2024 VLDL Cholesterol 21 mg/dL 5-40 [facility] Cardiology Visit Reporton Cardiology Visit Report [facility] [address] [place], [place] [address] OFFICE VISIT Date of Service: 05/09/24 MR#: [id number] Acct: [id number] Name: MIGEL CURRY Rep #: [id number] : 1955 Provider: Dr. Percy Horne MD Age/Sex: 68/M Location: [facility] Status: Signed HPI HPI History of Present Illness Details: Mr. Curry is a very pleasant 68-year-old gentleman, non diabetic, with hypertension, hypercholesterolem ia, positive premature coronary artery history in his father and paternal uncle, who presented to [facility] on 08/20/13 with acute anterior lateral myocardial infarction. Patient was emergently transported to [facility] where he underwent successful thrombectomy and bare metal stenting of the proximal LAD with a 4.50 x 20 bare-metal vision stent. In addition, he was found to have a critical lesion in his mid right coronary artery. He returned several weeks later electively to [facility] and underwent successful angioplasty and stenting of the mid RCA with a 4.0X 23 bare-metal stent. His LVEF obtained at the time of his anterior NV demonstrated this to be approximately 35-40%, but repeat echocardiogram done in December 2013 demonstrates an ejection fraction of 65% post-NV. He denies chest, arm, jaw, or neck discomfort. He denies palpitations. He states occasional, mild, bilateral lower extremity edema. He denies claudication. He denies shortness of breath with activity, shortness of breath at rest, orthopnea, or PND. He denies chronic cough. He denies significant, sudden weight gain. He states lightheadedness. He denies dizziness, near-syncope, or syncope. He denies blood in urine, blood in stool, or epistaxis. He denies fever with chills. He denies myalgia. He denies fatigue. His exercise level has remained stable. 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 Accompanied by: Self Is patient in pain?: No Allergies Tetanus Vaccines and Toxoid (Tetanus Vaccines Toxoid) Allergy (Verified 05/09/24 09:12) Unknown Medications ???Medication ???Instructions ???Recorded ???Confirmed ???Type aspirin 81 mg tablet,delayed 81 mg PO DAILY #90 TABLETS 03/03/24 05/09/24 Rx release atorvastatin 80 mg tablet 80 mg PO DAILY #90 TABLETS 03/03/24 05/09/24 Rx carvedilol 12.5 mg tablet 12.5 mg PO BID #180 TABLETS 03/03/24 05/09/24 Rx lisinopril 20 2 tab (2 x 20-12.5 mg) PO DAILY 03/03/24 05/09/24 Rx mg-hydrochlorothia zide 12.5 mg #180 TABLETS tablet nitroglycerin 0.4 mg sublingual 0.4 mg sublingual Q5-15M PRN chest 05/09/24 05/09/24 Rx tablet pain #25 tabs Have you fallen in the past year?: No PFSH Medical History BPH (benign prostatic hyperplasia) Elevated LFTs Encounter for preventive health examination Preventative health care Right knee pain Essential hypertension 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) High risk for hip fracture Osteopenia Health care maintenance Type 2 diabetes mellitus Right hip pain History of COVID-19 Obesity Nonsustained ventricular tachycardia Hyperlipidemia Atherosclerotic heart disease of [place] coronary artery without angina pectoris Surgical History History of coronary artery stent placement (09/06/13) History of vasectomy History of tonsillectomy Family History Father CAD (coronary artery disease) Myocardial infarction Other CVA (cerebral vascular accident) Cancer Diabetes Hypertension Social History housing: house Smoking Status: Never smoker alcohol intake: never substance use type: does not use caffeine: Yes Type: coffee what type of physical activity do you participate in: none seatbelt use: always ROS Const Const: Negative for fatigue, weakness, headache(s), daytime sleepiness or difficulty sleeping ENT ENT: Negative for headache(s), dizziness or Nosebleed/epistaxi s Cardio Chest Pain: No Palpitations: No Edema: None Resp Respiratory: Negative for SOB with activity, SOB at rest, SOB orthopnea SOB lying down or Cough GI GI: Negative nausea, vomiting or heartburn Neuro Neuro: Negative for dizziness, lightheadedness, near syncope, headache(s) or weakness Endo Endo: Negative for fatigue Cardiology Exam Const Appearance: cooperative, healthy appearing, no acute distress, well developed and well (more content not included)... Normal [facility] Hemoglobin A1con 04-10-2024 HbA1c (Bld) [Mass fraction] 6.8 % High 3.8-5.6 [facility] Comment on above: Result Comment: Norm al < 5.7 % Prediabetic 5.7 - 6.4 % Diabetic >or= 6.5 % Please note range changes. Performed By: #### L 501.9985 #### [facility] Laboratory [address] [place], [address] Basic Metabolic Profile (BMP )on 01-19-2024 BUN/CRE 17.9 RATIO Normal 10-20 [facility] Comment on above: Performed By: #### L 500.2500 #### [facility] [address] [place], [address] CA,Total 9.0 mg/dL Normal 8.5-10.1 [facility] Comment on above: Performed By: #### L 500.2500 #### [facility] [address] [place], [address] Chloride [Moles/Vol] 106 mmol/L Normal 98-107 [facility] Comment on above: Performed By: #### L 500.2500 #### [facility] [address] [place], [address] CO2 [Moles/Vol] 28.0 mmol/L Normal 21.0-32.0 [facility] Comment on above: Performed By: #### L 500.2500 #### [facility] [address] [place], [address] Creatinine [Mass/Vol] 0.89 mg/dL Normal 0.70-1.30 [facility] Comment on above: Result Comment: The validity of the calculated GFR GFRAA in patients over 70 years has not been determined. Clinical correlation is essential. Performed By: #### L 500.2500 #### [facility] [address] [place], [address] EST GFR - AA 109 mL/min Normal >60 [facility] Comment on above: Result Comment: Afri can [place]i GFR Calc Performed By: #### L 500.2500 #### [facility] [address] [place], [address] GAP 5 Normal 5-15 [facility] Comment on above: Performed By: #### L 500.2500 #### [facility] [address] [place], [address] GFR/1.73 sq M.predicted among non-blacks MDRD (S/P/Bld) [Vol rate/Area] 90 mL/min/{1.73_m2} Normal >60 [facility] Comment on above: Result Comment: Non- GFR Calc Performed By: #### L 500.2500 #### [facility] [address] [place], [address] Glucose [Mass/Vol] 134 mg/dL High 74-106 [facility] Comment on above: Result Comment: Fast ing Glucose result greater than or equal to 126 mg/dL suggests DIABETES MELLITUS per A.D.A. criteria. Performed By: #### L 500.2500 #### [facility] [address] [place], [address] Potassium [Moles/Vol] 4.2 mmol/L Normal 3.5-5.1 [facility] Comment on above: Performed By: #### L 500.2500 #### [facility] [address] [place], [address] Sodium [Moles/Vol] 139 mmol/L Normal 136-145 [facility] Comment on above: Performed By: #### L 500.2500 #### [facility] [address] [place], [address] Urea nitrogen [Mass/Vol] 16 mg/dL Normal 7-18 [facility] Comment on above: Performed By: #### L 500.2500 #### [facility] [address] [place], [address] Internal Medicine Office Vis iton 01-19-2024 Internal Medicine Office Visit [facility] [address] [place] [address] OFFICE VISIT Date of Service: 01/19/24 MR#: [id number] Acct: [id number] Name: MIGEL CURRY Rep #: [id number] : 1955 Provider: Dr. 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 Accompanied by: Self Is patient in pain?: No Allergies Tetanus Vaccines and Toxoid (Tetanus Vaccines Toxoid) Allergy (Verified 01/19/24 07:46) Unknown Medications ???Medication ???Instructions ???Recorded ???Confirmed ???Type aspirin 81 mg tablet,delayed 81 mg PO DAILY #90 tabs 03/09/23 01/19/24 Rx release atorvastatin 80 mg tablet 80 mg PO QDAY #90 tabs 03/09/23 01/19/24 Rx carvedilol 12.5 mg tablet 12.5 mg PO BID #180 tabs 03/09/23 01/19/24 Rx lisinopril 20 2 tab PO DAILY #180 tabs 03/09/23 01/19/24 Rx mg-hydrochlorothia zide 12.5 mg tablet nitroglycerin 0.4 mg sublingual 0.4 mg sublingual Q5-15M PRN chest 03/09/23 01/19/24 Rx tablet pain #25 tabs Have you fallen in the past year?: No PFSH Medical History BPH (benign prostatic hyperplasia) Elevated LFTs Encounter for preventive health examination Preventative health care Right knee pain Essential hypertension 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) High risk for hip fracture Osteopenia Health care maintenance Type 2 diabetes mellitus Right hip pain History of COVID-19 Obesity Nonsustained ventricular tachycardia Hyperlipidemia Atherosclerotic heart disease of [place] coronary artery without angina pectoris Surgical History History of coronary artery stent placement (09/06/13) History of vasectomy History of tonsillectomy Family History Father CAD (coronary artery disease) Myocardial infarction Other CVA (cerebral vascular accident) Cancer Diabetes Hypertension Social History housing: house Smoking Status: Never smoker alcohol intake: never substance use type: does not use caffeine: Yes Type: coffee what type of physical activity do you participate in: none seatbelt use: always HPI HPI Chief Complaint: 6m f/u Details: MIGEL CURRY, is a 68 M who presents to the office today for follow-up of his chronic medical conditions. No acute concerns at this time. History of diabetes mellitus type 2, A1c at his last visit was at 6.6. A1c today is at 7, he states that he has been eating a lot of sweet fruits and corn. Plans to make changes. Stays active. History of hypertension, blood pressure today is at 128/80 down from his last visit. He reports compliance with his medication. No chest pain, palpitation or shortness of breath. Other chronic medical conditions are stable. ROS Const Constitutional: No body ache, chills, excessive sweating, fatigue, fever(s), frequent falls, headache(s), snoring, weakness or change in appetite Eyes Eyes: No blurry vision, change in vision, bulging eyes, floaters, visual disturbances, eye pain or Light sensitivity ENT ENT: No abnormal hearing, ear or mastoid pain, tinnitus, balance problems, nosebleed/epistaxi s, nasal congestion, headache(s), neck pain or sore throat Resp Respiratory: No cough, excessive phlegm production, pain on inspiration, shortness of breath, snoring or wheezing Cardio Cardiology: No chest pain at rest, chest pain with exertion, excessive sweating, dyspnea on exertion, lightheadedness, orthopnea or palpitations Gastro GI: No abdominal pain, change in bowel habits, constipation, cramping, diarrhea, nausea/dyspepsia or vomiting Genitourinary Male: No burning urination, painful urination, urinary incontinence, urinary frequency or urinary hesitancy Musc Musculoskeletal: No abnormal gait, joint pain, back pain, limited range of motion, muscle cramps, muscle weakness, neck pain or numbness Skin Skin: No dry skin, redness, yellowing of the eye, lesions, itchy eyes, rash or wounds Neuro Neurology: No abnormal gait, abnormal hearing, behavioral changes, unsteady gait/balance, weakness, frequent falls, headache(s), memory loss, numbness or visual disturbances Psych Psychiatric: No anxiety, No behavioral changes, No change in appetite, No depression, No memory loss an (more content not included)... Normal [facility] Absolute lymphocyte countOrd ered By: Mena Ragland on 07-03-2023 Lymphocytes Auto (Unsp spec) [#/Vol] 1.43 10*3/uL 0.83-4.51 [facility] [facility] Automated lymphocyte count a s percentage of total leukocytesOrdered By: Mena Ragland on 07-03-2023 Lymphocytes/100 WBC Auto (Unsp spec) 19.6 % 19-41 [facility] Basophil percentageOrdered B y: Mena Ragland on 07-03-2023 Basophils/100 WBC (Bld) 0.8 % 0-1 [facility] Bilirubin [Mass/Vol] 0.90 mg/dL 0.20-1.00 [facility] Comment on above: For patients on eltr ombopag therapy, use of Dimension [place] TBIL is not recommended. Chloride [Moles/Vol] 107 mmol/L 98-107 [facility] Cholesterol [Mass/Vol] 134 mg/dL <200 [facility] Comment on above: <200 mg/dL Desirable 200-240 mg/dL Borderline >240 mg/dL High Risk Eosinophils/100 WBC (Bld) 4.7 % 0-5 [facility] Glucose [Mass/Vol] 123 mg/dL 74-106 [facility] Comment on above: Fasting Glucose resu lt from 100 to 125 mg/dL suggests IMPAIRED HOMEOSTASIS per A.D.A. criteria. Hemoglobin (Bld) [Mass/Vol] 15.4 g/dL 13.0-16.5 [facility] Monocytes/100 WBC (Bld) 9.6 % 0-10 [facility] Neutrophils (Bld) [#/Vol] 4.7 10*3/uL 2.0-7.7 [facility] Neutrophils/100 WBC (Bld) 65.0 % 47-70 [facility] Potassium [Moles/Vol] 4.2 mmol/L 3.5-5.1 [facility] Protein [Mass/Vol] 7.0 g/dL 6.4-8.2 [facility] Sodium [Moles/Vol] 139 mmol/L 136-145 [facility] Triglyceride [Mass/Vol] 92 mg/dL <199 [facility] Comment on above: The drugs N-Acetylcy steine and Metamizole may falsely depress this assay.Serum Triglycerides Reference Interval Normal <150 mg/dL Borderline high 150 - 199 mg/dL High 200 - 499 mg/dL Very High > or = 500 mg/dL WBC (Bld) [#/Vol] 7.3 10*3/uL 4.4-11.0 [facility] Determination of erythrocyte mean corpuscular volume (MCV)Ordered By: Mena Ragland on 07-03-2023 MCV (RBC) [Entitic vol] 93.0 fL 80-94 [facility] Erythrocyte distribution wid th ratioOrdered By: Mena Floreslesli on 07-03-2023 Erythrocyte distribution width (RBC) [Ratio] 13.3 % 11.6-14.6 [facility] Erythrocyte distribution wid th standard deviationOrdered By: [facility] Ricajuan Floreslesli on 07-03-2023 Erythrocyte distribution width (RBC) [Entitic vol] 45.1 fL 35.1-43.9 [facility] Hematocrit Auto (Bld) [Volum e fraction]Ordered By: Mena Ragland on 07-03-2023 Hematocrit (Bld) [Volume fraction] 46.6 % 40-54 [facility] Immature granulocytes/100 WB C Auto (Bld)Ordered By: Mena Ragland on 07-03-2023 Immature granulocytes/100 WBC (Bld) 0.300 % 0.0-0.9 [facility] Comment on above: IG% - Immature Granu locytes (promyelocytes, myelocytes and metamyelocytes) > 1% indicates that a LEFT SHIFT is Present. Laboratory - Chemistry and C hemistry - challengeOrdered By: Mena Ragland on 07-03-2023 Albumin/Globulin [Mass ratio] 1.0 {ratio} 0.9-2.4 [facility] ALP [Catalytic activity/Vol] 70 U/L 45-117 [facility] ALT [Catalytic activity/Vol] 42 U/L 16-61 [facility] Cholesterol in HDL (Body fld) [Mass/Vol] 57 mg/dL >40 [facility] Comment on above: The drugs N-Acetylcy steine and Metamizole may falsely depress this assay. Reference Range HDL <40 mg/dL Low HDL Cholesterol HDL >or= 60 mg/dL High HDL Cholesterol Cholesterol in LDL (Body fld) [Moles/Vol] 59 mg/dL 0-130 [facility] Cholesterol in VLDL Calc [Moles/Vol] 18 mg/dL 5-40 [facility] CO2 [Moles/Vol] 27.0 mmol/L 21.0-32.0 [facility] Globulin (S) [Mass/Vol] 3.5 g/dL 2.2-4.2 [facility] Prostate specific Ag IA [Mass/Vol] 3.57 ng/mL 0.00-4.00 [facility] Comment on above: This test was perfor med using the TPSA assay method for the[employer] chemistry system. Values obtained with differentassay methods cannot be used interchangably.When changing PSA assays in the course of monitoring apatient, additional sequential testing should be carriedout to confirm baseline values. Urea nitrogen/Creatinine [Mass ratio] 15.8 mg/mg 10-20 [facility] Laboratory - Hematology and Cell countsOrdered By: Mena Ragland on 07-03-2023 MCH (RBC) [Entitic mass] 30.7 pg 27.0-32.0 [facility] MCHC (RBC) [Mass/Vol] 33.0 g/dL 32-36 [facility] Nucleated RBC/100 WBC (Bld) [Ratio] 0 % 0-5 [facility] Platelets (Bld) [#/Vol] 248 10*3/uL 150-450 [facility] No Panel InformationOrdered By: Mena Ragland on 07-03-2023 Estimated GFR (MDRD) Amer 102 mL/min >60 [facility] Comment on above: GFR Calc Estimated GFR (MDRD) Non-Af Amer 84 mL/min >60 [facility] Comment on above: Non- GFR Calc Platelet mean volume Paddy-Ec ker (Bld) [Entitic vol]Ordered By: Mena Ragland on 07-03-2023 Platelet mean volume (Bld) [Entitic vol] 9.7 fL 6.2-12.0 [facility] RBC Auto (Bld) [#/Vol]Ordere d By: Mena Ragland on 07-03-2023 RBC (Bld) [#/Vol] 5.01 10*6/uL 4.6-6.2 [facility] Serum or plasma calcium eduardo urement (mass/volume)Ordered By: Mena Ragland on 07-03-2023 Calcium [Mass/Vol] 9.0 mg/dL 8.5-10.1 [facility] Serum or plasma creatinine m easurement (mass/volume)Ordered By: Mena Ragland on 07-03-2023 Creatinine [Mass/Vol] 0.95 mg/dL 0.70-1.30 [facility] Comment on above: The validity of the calculated GFR & GFRAA in patients over 70 years has not been determined. Clinical correlation is essential. Serum or plasma urea nitroge n measurement (mass/volume)Ordered By: Mena Ragland on 07-03-2023 Urea nitrogen [Mass/Vol] 15 mg/dL 7-18 [facility] Thin prep Papanicolaou smear with manual screeningOrdered By: Mena Ragland on 07-03-2023 Thin prep Papanicolaou smear with manual screening 3.5 g/dL 3.2-5.0 [facility] Thin prep Papanicolaou smear with manual screening 30 U/L 15-37 [facility] Thin prep Papanicolaou smear with manual screening 5 5-15 [facility] Whole blood hemoglobin A1c/t otal hemoglobin ratio (mass fraction)Ordered By: Mena Ragland on 07-03-2023 HbA1c (Bld) [Mass fraction] 6.6 % 3.8-5.6 [facility] Comment on above: Normal < 5.7 % Predi abetic 5.7 - 6.4 % Diabetic >or= 6.5 % Please note range changes. Laboratory - Hematology and Cell countson 03-17-2023 HbA1c (Bld) [Mass fraction] 6.7 % 4.2-6.3 [facility] Basophil percentageOrdered B y: Eliot Pittman on 12-19-2022 Bilirubin [Mass/Vol] 0.60 mg/dL 0.20-1.00 [facility] Comment on above: For patients on eltr ombopag therapy, use of Dimension [place] TBIL is not recommended. Chloride [Moles/Vol] 107 mmol/L 98-107 [facility] Glucose [Mass/Vol] 135 mg/dL 74-106 [facility] Comment on above: Fasting Glucose resu lt greater than or equal to 126 mg/dL suggests DIABETES MELLITUS per A.D.A. criteria. Potassium [Moles/Vol] 4.0 mmol/L 3.5-5.1 [facility] Protein [Mass/Vol] 6.8 g/dL 6.4-8.2 [facility] Sodium [Moles/Vol] 138 mmol/L 136-145 [facility] Laboratory - Chemistry and C hemistry - challengeOrdered By: Eliot Pittman on 12-19-2022 ALP [Catalytic activity/Vol] 76 U/L 45-117 [facility] ALT [Catalytic activity/Vol] 47 U/L 16-61 [facility] CO2 [Moles/Vol] 27.0 mmol/L 21.0-32.0 [facility] Globulin (S) [Mass/Vol] 3.4 g/dL 2.2-4.2 [facility] Urea nitrogen/Creatinine [Mass ratio] 20.6 mg/mg 10-20 [facility] No Panel InformationOrdered By: Eliot Pittman on 12-19-2022 Estimated GFR (MDRD) Amer 100 mL/min >60 [facility] Comment on above: GFR Calc Estimated GFR (MDRD) Non-Af Amer 82 mL/min >60 [facility] Comment on above: Non- GFR Calc Serum or plasma albumin eduardo urement (mass/volume)Ordered By: Eliot Pittman on 12-19-2022 Albumin [Mass/Vol] 3.4 g/dL 3.2-5.0 [facility] Serum or plasma albumin/glob ulin mass ratioOrdered By: Eliot Pittman on 12-19-2022 Albumin/Globulin [Mass ratio] 1.0 {ratio} 0.9-2.4 [facility] Serum or plasma calcium eduardo urement (mass/volume)Ordered By: Eliot Pittman on 12-19-2022 Calcium [Mass/Vol] 8.6 mg/dL 8.5-10.1 [facility] Serum or plasma creatinine m easurement (mass/volume)Ordered By: Eliot Pittman on 12-19-2022 Creatinine [Mass/Vol] 0.97 mg/dL 0.70-1.30 [facility] Comment on above: The validity of the calculated GFR & GFRAA in patients over 70 years has not been determined. Clinical correlation is essential. Serum or plasma urea nitroge n measurement (mass/volume)Ordered By: Eliot Pittman on 12-19-2022 Urea nitrogen [Mass/Vol] 20 mg/dL 7-18 [facility] Thin prep Papanicolaou smear with manual screeningOrdered By: Eliot Pittman on 12-19-2022 Thin prep Papanicolaou smear with manual screening 28 U/L 15-37 [facility] Thin prep Papanicolaou smear with manual screening 4 5-15 [facility] Absolute lymphocyte countOrd ered By: Eliot Pittman on 09-16-2022 Lymphocytes Auto (Unsp spec) [#/Vol] 1.44 10*3/uL 0.83-4.51 [facility] Basophil percentageOrdered B y: Eliot Pittman on 09-16-2022 Basophils/100 WBC (Bld) 0.8 % 0-1 [facility] Bilirubin [Mass/Vol] 0.80 mg/dL 0.20-1.00 [facility] Comment on above: For patients on eltr ombopag therapy, use of Dimension [place] TBIL is not recommended. Chloride [Moles/Vol] 107 mmol/L 98-107 [facility] Cholesterol [Mass/Vol] 146 mg/dL <200 [facility] Comment on above: <200 mg/dL Desirable 200-240 mg/dL Borderline >240 mg/dL High Risk Eosinophils/100 WBC (Bld) 5.0 % 0-5 [facility] Glucose [Mass/Vol] 129 mg/dL 74-106 [facility] Comment on above: Fasting Glucose resu lt greater than or equal to 126 mg/dL suggests DIABETES MELLITUS per A.D.A. criteria. Neutrophils (Bld) [#/Vol] 4.7 10*3/uL 2.0-7.7 [facility] Neutrophils/100 WBC (Bld) 65.1 % 47-70 [facility] Potassium [Moles/Vol] 4.1 mmol/L 3.5-5.1 [facility] Protein [Mass/Vol] 7.2 g/dL 6.4-8.2 [facility] Sodium [Moles/Vol] 137 mmol/L 136-145 [facility] Triglyceride [Mass/Vol] 130 mg/dL <199 [facility] Comment on above: The drugs N-Acetylcy steine and Metamizole may falsely depress this assay.Serum Triglycerides Reference Interval Normal <150 mg/dL Borderline high 150 - 199 mg/dL High 200 - 499 mg/dL Very High > or = 500 mg/dL WBC (Bld) [#/Vol] 7.2 10*3/uL 4.4-11.0 [facility] Blood erythrocytes count (nu mber/volume)Ordered By: Eliot Pittman on 09-16-2022 RBC (Bld) [#/Vol] 4.78 10*6/uL 4.6-6.2 [facility] Blood hemoglobin measurement (mass/volume)Ordered By: Eliot Pittman on 09-16-2022 Hemoglobin (Bld) [Mass/Vol] 15.0 g/dL 13.0-16.5 [facility] Blood lymphocytes/100 leukoc ytesOrdered By: Eliot Pittman on 09-16-2022 Lymphocytes/100 WBC (Bld) 20.0 % 19-41 [facility] Blood monocytes/100 leukocyt esOrdered By: Eliot Pittman on 09-16-2022 Monocytes/100 WBC (Bld) 8.8 % 0-10 [facility] Blood platelet mean volumeOr dered By: Eliot Pittman on 09-16-2022 Platelet mean volume (Bld) [Entitic vol] 10.2 fL 6.2-12.0 [facility] Determination of erythrocyte mean corpuscular volume (MCV)Ordered By: Eliot Pittman on 09-16-2022 MCV (RBC) [Entitic vol] 92.3 fL 80-94 [facility] Hematocrit Auto (Bld) [Volum e fraction]Ordered By: Eliot Pittman on 09-16-2022 Hematocrit (Bld) [Volume fraction] 44.1 % 40-54 [facility] Laboratory - Chemistry and C hemistry - challengeOrdered By: Eliot Pittman on 09-16-2022 ALP [Catalytic activity/Vol] 73 U/L 45-117 [facility] ALT [Catalytic activity/Vol] 70 U/L 16-61 [facility] CO2 [Moles/Vol] 25.0 mmol/L 21.0-32.0 [facility] Globulin (S) [Mass/Vol] 3.5 g/dL 2.2-4.2 [facility] Urea nitrogen/Creatinine [Mass ratio] 21.5 mg/mg 10-20 [facility] Laboratory - Hematology and Cell countsOrdered By: Eliot Pittman on 09-16-2022 Erythrocyte distribution width (RBC) [Entitic vol] 47.1 fL 35.1-43.9 [facility] Erythrocyte distribution width (RBC) [Ratio] 13.8 % 11.6-14.6 [facility] Immature granulocytes/100 WBC (Bld) 0.300 % 0.0-0.9 [facility] Comment on above: IG% - Immature Granu locytes (promyelocytes, myelocytes and metamyelocytes) > 1% indicates that a LEFT SHIFT is Present. MCH (RBC) [Entitic mass] 31.4 pg 27.0-32.0 [facility] Nucleated RBC/100 WBC (Bld) [Ratio] 0 % 0-5 [facility] Laboratory - Hematology and Cell countson 09-16-2022 HbA1c (Bld) [Mass fraction] 6.3 % 4.2-6.3 [facility] ([facility]BC) [Mass/Vol]Or dered By: Eliot Pittman on 09-16-2022 MCHC (RBC) [Mass/Vol] 34.0 g/dL 32-36 [facility] No Panel InformationOrdered By: Eliot Pittman on 09-16-2022 Estimated GFR (MDRD) Amer 104 mL/min >60 [facility] Comment on above: GFR Calc Estimated GFR (MDRD) Non-Af Amer 86 mL/min >60 [facility] Comment on above: Non- GFR Calc Thyroid Stimulating Hormone (TSH) 3.04 uIU/mL 0.358-3.74 [facility] Platelets bldOrdered By: Sharon Pittman on 09-16-2022 Platelets (Bld) [#/Vol] 262 10*3/uL 150-450 [facility] Serum or plasma albumin eduardo urement (mass/volume)Ordered By: Eliot Pittman on 09-16-2022 Albumin [Mass/Vol] 3.7 g/dL 3.2-5.0 [facility] Serum or plasma albumin/glob ulin mass ratioOrdered By: Eliot Pittman on 09-16-2022 Albumin/Globulin [Mass ratio] 1.1 {ratio} 0.9-2.4 [facility] Serum or plasma calcium eduardo urement (mass/volume)Ordered By: Eliot Pittman on 09-16-2022 Calcium [Mass/Vol] 8.8 mg/dL 8.5-10.1 [facility] Serum or plasma cholesterol in HDL measurement (mass/volume)Ordered By: Eliot Pittman on 09-16-2022 Cholesterol in HDL [Mass/Vol] 52 mg/dL >40 [facility] Comment on above: The drugs N-Acetylcy steine and Metamizole may falsely depress this assay. Reference Range HDL <40 mg/dL Low HDL Cholesterol HDL >or= 60 mg/dL High HDL Cholesterol Serum or plasma cholesterol in VLDL measurement (mass/volume)Ordered By: Eliot Pittman on 09-16-2022 Cholesterol in VLDL [Mass/Vol] 26 mg/dL 5-40 [facility] Serum or plasma creatinine m easurement (mass/volume)Ordered By: Eliot Pittman on 09-16-2022 Creatinine [Mass/Vol] 0.93 mg/dL 0.70-1.30 [facility] Comment on above: The validity of the calculated GFR & GFRAA in patients over 70 years has not been determined. Clinical correlation is essential. Serum or plasma low density lipoprotein (LDL) cholesterol measurement (mass/volume)Ordered By: Eliot Pittman on 09-16-2022 Cholesterol in LDL [Mass/Vol] 68 mg/dL 0-130 [facility] Serum or plasma urea nitroge n measurement (mass/volume)Ordered By: Eliot Pittman on 09-16-2022 Urea nitrogen [Mass/Vol] 20 mg/dL 7-18 [facility] Thin prep Papanicolaou smear with manual screeningOrdered By: Eliot Pittman on 09-16-2022 Thin prep Papanicolaou smear with manual screening 48 U/L 15-37 [facility] Thin prep Papanicolaou smear with manual screening 5 5-15 [facility] Absolute lymphocyte counton 10-14-2021 Lymphocytes Auto (Unsp spec) [#/Vol] 1.40 10*3/uL 0.83-4.51 [facility] Work Phone: Basophil percentageon 2021 Basophils/100 WBC (Bld) 1.0 % 0-1 [facility] Work Phone: [phone] Bilirubin [Mass/Vol] 0.70 mg/dL 0.20-1.00 [facility] Work Phone: [phone] Comment on above: For patients on eltr ombopag therapy, use of Dimension [place] TBIL is not recommended. Chloride [Moles/Vol] 105 mmol/L 98-107 [facility] Work Phone: Cholesterol [Mass/Vol] 135 mg/dL <200 [facility] Work Phone: Comment on above: <200 mg/dL Desirable 200-240 mg/dL Borderline >240 mg/dL High Risk Eosinophils/100 WBC (Bld) 5.5 % 0-5 [facility] Work Phone: [phone] Glucose [Mass/Vol] 129 mg/dL 74-106 [facility] Work Phone: [phone] Comment on above: Fasting Glucose resu lt greater than or equal to 126 mg/dL suggests DIABETES MELLITUS per A.D.A. criteria. Neutrophils (Bld) [#/Vol] 4.7 10*3/uL 2.0-7.7 [facility] Work Phone: [phone] Neutrophils/100 WBC (Bld) 65.6 % 47-70 [facility] Work Phone: [phone] Potassium [Moles/Vol] 4.2 mmol/L 3.5-5.1 [facility] Work Phone: [phone] Protein [Mass/Vol] 7.0 g/dL 6.4-8.2 [facility] Work Phone: [phone] Sodium [Moles/Vol] 138 mmol/L 136-145 [facility] Work Phone: [phone] Triglyceride [Mass/Vol] 102 mg/dL [facility] Work Phone: [phone] Comment on above: The drugs N-Acetylcy steine and Metamizole may falsely depress this assay.Serum Triglycerides Reference Interval Normal <150 mg/dL Borderline high 150 - 199 mg/dL High 200 - 499 mg/dL Very High > or = 500 mg/dL WBC (Bld) [#/Vol] 7.2 10*3/uL 4.4-11.0 [facility] Work Phone: [phone] Blood erythrocytes count (nu mber/volume)on 10-14-2021 RBC (Bld) [#/Vol] 5.06 10*6/uL 4.6-6.2 [facility] Work Phone: [phone] Blood hemoglobin measurement (mass/volume)on 10-14-2021 Hemoglobin (Bld) [Mass/Vol] 15.3 g/dL 13.0-16.5 [facility] Work Phone: [phone] Blood lymphocytes/100 leukoc yteson 10-14-2021 Lymphocytes/100 WBC (Bld) 19.6 % 19-41 [facility] Work Phone: Blood monocytes/100 leukocyt eson 10-14-2021 Monocytes/100 WBC (Bld) 8.0 % 0-10 [facility] Work Phone: Blood platelet mean volumeon 10-14-2021 Platelet mean volume (Bld) [Entitic vol] 10.7 fL 6.2-12.0 [facility] Work Phone: Determination of erythrocyte mean corpuscular volume (MCV)on 10-14-2021 MCV (RBC) [Entitic vol] 92.7 fL 80-94 [facility] Work Phone: Hematocrit Auto (Bld) [Volum e fraction]on 10-14-2021 Hematocrit (Bld) [Volume fraction] 46.9 % 40-54 [facility] Work Phone: Laboratory - Chemistry and C hemistry - challengeon 10-14-2021 ALP [Catalytic activity/Vol] 77 U/L 45-117 [facility] Work Phone: ALT [Catalytic activity/Vol] 38 U/L 16-61 [facility] Work Phone: CO2 [Moles/Vol] 28.0 mmol/L 21.0-32.0 [facility] Work Phone: [phone] Globulin (S) [Mass/Vol] 3.5 g/dL 2.2-4.2 [facility] Work Phone: Urea nitrogen/Creatinine [Mass ratio] 16.0 mg/mg 10-20 [facility] Work Phone: Laboratory - Hematology and Cell countson 10-14-2021 Erythrocyte distribution width (RBC) [Entitic vol] 44.7 fL 35.1-43.9 [facility] Work Phone: Erythrocyte distribution width (RBC) [Ratio] 13.1 % 11.6-14.6 [facility] Work Phone: Immature granulocytes/100 WBC (Bld) 0.300 % 0.0-0.9 [facility] Work Phone: Comment on above: IG% - Immature Granu locytes (promyelocytes, myelocytes and metamyelocytes) > 1% indicates that a LEFT SHIFT is Present. MCH (RBC) [Entitic mass] 30.2 pg 27.0-32.0 [facility] Work Phone: Nucleated RBC/100 WBC (Bld) [Ratio] 0 % 0-5 [facility] Work Phone: [phone] MCHC Auto (RBC) [Mass/Vol]on 10-14-2021 MCHC (RBC) [Mass/Vol] 32.6 g/dL 32-36 [facility] Work Phone: No Panel Informationon 10-14 Estimated GFR (MDRD) Amer 90 mL/min >60 [facility] Work Phone: Comment on above: GFR Calc Estimated GFR (MDRD) Non-Af Amer 75 mL/min >60 [facility] Work Phone: Comment on above: Non- GFR Calc Prostate Specific Antigen Screen 3.84 ng/mL 0.00-4.00 [facility] Work Phone: Comment on above: This test was perfor med using the TPSA assay method for the[employer] chemistry system. Values obtained with differentassay methods cannot be used interchangably.When changing PSA assays in the course of monitoring apatient, additional sequential testing should be carriedout to confirm baseline values. Platelets bldon 10-14-2021 Platelets (Bld) [#/Vol] 255 10*3/uL 150-450 [facility] Work Phone: [phone] Serum or plasma albumin eduardo urement (mass/volume)on 10-14-2021 Albumin [Mass/Vol] 3.5 g/dL 3.2-5.0 [facility] Work Phone: [phone] Serum or plasma albumin/glob ulin mass ratioon 10-14-2021 Albumin/Globulin [Mass ratio] 1.0 {ratio} 0.9-2.4 [facility] Work Phone: Serum or plasma calcium eduardo urement (mass/volume)on 10-14-2021 Calcium [Mass/Vol] 9.0 mg/dL 8.5-10.1 [facility] Work Phone: Serum or plasma cholesterol in HDL measurement (mass/volume)on 10-14-2021 Cholesterol in HDL [Mass/Vol] 51 mg/dL [facility] Work Phone: Comment on above: The drugs N-Acetylcy steine and Metamizole may falsely depress this assay. Reference Range HDL <40 mg/dL Low HDL Cholesterol HDL >or= 60 mg/dL High HDL Cholesterol Serum or plasma cholesterol in VLDL measurement (mass/volume)on 10-14-2021 Cholesterol in VLDL [Mass/Vol] 20 mg/dL 5-40 [facility] Work Phone: Serum or plasma creatinine m easurement (mass/volume)on 10-14-2021 Creatinine [Mass/Vol] 1.06 mg/dL 0.70-1.30 [facility] Work Phone: Comment on above: The validity of the calculated GFR & GFRAA in patients over 70 years has not been determined. Clinical correlation is essential. Serum or plasma low density lipoprotein (LDL) cholesterol measurement (mass/volume)on 10-14-2021 Cholesterol in LDL [Mass/Vol] 64 mg/dL 0-130 [facility] Work Phone: Serum or plasma urea nitroge n measurement (mass/volume)on 10-14-2021 Urea nitrogen [Mass/Vol] 17 mg/dL 7-18 [facility] Work Phone: Thin prep Papanicolaou smear with manual screeningon 10-14-2021 Thin prep Papanicolaou smear with manual screening 27 U/L 15-37 [facility] Work Phone: Thin prep Papanicolaou smear with manual screening 5 5-15 [facility] Work Phone: Office Visiton 03-08-2017 Documentation of current medications (procedure) Done Invalid Interpretation Code [facility] Work Phone: [phone] Fall risk assessment No Invalid Interpretation Code [facility] Work Phone: [phone] Protein mass conc Done Invalid Interpretation Code [facility] Work Phone: [phone] Lab Report: Lipid Profileon 02-23-2017 Cholesterol 111 mg/dL Invalid Interpretation Code 200 [facility] Work Phone: [phone] HDL Cholesterol 54 mg/dL Invalid Interpretation Code [facility] Work Phone: [phone] LDL Cholesterol 37 mg/dL Invalid Interpretation Code 0-130 [facility] Work Phone: [phone] Triglyceride 98 mg/dL Invalid Interpretation Code [facility] Work Phone: [phone] very low density lipoproteins 20 mg/dL Invalid Interpretation Code 5-40 [facility] Work Phone: [phone] Replaced Document: Liver Pro fileon 02-23-2017 Alanine aminotransferase (ALT) 28 U/L Invalid Interpretation Code 12-78 [facility] Work Phone: [phone] Albumin 3.7 g/dL Invalid Interpretation Code 3.4-5.0 [facility] Work Phone: [phone] Alkaline phosphatase (ALP) 77 U/L Invalid Interpretation Code 45-117 [facility] Work Phone: [phone] ALP enzyme act/vol (Bld) 77 U/L Invalid Interpretation Code 45-117 [facility] Work Phone: [phone] Aspartate aminotransferase (AST) 22 U/L Invalid Interpretation Code 15-37 [facility] Work Phone: [phone] Bilirubin (direct) 0.20 mg/dL Invalid Interpretation Code 0.00-0.30 [facility] Work Phone: [phone] Bilirubin (total) 0.70 mg/dL Invalid Interpretation Code 0.20-1.00 [facility] Work Phone: [phone] Globulin 3.1 g/dL Invalid Interpretation Code 2.3-3.5 [facility] Phone: [phone] Protein 6.8 g/dL Invalid Interpretation Code 6.4-8.2 [facility] Work Phone: [phone] Lab Report: Lipid Profileon 12-21-2016 Cholesterol 120 mg/dL Invalid Interpretation Code 200 [facility] Phone: [phone] HDL Cholesterol 55 mg/dL Invalid Interpretation Code [facility] Phone: [phone] LDL Cholesterol 48 mg/dL Invalid Interpretation Code 0-130 [facility] Phone: [phone] Triglyceride 87 mg/dL Invalid Interpretation Code [facility] Phone: [phone] very low density lipoproteins 17 mg/dL Invalid Interpretation Code 5-40 [facility] Work Phone: [phone] Lab Report: Liver Profileon 12-21-2016 Alanine aminotransferase (ALT) 31 U/L Invalid Interpretation Code 12-78 [facility] Phone: [phone] Albumin 3.5 g/dL Invalid Interpretation Code 3.4-5.0 [facility] Phone: [phone] Alkaline phosphatase (ALP) 70 U/L Invalid Interpretation Code 45-117 [facility] Phone: [phone] Aspartate aminotransferase (AST) 24 U/L Invalid Interpretation Code 15-37 [facility] Phone: [phone] Bilirubin (direct) 0.18 mg/dL Invalid Interpretation Code 0.00-0.30 [facility] Phone: [phone] Bilirubin (total) 0.80 mg/dL Invalid Interpretation Code 0.20-1.00 [facility] Phone: [phone] Globulin 3.1 g/dL Invalid Interpretation Code 2.3-3.5 [facility] Phone: [phone] Protein 6.6 g/dL Invalid Interpretation Code 6.4-8.2 [facility] Phone: [phone] Office Visiton 09-21-2016 Documentation of current medications (procedure) Done Invalid Interpretation Code [facility] Phone: [phone] Fall risk assessment No Invalid Interpretation Code [facility] Phone: [phone] Protein mass conc Done Invalid Interpretation Code [facility] Phone: [phone] 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 Work Phone: [phone] Anion gap 8 mmol/L Invalid Interpretation Code 5-15 [facility] Work Phone: [phone] Anion gap 4 molar conc 8 Invalid Interpretation Code 5-15 [facility] Work Phone: [phone] BUN/Creatinine Ratio 19.8 RATIO Invalid Interpretation Code 10-20 [facility] Work Phone: [phone] Calcium 8.7 mg/dL Invalid Interpretation Code 8.5-10.1 [facility] Work Phone: [phone] Chloride 104 mmol/L Invalid Interpretation Code 98-107 [facility] Work Phone: [phone] CO2 29.0 mmol/L Invalid Interpretation Code 21.0-32.0 [facility] Work Phone: [phone] CO2 ppres (BldV) 29.0 mmol/L Invalid Interpretation Code 21.0-32.0 [facility] Work Phone: [phone] Creatinine 0.91 mg/dL Invalid Interpretation Code 0.70-1.30 [facility] Work Phone: [phone] eGFR (non-black) 91 mL/min/{1.73_m2} Invalid Interpretation Code >60 [facility] Work Phone: [phone] eGFR (non-black) 110 mL/min/{1.73_m2} Invalid Interpretation Code >60 [facility] Work Phone: [phone] EST GFR - AA 110 mL/min Invalid Interpretation Code >60 [facility] Work Phone: [phone] Glucose 102 mg/dL Invalid Interpretation Code 70-110 [facility] Work Phone: [phone] Glucose mass conc 102 mg/dL Invalid Interpretation Code 70-110 [facility] Work Phone: [phone] Potassium 4.1 mmol/L Invalid Interpretation Code 3.5-5.1 [facility] Work Phone: [phone] Sodium 141 mmol/L Invalid Interpretation Code 136-145 [facility] Work Phone: [phone] Urea nitrogen 18 mg/dL Invalid Interpretation Code 7-18 [facility] Work Phone: [phone] Lab Report: Hemoglobin A1con 09-04-2016 HbA1c 6.5 % High 4.2-6.3 [facility] Work Phone: [phone] Office Visiton 03-17-2016 Tobacco smoking status NHIS Never smoker Invalid Interpretation Code [facility] Work Phone: [phone] Tobacco use CPHS Never smoker Invalid Interpretation Code [facility] Work Phone: [phone] Office Visiton 03-25-2015 cardiac risk group C Invalid Interpretation Code [facility] Work Phone: [phone] Dietary management education, guidance, and counseling (procedure) yes Invalid Interpretation Code [facility] Work Phone: [phone] General cardiovascular disease 10Y risk [#] [place].Selam'Agostmariana N/A Invalid Interpretation Code [facility] Work Phone: [phone] Lab Report: LIVERon 03-20-20 14 ALK 80 U/L Normal 50-136 [facility] Work Phone: [phone] GE use only - for [employer] import when terms are not otherwise specified 80 U/L Normal 50-136 [facility] Work Phone: [phone] Replaced Document: Ivy TAVERA Observationson 09-18-2013 EKG QRS axis -17 deg Invalid Interpretation Code [facility] Work Phone: [phone] electrocardiogram interpretation Sinus Rhythm - Negative T-waves -Possible Anterior ischemia . ABNORMAL Invalid Interpretation Code [facility] Work Phone: [phone] Interpretation Sinus Rhythm - Negative T-waves -Possible Anterior ischemia . ABNORMAL Invalid Interpretation Code [facility] Work Phone: [phone] P [place] 26 deg Invalid Interpretation Code [facility] Work Phone: [phone] P wave axis, electrocardiogram 26 deg Invalid Interpretation Code [facility] Work Phone: [phone] WI Interval 200 ms Invalid Interpretation Code [facility] Work Phone: [phone] WI interval, electrocardiogram 200 ms Invalid Interpretation Code [facility] Work Phone: [phone] Pulse (Heart Rate) 75 /min Invalid Interpretation Code [facility] Work Phone: [phone] Pulse (Heart Rate) 348 ms Invalid Interpretation Code [facility] Work Phone: [phone] QRS axis, electrocardiogram -17 deg Invalid Interpretation Code [facility] Work Phone: [phone] QRS Duration 98 ms Invalid Interpretation Code [facility] Work Phone: [phone] QRS duration, electrocardiogram 98 ms Invalid Interpretation Code [facility] Work Phone: [phone] QT Interval new path ms Invalid Interpretation Code [facility] Work Phone: [phone] QT interval, electrocardiogram new path ms Invalid Interpretation Code [facility] Work Phone: [phone] T Le[place] 51 deg Invalid Interpretation Code [facility] Work Phone: [phone] T wave axis, electrocardiogram 51 deg Invalid Interpretation Code [facility] Work Phone: [phone] Lab Reporton 09-16-2013 Cholesterol to HDL Ratio 2.73 {ratio} Invalid Interpretation Code [facility] Work Phone: [phone] Clinical Lists Update: 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 Work Phone: [phone] WBC (Leukocytes) 10.3 10*3/uL Invalid Interpretation Code [facility] Work Phone: [phone] Vital Signs Date Time Vital Sign Value Performing Clinician Faci lity 08-10-2024 05:58-0400 Body height 172.[address] Mena Ragland MD Work Phone: [facility] 08-10-2024 05:58-0400 Body temperature 97.9 [degF] Dr. Mena Ragland MD Work Phone: [facility] 08-10-2024 05:58-0400 Diastolic blood pressure 78 mm[Hg] Dr. Mena Ragland MD Work Phone: [facility] 08-10-2024 05:58-0400 Heart rate 90 /min Dr. Mena Ragland MD Work Phone: [facility] 08-10-2024 05:58-0400 Respiratory rate 14 /min Dr. Mena Ragland MD Work Phone: [facility] 08-10-2024 05:58-0400 SaO2% (BldA) [Mass fraction] 94 % Dr. Mena Ragland MD Work Phone: [facility] 08-10-2024 05:58-0400 Systolic blood pressure 128 mm[Hg] Dr. Mena Ragland MD Work Phone: [facility] 05-09-2024 09:10-0500 Body mass index (BMI) [Ratio] 33.3 kg/m2 Dr. Mena Ragland MD Work Phone: [facility] 05-09-2024 09:10-0500 Body weight 99.[address] Mena Ragland MD Work Phone: [facility] 05-09-2024 09:10-0500 Diastolic blood pressure 92 mm[Hg] Dr. Mena Ragland MD Work Phone: [facility] 05-09-2024 09:10-0500 Heart rate 86 /min Dr. Mena Ragland MD Work Phone: [facility] 05-09-2024 09:10-0500 Respiratory rate 16 /min Dr. Mena Ragland MD Work Phone: [facility] 05-09-2024 09:10-0500 Systolic blood pressure 149 mm[Hg] Dr. Mena Ragland MD Work Phone: [facility] 03-17-2023 07:58-0400 Body height 172.[address] Mena Ragland Work Phone: [facility] 03-17-2023 07:58-0400 Body mass index (BMI) [Ratio] 33.3 kg/m2 Dr. Mena Ragland Work Phone: [facility] 03-17-2023 07:58-0400 Body temperature 98.2 [degF] Dr. Mena Ragland Work Phone: [facility] 03-17-2023 07:58-0400 Body weight 99.[address] Mena Ragland Work Phone: [facility] 03-17-2023 07:58-0400 Diastolic blood pressure 68 mm[Hg] Dr. Mena Ragland Work Phone: [facility] 03-17-2023 07:58-0400 Heart rate 70 /min Dr. Mena Ragland Work Phone: [facility] 03-17-2023 07:58-0400 Respiratory rate 14 /min Dr. Mena Ragland Work Phone: [facility] 03-17-2023 07:58-0400 SaO2% (BldA) [Mass fraction] 98 % Dr. Mena Ragland Work Phone: [facility] 03-17-2023 07:58-0400 Systolic blood pressure 130 mm[Hg] Dr. Mena Ragland Work Phone: [facility] 11-22-2022 09:15-0400 Body height 172.[address] Mena Ragland Work Phone: [facility] 11-22-2022 09:15-0400 Body mass index (BMI) [Ratio] 33.4 kg/m2 Dr. Mena Ragland Work Phone: [facility] 11-22-2022 09:15-0400 Body temperature 97.7 [degF] Dr. Mena Ragland Work Phone: [facility] 11-22-2022 09:15-0400 Body weight 99.[address] Mena Ragland Work Phone: [facility] 11-22-2022 09:15-0400 Diastolic blood pressure 90 mm[Hg] Dr. Mena Ragland Work Phone: [facility] 11-22-2022 09:15-0400 Heart rate 88 /min Dr. Mena Ragland Work Phone: [facility] 11-22-2022 09:15-0400 Respiratory rate 16 /min Dr. Mena Ragland Work Phone: [facility] 11-22-2022 09:15-0400 SaO2% (BldA) [Mass fraction] 97 % Dr. Mena Ragland Work Phone: [facility] 11-22-2022 09:15-0400 Systolic blood pressure 140 mm[Hg] Dr. Mena Ragland Work Phone: [facility] 09-16-2022 08:09-0400 Body height 172.[address] Mena Ragland Work Phone: [facility] 09-16-2022 08:09-0400 Body mass index (BMI) [Ratio] 32.5 kg/m2 Dr. Mena Ragland Work Phone: [facility] 09-16-2022 08:09-0400 Body temperature 96.3 [degF] Dr. Mena Ragland Work Phone: [facility] 09-16-2022 08:09-0400 Body weight 97.[address] Mena Ragland Work Phone: [facility] 09-16-2022 08:09-0400 Diastolic blood pressure 96 mm[Hg] Dr. Mena Ragland Work Phone: [facility] 09-16-2022 08:09-0400 Heart rate 83 /min Dr. Mena Ragland Work Phone: [facility] 09-16-2022 08:09-0400 Respiratory rate 18 /min Dr. Mena Ragland Work Phone: [facility] 09-16-2022 08:09-0400 SaO2% (BldA) [Mass fraction] 96 % Dr. Mena Ragland Work Phone: [facility] 09-16-2022 08:09-0400 Systolic blood pressure 142 mm[Hg] Dr. Mean Ragland Work Phone: [facility] 10-14-2021 08:11-0400 Body height 172.[address] Mena Ragland Work Phone: [facility] Work Phone: 10-14-2021 08:11-0400 Body mass index (BMI) [Ratio] 32.2 kg/m2 Dr. Mena Rgaland Work Phone: [facility] Work Phone: 10-14-2021 08:11-0400 Body temperature 97.7 [degF] Dr. Mena Ragland Work Phone: [facility] Work Phone: 10-14-2021 08:11-0400 Body weight 96.[address] Mena Ragland Work Phone: [facility] Work Phone: 10-14-2021 08:11-0400 Diastolic blood pressure 80 mm[Hg] Dr. Mena Ragland Work Phone: [facility] Work Phone: 10-14-2021 08:11-0400 Heart rate 73 /min Dr. Mena Ragland Work Phone: [facility] Work Phone: 10-14-2021 08:11-0400 Respiratory rate 16 /min Dr. Mena Ragland Work Phone: [facility] Work Phone: 10-14-2021 08:11-0400 SaO2% (BldA) [Mass fraction] 99 % Dr. Mena Ragland Work Phone: [facility] Work Phone: 10-14-2021 08:11-0400 Systolic blood pressure 144 mm[Hg] Dr. Mena Ragland Work Phone: [facility] Work Phone: 03-22-2017 08:51-0400 BP Diastolic 88 mm[Hg] [facility] Work Phone: 03-22-2017 08:51-0400 BP Systolic 130 mm[Hg] Harumi DeFinis [facility] Work Phone: 03-22-2017 08:51-0400 Pulse (Heart Rate) 72 /min [facility] Work Phone: 03-22-2017 08:51-0400 Respiratory Rate 16 /min [facility] [employer] [facility] Work Phone: 03-08-2017 14:32-0400 BMI (Body Mass Index) 31.01 kg/m2 [facility] Work Phone: 03-08-2017 14:32-0400 BP Diastolic 100 mm[Hg] [facility] Work Phone: 03-08-2017 14:32-0400 BP Systolic 146 mm[Hg] [facility] Work Phone: 03-08-2017 14:32-0400 Height 170.18 cm Mary Jo [facility] Work Phone: 03-08-2017 14:32-0400 Pulse [...] 09-21-2016 15:35-0400 Pulse (Heart Rate) 84 /min [facility] Work Phone: 09-21-2016 15:35-0400 Respiratory Rate 20 /min [facility] Work Phone: 09-21-2016 15:35-0400 Weight 89 kg [facility] Work Phone: 03-17-2016 09:40-0400 BSA (Body Surface Area) 2 m2 [facility] Work Phone: 09-18-2013 11:10-0400 Heart rate 75 /min [facility] Work Phone: 09-18-2013 11:10-0400 Heart rate 348 ms [facility] Work Phone: Encounters Encounter Date Encounter Type Care Provider Facility Start: 08-30-2024 End: 08-30-2024 ambulatory [facility] Facility:[facility] Start: 08-28-2024 Encounter for genera l adult medical examination without abnormal findings [facility] Start: 08-21-2024 End: 08-21-[address] Mena Ragland MD Work Phone: [facility] Work Phone: Start: 08-21-2024 End: 08-21-[address] Mena Ragland MD -Laboratory Work Phone: Start: 08-21-2024 End: 08-21-2024 ambulatory [facility] Facility:[facility] Start: 08-10-2024 End: 08-10-2024 Patient encounter procedure Navin Olson [facility] Work Phone: Start: 08-10-2024 End: 08-10-2024 ambulatory [facility] Facility[facility] Start: 05-25-2024 ambulatory [facility] Fac[facility] Start: 05-25-2024 Non-patient / Non-visit Dr. Thomas [facility] Start: 05-25-2024 End: 05-25-[address] Percy Horne MD -Cardiovascular Services Work Phone: Start: 05-25-2024 End: 05-25-2024 ambulatory Percy Horne Facility:[facility] Start: 05-11-2024 End: 05-11-[address] Percy Horne MD -Laboratory, [place] Work Phone: Start: 05-11-2024 End: 05-11-2024 ambulatory Percy Horne Facility:[facility] Start: 05-09-2024 End: 05-09-[address] Percy Horne MD -[facility] Work Phone: Start: 05-09-2024 End: 05-09-2024 ambulatory Percy Horne [facility] Start: 04-10-2024 End: 04-10-[facility] Start: 01-19-2024 End: 01-19-2024 ambulatory [facility] Start: 01-19-2024 End: 01-19-2024 ambulatory [facility] Facility:[facility] Start: 07-03-2023 End: 07-03-[address] Mena Ragland Work Phone: [facility] Work Phone: Start: 07-03-2023 End: 07-03-[address] Mena Ragland Work Phone: [facility]-Laboratory Work Phone: Start: 03-17-2023 End: 03-17-[address] Mena Ragland Work Phone: [facility] Work Phone: Start: 12-19-2022 End: 12-19-[address] Mena Ragland Work Phone: [facility] Work Phone: Start: 12-19-2022 End: 12-19-[address] [facility] Start: 11-22-2022 End: 11-22-[address] Mena Ragland Work Phone: [facility] Work Phone: Start: 09-16-2022 End: 09-16-[address] Mena Ragland Work Phone: [facility] Work Phone: Start: 09-16-2022 End: 09-16-[address] [facility]agland [facility] [place] Start: 09-16-[address] Mena Ragland Work Phone: [facility] Start: 09-16-2022 End: 09-16-2022 Encounter for general adult medical examination without abnormal findings Dr. Mena Ragland Work Phone: [facility] Start: 09-16-2022 End: 09-16-[address] Mena Ragland Work Phone: [facility] Start: 10-14-2021 End: 10-14-[address] Mena Ragland Work Phone: [facility] [place] Start: 10-14-[address] Mena Ragland Work Phone: [facility] Start: 10-14-2021 End: 10-14-2021 Encounter for general adult medical examination without abnormal findings Dr. Mena Ragland Work Phone: [facility] Start: 10-14-2021 End: 10-14-[address] Mena Ragland Work Phone: [facility] Start: 11-29-[address] Mena Ragland Work Phone: [facility] Procedures Date Procedure Procedure Detail Performing Clinician Start: 05-25-2024 Radionuclide imaging of perfusion of myocardium under exercise stress Dr. Mena Ragland MD Work Phone: Start: 03-08-2017 End: 03-08-2017 HYUN Espinoza MD [...] MD Work Phone: Start: 09-21-2016 End: 09-21-2016 DJN Brian Espinoza MD Work Phone: Start: 09-21-2016 End: 09-21-2016 Follow Up Appt 6 months Brian Espinoza MD Work Phone: Start: 09-21-2016 End: 09-21-2016 RONYN Brian Espinoza MD Work Phone: Start: 09-21-2016 End: 09-21-2016 Follow Up Appt 6 months Brian Espinoza MD Work Phone: Start: 09-04-2016 End: 09-04-2016 *CMP Complete Metabolic Panel Brian Espinoza MD Work Phone: Start: 09-04-2016 End: 09-04-2016 Hemoglobin A1c/Hemoglobin.total in Blood Brian Espinoza MD Work Phone: Start: 09-04-2016 End: 09-04-2016 Lipid 1996 panel - Serum or Plasma Brian Espinoza MD Work Phone: Start: 09-04-2016 End: 09-04-2016 *CMP Complete Metabolic Panel Brian Espinoza MD Work Phone: Start: 09-04-2016 End: 09-04-2016 HbA1c Brian Espinoza MD Work Phone: Start: 09-04-2016 End: 09-04-2016 Lipid panel [AGGREGATE] Brian Espinoza MD Work Phone: Start: 03-17-2016 End: 03-18-2016 *CMP Complete Metabolic Panel Brian Espinoza MD Work Phone: Start: 03-17-2016 End: 03-17-2016 HYUN Espinoza MD Work Phone: Start: 03-17-2016 End: 03-17-2016 Follow Up Appt 6 months Brian Espinoza MD Work Phone: Start: 03-17-2016 End: 03-18-2016 Hemoglobin A1c/Hemoglobin.total in Blood Brian Espinoza MD Work Phone: Start: 03-17-2016 End: 03-18-2016 *CMP Complete Metabolic Panel Brian Espinoza MD Work Phone: Start: 03-17-2016 [...] MD Work Phone: Start: 03-25-2015 End: 03-25-2015 HYUN Espinoza MD [...] MD Work Phone: Start: 03-20-2014 End: 03-20-2014 HYUN [...] MD Work Phone: Start: 09-18-2013 End: 09-18-2013 DJN Brian Espinoza MD Work Phone: Start: 09-18-2013 End: 03-20-2014 Echocardiography Brian Espinoza MD Work Phone: Start: 09-18-2013 End: 09-18-2013 Follow Up Appt 1 year [facility] Work Phone: Start: 09-18-2013 End: 03-20-2014 Lipid 1996 panel - Serum or Plasma Brian Espinoza MD Work Phone: Start: 09-18-2013 End: 12-11-2013 Cardiac Rehab Brian Espinoza MD Work Phone: Start: 09-18-2013 End: 09-18-2013 DJN Brian Espinoza MD Work Phone: Start: 09-18-2013 End: 03-20-2014 Echocardiography Brian Espinoza MD Work Phone: Start: 09-18-2013 End: 09-18-2013 Follow Up Appt 1 year [facility] Work Phone: Start: 09-18-2013 End: 03-20-2014 Lipid panel [AGGREGATE] Brian Espinoza MD Work Phone: Start: 09-06-2013 History of placement of stent for coronary artery disease History of coronary artery stent placement Dr. Percy Horne MD Comment on above: Thrombectomy w/BMS t o Prox-Mid LAD 4.5 x 20 mm VeriFlex 08/20/13; BMS to RCA w/ 4 x 23 mm Vision 09/06/13 Plan of Treatment Date Care Activity Detail Author Start: 10-04-2017 End: 10-04-2017 Appointment Appointment [facility] Work Phone: Start: 08-23-2017 End: 02-27-2017 *Hepatic Function Panel *Hepatic Function Panel [facility] Work Phone: Start: 08-23-2017 End: 02-27-2017 Lipid panel [AGGREGATE] *Lipid Profile CC PCP [facility] Work Phone: Start: 08-23-2017 End: 02-27-2017 *Hepatic Function Panel *Hepatic Function Panel [facility] Work Phone: Start: 08-23-2017 End: 02-27-2017 Lipid panel [AGGREGATE] *Lipid Profile CC PCP [facility] Work Phone: Start: 06-21-2017 End: 12-30-2016 *Hepatic Function Panel *Hepatic Function Panel [facility] Work Phone: Start: 06-21-2017 End: 12-30-2016 Lipid panel [AGGREGATE] *Lipid Profile CC PCP [facility] Work Phone: Start: 03-22-2017 End: 03-22-2017 Appointment Appointment [facility] Work Phone: Start: 03-08-2017 End: 03-08-2017 Appointment Appointment [facility] Work Phone: Start: 03-08-2017 End: 12-21-2016 *Hepatic Function Panel *Hepatic Function Panel [facility] Work Phone: Start: 03-08-2017 End: 03-08-2017 HYUN PURVIS [facility] Work Phone: Start: 03-08-2017 End: 03-08-2017 Follow Up Appt 6 months Follow Up Appt 6 months [facility] Work Phone: Start: 03-08-2017 End: 03-08-2017 Follow Up BP Check Follow Up BP Check [facility] Work Phone: Start: 03-08-2017 End: 12-21-2016 Lipid panel [AGGREGATE] *Lipid Profile CC PCP [facility] Work Phone: Start: 03-08-2017 End: 12-21-2016 *Hepatic Function Panel *Hepatic Function Panel [facility] Work Phone: Start: 03-08-2017 End: 12-21-2016 Lipid panel [AGGREGATE] *Lipid Profile CC PCP [facility] Work Phone: Start: 09-21-2016 End: 09-21-2016 HYUN PURVIS [facility] Work Phone: Start: 09-21-2016 End: 09-21-2016 Follow Up Appt 6 months Follow Up Appt 6 months [facility] Work Phone: Start: 09-21-2016 End: 09-21-2016 DJN DJN [facility] Work Phone: Start: 09-21-2016 End: 09-21-2016 Follow Up Appt 6 months Follow Up Appt 6 months [facility] Work Phone: Start: 09-07-2016 End: 09-04-2016 *CMP Complete Metabolic Panel *CMP Complete Metabolic Panel [facility] Work Phone: Start: 09-07-2016 End: 09-04-2016 Hemoglobin A1c/Hemoglobin.total mass fraction (Bld) *HgA1C [facility] Work Phone: Start: 09-07-2016 End: 09-04-2016 Lipid panel [AGGREGATE] *Lipid Profile CC PCP [facility] Work Phone: Start: 09-07-2016 End: 09-04-2016 *CMP Complete Metabolic Panel *CMP Complete Metabolic Panel [facility] Work Phone: Start: 09-07-2016 End: 09-04-2016 HbA1c *HgA1C [facility] Work Phone: Start: 09-07-2016 End: 09-04-2016 Lipid panel [AGGREGATE] *Lipid Profile CC PCP [facility] Work Phone: Start: 03-17-2016 End: 03-18-2016 *CMP Complete Metabolic Panel *CMP Complete Metabolic Panel [facility] Work Phone: Start: 03-17-2016 End: 03-17-2016 DJN DJN [facility] Work Phone: Start: 03-17-2016 End: 03-17-2016 Follow Up Appt 6 months Follow Up Appt 6 months [facility] Work Phone: Start: 03-17-2016 End: 03-18-2016 Hemoglobin A1c/Hemoglobin.total mass fraction (Bld) *HgA1C [facility] Work Phone: Start: 03-17-2016 End: 03-18-2016 *CMP Complete Metabolic Panel *CMP Complete Metabolic Panel [facility] Work Phone: Start: 03-17-2016 End: 03-17-2016 DJN DJN [facility] Work Phone: Start: 03-17-2016 End: 03-17-2016 Follow Up Appt 6 months Follow Up Appt 6 months [facility] Work Phone: Start: 03-17-2016 End: 03-18-2016 HbA1c *HgA1C [facility] Work Phone: Start: 03-02-2016 End: 03-12-2016 *Hepatic Function Panel *Hepatic Function Panel [facility] Work Phone: Start: 03-02-2016 End: 03-12-2016 Lipid panel [AGGREGATE] *Lipid Profile CC PCP [facility] Work Phone: Start: 03-02-2016 End: 03-12-2016 *Hepatic Function Panel *Hepatic Function Panel [facility] Work Phone: Start: 03-02-2016 End: 03-12-2016 Lipid panel [AGGREGATE] *Lipid Profile CC PCP [facility] Work Phone: Start: 09-11-2015 End: 09-13-2015 *Hepatic Function Panel *Hepatic Function Panel [facility] Work Phone: Start: 09-11-2015 End: 09-13-2015 Lipid panel [AGGREGATE] *Lipid Profile CC PCP [facility] Work Phone: Start: 09-11-2015 End: 09-13-2015 *Hepatic Function Panel *Hepatic Function Panel [facility] Work Phone: Start: 09-11-2015 End: 09-13-2015 Lipid panel [AGGREGATE] *Lipid Profile CC PCP [facility] Work Phone: Start: 03-26-2015 End: 03-12-2015 *Hepatic Function Panel *Hepatic Function Panel [facility] Work Phone: Start: 03-26-2015 End: 03-12-2015 Lipid panel [AGGREGATE] *Lipid Profile CC PCP [facility] Work Phone: Start: 03-26-2015 End: 03-12-2015 *Hepatic Function Panel *Hepatic Function Panel [facility] Work Phone: Start: 03-26-2015 End: 03-12-2015 Lipid panel [AGGREGATE] *Lipid Profile CC PCP [facility] Work Phone: Start: 03-25-2015 End: 03-25-2015 DJN DJN [facility] Work Phone: Start: 03-25-2015 End: 03-25-2015 Follow Up Appt 1 year Follow Up Appt 1 year [facility] Work Phone: Start: 03-25-2015 End: 03-25-2015 DJN DJN [facility] Work Phone: Start: 03-25-2015 End: 03-25-2015 Follow Up Appt 1 year Follow Up Appt 1 year [facility] Work Phone: Start: 09-18-2014 End: 09-24-2014 *Hepatic Function Panel *Hepatic Function Panel [facility] Work Phone: Start: 09-18-2014 End: 09-24-2014 Lipid panel [AGGREGATE] *Lipid Profile CC PCP [facility] Work Phone: Start: 09-18-2014 End: 09-24-2014 *Hepatic Function Panel *Hepatic Function Panel [facility] Work Phone: Start: 09-18-2014 End: 09-24-2014 Lipid panel [AGGREGATE] *Lipid Profile CC PCP [facility] Work Phone: Start: 03-20-2014 [...] Lipid panel [AGGREGATE] *Lipid Profile CC PCP [facility] Work Phone: Start: 02-28-2014 End: 03-20-2014 *Hepatic Function Panel *Hepatic Function Panel [facility] Work Phone: Start: 02-28-2014 End: 03-20-2014 Lipid panel [AGGREGATE] *Lipid Profile CC PCP [facility] Work Phone: Start: 12-29-2013 End: 09-18-2013 Echocardiography Echocardiogram (complete) [facility] Work Phone: Start: 12-29-2013 End: 09-18-2013 Echocardiography Echocardiogram (complete) [facility] Work Phone: Start: 09-18-2013 End: 09-19-2013 *Hepatic Function Panel *Hepatic Function Panel [facility] Work Phone: Start: 09-18-2013 End: 09-18-2013 Cardiac Rehab Cardiac Rehab [facility] Work Phone: Start: 09-18-2013 End: 09-18-2013 DJN DJN [facility] Work Phone: Start: 09-18-2013 End: 09-18-2013 Follow Up Appt 1 year Follow Up Appt 1 year [facility] Work Phone: Start: 09-18-2013 End: 09-19-2013 Lipid panel [AGGREGATE] *Lipid Profile CC PCP [facility] Work Phone: Start: 09-18-2013 End: 09-19-2013 *Hepatic Function Panel *Hepatic Function Panel [facility] Work Phone: Start: 09-18-2013 End: 09-18-2013 Cardiac Rehab Cardiac Rehab [facility] Work Phone: Start: 09-18-2013 End: 09-18-2013 HYUN PURVIS [facility] Work Phone: Start: 09-18-2013 End: 09-18-2013 Follow Up Appt 1 year Follow Up Appt 1 year [facility] Work Phone: Start: 09-18-2013 End: 09-19-2013 Lipid panel [AGGREGATE] *Lipid Profile CC PCP [facility] Work Phone: Patient Education [facility] Work Phone: Immunizations Immunization Date Immunization Notes Care Provider Fa [facility] 10-14-2021 pneumococcal conjuga te vaccine, [address] Mena Ragland Work Phone: [facility] 10-14-2021 pneumococcal vaccine , unspecified formulation Dr. Mena Ragland Work Phone: [facility] Work Phone: 05-26-2021 Covid (Moderna) Dr. Karol Ragland Work Phone: [facility] 11-07-2020 Covid (Ernie & Ernie) Dr. Mena Ragland Work Phone: [facility] 04-10-2020 influenza, injectable,quadrivalent , preservative free, pediatric Dr. Mena Ragland Work Phone: [facility] 04-10-2020 Flucelvax Quad (PF) (flu vac qs 2020(4 yr up)CD(PF)) 60 mcg ([address] Mena Ragland Work Phone: [facility] Work Phone: Payers Date Payer Category Payer Self-pay [id number] 2023 Private Health Insurance [id number] 2014 Unknown [id number] Unknown [id number] 2.16.8 [id number] Unknown [id number] 2.16.8 [id number] Unknown [id number] 2.16.8 [id number] Unknown [id number] 2.16.8 [id number] Unknown [id number] 2.16.8 [id number] Unknown [id number] 2.16.8 [id number] Unknown [id number] 2.16.8 [id number] Unknown [id number] 2.16.8 [id number] Unknown [id number] 2.16.8 [id number] Unknown [id number] 2.16.8 [id number] Social History Date Type Detail Facility Start: 10-14-2021 End: 03-17-2023 Tobacco smoking status NHIS Unknown if ever smoked [facility] Start: 1955 Sex Assigned At Male W [facility] Start: 08-10-2024 Tobacco smoking stat us WIIS Never smoked tobacco (finding) [facility] Start: 08-28-2024 Sex Male (finding) [facility] Evaluation note 05-09-2024 Note Date & Type Note Facility 05-09-2024 Evaluation note Diagnosis Onset Date Resolution Essential hypertension chronic May 09, 2024 9:01am History of coronary artery stent placement September 06, 2013 chronic May 09, 2024 9:01am Hyperlipidemia chronic April 302023 9:01am Acute upper respiratory infection acute August 10, 2024 6:03am Contact with or suspected exposure to other viral communicable disease acute August 10, 2024 6:03am [facility] Work Phone: Evaluation note Note Date & Type Note Facility Evaluation note Diagnosis Onset Date Preventative health care acu te [facility] Work Phone: Evaluation note Note Date & Type Note Facility Evaluation note Diagnosis Onset Date Encounter for preventive health examination acute [facility] Work Phone: Evaluation note Note Date & Type Note Facility Evaluation note Diagnosis Onset Date Encounter for preventive health examination acute Cerumen impaction acute Corneal abrasion acute [facility] Work Phone: Evaluation note Note Date & Type Note Facility Evaluation note Diagnosis Onset Date Essential hypertension chron ic Hyperlipidemia chronic Type 2 diabetes mellitus chr onic [facility] Work Phone: Reason for referral (narrative) Note Date & Type Note Facility Reason for referral (narrative) No reason for referral information available [facility] Work Phone: Chief Complaint and Reason for Visit Chief Complaint WELLNESS VISIT Reason for Visit Preventative health care Chief Complaint preventative Reason for Visit Encounter for preven tive health examination Chief Complaint preventative RIGHT EYE IRRITATION EORDER Reason for Visit Encounter for preven tive health examination Cerumen impaction Corneal abrasion Chief Complaint 6 M FU EORDERS Reason for Visit Essential hypertensi on Hyperlipidemia Type 2 diabetes mellitus Chief Complaint Admit Date 1 Y FU May 09, 2024 9:01am INT LABS May 11, 2024 9:31am CAD ASHD May 25, 2024 6:02am SORE THROAT August 10, 2024 6:0 3am INT LABS August 21, 2024 5:4 8am Reason for Visit Admit Date Essential hypertension May 09 9:01am History of coronary artery stent placeme nt May 09, 2024 9:01am Hyperlipidemia May 09, 2024 9:01am Acute upper respiratory infection August 10, 2024 6:03am Contact with or suspected ex posure to other viral communicable disease August 10, 2024 6:03am Family History No Family History Records Found Relationship Condition Age at Onset Recorded Date/T binu Not Specified Diabetes mellitus Unknown Malignant neoplasm Unknown Hypertension Unknown Cerebrovascular accident (CVA) Unknown father Coronary artery disease Unknown Myocardial infarction Unknown Advance Directives No Advanced Directives Records Found Advance Directive Response Recorded Date/ Time Living Will No April 10, 11:03am Power of Pile Trimmer No April 10, 2020 11:03am Advance Directive Response Recorded Date/ Time Living Will No April 10, 020 10:03am Power of Pile Trimmer No April 10, 2020 10:03am Advance Directive Response Recorded Date/ Time Living Will No April 10, 020 11:03am Do you have a Healthcare Power of Pile Trimmer? No April 10, 2020 11:03am Summary Purpose Additional Source Comments Goals (unrecognized section and content) Goals may be documented in a n alternate sectionGoals may be documented in an alternate sectionGoals may be documented in an alternate sectionGoals may be documented in an alternate sectionGoals may be documented in an alternate section Care Teams (unrecognized sec tion and content) Team Status: Active Member Role Status Dates Dr. Duglas Smith MD Family Provider Active Dr. Mena Ragland MD Primary Care Provider Active Team Status: Inactive Member Role Status Dates Dr. Mena Ragland MD Primary Care Provider, Refer ring Provider Active Eliot Pittman PRODUCTION DESIGNER, PRODUCTION DESIGNER-C Attending Provider Active Team Status: Inactive Member Role Status Dates Dr. Mena Ragland MD Primary Care Provider Active Eliot Pittman PRODUCTION DESIGNER, PRODUCTION DESIGNER-C Attending Provider, Referring Prov ider Active Team Status: Inactive Member Role Status Dates Dr. Mena Ragland MD Primary Care Provider, Refer ring Provider Active Zbigniew Cutler PRODUCTION DESIGNER, PRODUCTION DESIGNER-C Attending Provider Active Team Status: Inactive Member Role Status Dates Dr. Mena Ragland MD Primary Care P elizabeth, Attending Provider, Referring Provider Active Team Status: Inactive Member Role Status Dates Dr. Mena Ragland MD Primary Care Provider Active Start: May 09, 2024 End: May 09, 2024 Dr. Mena Ragland MD Referring Provider Active Start: May 09, 2024 End: May 09, 2024 Dr. Percy Horne MD Attending Provider Active S tart: May 09, 2024 End: May 09, 2024 Team Status: Inactive Member Role Status Dates Dr. Mena Ragland MD Primary Care Provider Active Start: May 11, 2024 End: May 11, 2024 Dr. Pecry Horne MD Attending Provider Active S tart: May 11, 2024 End: May 11, 2024 Dr. Percy Horne MD Referring Provider Active S tart: May 11, 2024 End: May 11, 2024 Team Status: Inactive Member Role Status Dates Dr. Mena Ragland MD Primary Care Provider Active Start: May 25, 2024 End: May 25, 2024 Dr. Percy Horne MD Attending Provider Active S tart: May 25, 2024 End: May 25, 2024 Dr. Percy Horne MD Referring Provider Active S tart: May 25, 2024 End: May 25, 2024 Team Status: Active Member Role Status Dates Dr. Mena Ragland MD Primary Care Provider Active Start: May 25, 2024 Dr. Percy Horne MD Attending Provider Active S tart: May 25, 2024 Team Status: Inactive Member Role Status Dates Dr. Mena Ragland MD Primary Care Provider Active Start: August 10, 2024 End: August 10, 2024 Dr. Mena Ragland MD Referring Provider Active Start: August 10, 2024 End: August 10, 2024 Navin DOYLE PA Attending Provider Active Sta rt: August 10, 2024 End: August 10, 2024 Team Status: Inactive Member Role Status Dates Dr. Mena Ragland MD Primary Care Provider Active Start: August 21, 2024 End: August 21, 2024 Dr. Mena Ragland MD Attending Provider Active Start: August 21, 2024 End: August 21, 2024 Dr. Mena Ragland MD Referring Provider Active Start: August 21, 2024 End: August 21, 2024 (unrecognized sect ion and content) No Status Records Found INFORMATION SOURCE (unrecogn ized section and content) DATE CREATED AUTHOR 09/02/2024 [facility] FOR RECORDS PERTAINING TO PATIENTS WHO ARE [...] BE BASED ON THE PRIMARY CLINICAL RECORDS. [facility]. provides no warranty or guarantee of the accuracy or completeness of information in this document.
[2024-12-08 08:49] LABS: Anion Gap 10 (5-15); BUN 17 mg/dL (4-19); BUN/Creat Ratio 16.2 RATIO (10-20); Calcium,Total 9.1 mg/dL (7.6-11.0); Carbon Dioxide 22.1 mmol/L (21.0-32.0); Chloride 104 mmol/L (98-108); Glucose 133 mg/dL (70-99); Potassium 4.2 mmol/L (3.3-5.1)
[2024-12-08 09:22] LABS: AST(SGOT) 42 U/L (<=37); Alanine Aminotransfer ALT/SGPT 48 U/L (<=46); Albumin, Serum 4.0 g/dL (3.4-4.8); Alkaline Phosphatase 70 U/L (40-129); Bilirubin, Direct 0.31 mg/dL (0.00-0.30); Cholesterol 128 mg/dL (<=200); Globulin 2.9 g/dL (2.2-4.2); Low Density Lipoprotein Calc. 60 mg/dL; Triglycerides 100 mg/dL; Very Low Density Lipoprotein 20 mg/dL (5-40); cholesterol:hdl ratio screen 2.64
== END | disposition home or self-care (01) ==
LOC: MTLAB 07:21
PROVIDERS: Internal Medicine Cardiovascular Disease; PCP Internal Medicine; Referring Provider Internal Medicine; Visit Provider Internal Medicine
DX: E78.00 Pure hypercholesterolemia, unspecified (principal); E11.9 Type 2 diabetes mellitus without complications
CPT/HCPCS: 36415; 80048; 80061; 80076; 83036